=== PATIENT | male | born 1945 | race Caucasian/White ===

== ENCOUNTER 2016-09-30 13:29 | Outpatient (CLI) | payer MEDICARE, BC ==
[2016-09-30 13:51] LABS: #Basophils 0.1 thou/uL (0.0-0.2); #Eosinphils 0.2 thou/uL (0.0-0.7); #Monocytes 0.5 thou/uL (0.11-0.59); #Neutrophils 4.3 thou/uL (1.40-6.50); %Basophils 1.2 % (0.0-1.0); %Eosinophils 2.5 % (0.0-10.0); %Lymphocytes 28.1 % (21.0-51.0); %Monocytes 7.4 % (0.0-10.0); %Neutrophils 60.9 % (42.0-75.0); Hemoglobin 15.9 g/dL (14.0-18.0); Mean Corpuscular HGB CONC 34.8 g/dL (32.0-36.0); Mean Corpuscular Hemoglobin 33.8 pg (27.0-31.0); Mean Corpuscular Volume 97.3 fl (80.0-94.0); Mean Platelet Volume 6.9 fL (7.4-10.4); Platelet Count 234 thou/uL (130-400); RBC Distribution Width 11.9 % (11.5-14.5); Red Blood Cell (RBC) Count 4.69 mill/uL (4.70-6.10)
[2016-09-30 14:12] LABS: ALT (SGPT) Less than 6 U/L (0-55); AST (SGOT) 15 U/L (5-34); Albumin 4.5 g/dL (3.4-4.8); Alkaline Phosphatase 95 U/L (40-150); Anion Gap 16 mmol/L (10-20); BUN (Urea Nitrogen) 25 mg/dL (8.4-25.7); Bilirubin, Direct 0.2 mg/dL (0.1-0.3); Bilirubin, Total 0.6 mg/dL (0.2-1.2); Calc. Creatinine Clearance 0 mL/min (70-130); Calcium 9.3 mg/dL (7.8-10.44); Carbon Dioxide 25 mmol/L (23-31); Cardiac Risk 3.9 (Less than 4.5); Chloride 106 mmol/L (98-107); Cholesterol 113 mg/dL (< 200 Desired); Estimated GFR-MDRD 90; Glucose 106 mg/dL (80-115); HDL Cholesterol 29 mg/dL (>60 Neg Risk); LDL Cholesterol, Calculated 37 mg/dL; Potassium 4.5 mmol/L (3.5-5.1); Protein, Total 6.9 g/dL (5.8-8.1); Sodium 142 mmol/L (136-145); Triglycerides 237 mg/dL (Less than 150)
== END 2016-09-30 13:30 | disposition home or self-care (01) ==
LOC: MADLABBHPM 13:29
PROVIDERS: ATTEND Family Medicine
DX: I10 Essential (primary) hypertension (principal)
CPT/HCPCS: 36415; 80048; 80061; 80076; 84443; 85025

== ENCOUNTER 2017-05-05 13:31 | Outpatient (CLI) | payer MEDICARE, BC | END 2017-05-05 13:32 | disposition home or self-care (01) | LOC: MADLAB 13:31 | PROVIDERS: ATTEND Urology | DX: G20 Parkinson's disease (principal) | CPT/HCPCS: 36415; G0103 ==

== ENCOUNTER 2017-07-21 12:49 | Outpatient (CLI) | payer MEDICARE, BC ==
--- NOTE | 2017-07-21 17:00 | RAD ---
TWO VIEW CHEST 07/21/17 HISTORY: Solitary pulmonary nodule. Side of nodule is not specified. Comparison made to a prior exam of 11/13/14. Lungs are well aerated. There is no evidence of infiltrate. There is evidence of two small calcified granuloma in the right mid lung which appears stable. Heart and mediastinum unremarkable. Osseous str uctures are unremarkable. IMPRESSION: Tiny calcified granuloma in the right lung are stable. Chest is unchanged from prior exam with no acu te process identified. POS: [facility]
--- NOTE | 2017-07-21 17:11 | RAD ---
TWO VIEWS LUMBAR SPINE: Date: 07-21-17 History: Low back pain. FINDINGS: Vascular calcifications are seen overlying the left upper quadrant. There also calcifications overlyi ng the right upper quadrant as well as left renal shadow. The right renal shadow is mostly obscured. Calcification of the right upper quadrant could be related to ingested material given the concentric nature. However, the calcification overlying the left renal shadow may represent left nephrolithiasis but no calculus is seen on a CT exam on 06-10-17. Vascular calcifications are seen in the abdominal aorta and iliac arteries. There are five non-rib bearing lumbar type vertebral bodies. Multilevel osteophytes are seen with bashir rowing of the intervertebral disc spaces at all levels. There are mild endplate degenerative changes at the L2-3 level. The vertebral body heights are within normal limits. There is no fracture or sublu xation involving the lumbar spine. IMPRESSION: 1. Multilevel degenerative changes of the lumbar spine without evidence of fracture or subluxation. T here is slight convex curvature of the lumbar spine. 2. Calcifications overlying the upper quadrants bilaterally which may be related to ingested material within bowel. While these calcifications also overlie the renal shadows bilaterally, no calculus was seen on a CT exam on 06-10-17. POS: [facility]
== END 2017-07-21 12:50 | disposition home or self-care (01) ==
LOC: MADLABBHPM 12:49
PROVIDERS: ATTEND Urology
DX: R91.1 Solitary pulmonary nodule (principal); M54.5 Low back pain; R82.8 Abnormal findings on cytological and histological examination of urine
CPT/HCPCS: 36415; 71020; 72100; 88121

== ENCOUNTER 2017-11-28 23:30 | Emergency (ER) | payer MEDICARE, BC ==
[~2017-11-28 23:30] MED LIST: Sterile Water Irrigation 250 ML BOT ONE
== END 2017-11-28 23:55 | disposition home or self-care (01) ==
LOC: MADERS 23:30
DX: S01.01XA Laceration without foreign body of scalp, initial encounter (principal); F32.9 Major depressive disorder, single episode, unspecified; G20 Parkinson's disease; W17.89XA Other fall from one level to another, initial encounter
CPT/HCPCS: 99283

== ENCOUNTER 2017-12-08 11:20 | Emergency (ER) | payer MEDICARE, BC | END 2017-12-08 14:16 | disposition home or self-care (01) | LOC: MADERS 11:20 | DX: S01.01XD Laceration without foreign body of scalp, subsequent encounter (principal); G20 Parkinson's disease; F32.9 Major depressive disorder, single episode, unspecified ==

== ENCOUNTER 2018-06-18 14:06 | Outpatient (CLI) | payer MEDICARE, BC ==
[2018-06-18 14:14] LABS: Sodium 142 mmol/L (136-145)
== END 2018-06-18 14:07 | disposition home or self-care (01) ==
LOC: MADLAB 14:06
PROVIDERS: ATTEND Urology
DX: G20 Parkinson's disease (principal)
CPT/HCPCS: 84295

== ENCOUNTER 2018-09-08 11:10 | Inpatient (IN) | payer MEDICARE, BC ==
[~2018-09-08 11:10] MED LIST changes: +Sodium Chloride 0.9% 1,000 ML BAG ONE; -Sterile Water Irrigation 250 ML BOT ONE
[2018-09-08 11:49] LABS: #Eosinphils 0.1 thou/uL (0.0-0.7); #Lymphocytes 1.2 thou/uL (1.20-3.40); #Monocytes 0.5 thou/uL (0.11-0.59); %Basophils 0.4 % (0.0-1.0); %Eosinophils 0.8 % (0.0-10.0); %Lymphocytes 13.1 % (21.0-51.0); %Monocytes 5.8 % (0.0-10.0); %Neutrophils 79.8 % (42.0-75.0); Hemoglobin 15.2 g/dL (14.0-18.0); Mean Corpuscular Hemoglobin 33.4 pg (27.0-31.0); Mean Corpuscular Volume 95.4 fL (78.0-98.0); Mean Platelet Volume 6.3 fL (7.4-10.4); Platelet Count 287 thou/uL (130-400); RBC Distribution Width 11.3 % (11.5-14.5); Red Blood Cell (RBC) Count 4.53 mill/uL (4.70-6.10); White Blood Cell (WBC) Count 8.8 thou/uL (4.8-10.8)
[2018-09-08 12:00] LABS: ALT (SGPT) 8 U/L (8-55); AST (SGOT) 17 U/L (5-34); Albumin 4.5 g/dL (3.4-4.8); Alkaline Phosphatase 132 U/L (40-150); Anion Gap 15 mmol/L (10-20); BUN (Urea Nitrogen) 17 mg/dL (8.4-25.7); Bilirubin, Total 0.7 mg/dL (0.2-1.2); Calc. Creatinine Clearance 0 mL/min (70-130); Carbon Dioxide 26 mmol/L (23-31); Chloride 102 mmol/L (98-107); Estimated GFR-MDRD Greater than 90; Globulin 3.4 g/dL (2.4-3.5); Glucose 92 mg/dL (83-110); Potassium 3.8 mmol/L (3.5-5.1); Protein, Total 7.9 g/dL (5.8-8.1); Sodium 139 mmol/L (136-145)
--- NOTE | 2018-09-08 12:59 | RAD ---
UPRIGHT PORTABLE CHEST ONE VIEW: HISTORY: Cough. COMPARISON: 07/21/2017 FINDINGS: Heart size is within normal limits. Minimal increased linear and interstitial markings bilaterally w ithout confluent pneumonia or overt edema. IMPRESSION: Mild stable increased markings. No evidence for pneumonia. POS: [facility]
[2018-09-08 13:12] LABS: Bilirubin Negative (Negative); Blood, Urine Trace (Negative); Glucose, Urine (Dipstick) Negative (Negative); Leukocyte Small (Negative); Nitrite Positive (Negative); Protein, Urine (Dipstick) 100 mg/dL (Neg-Trace); Specific Gravity, Urine 1.025 (1.005-1.030); pH, Urine 7.5 (5.0-9.0)
[2018-09-08 13:13] LABS: Clarity Cloudy (Clear)
[2018-09-08 13:17] LABS: Bacteria/HPF 1+ HPF (None Seen); RBC/HPF 0-3 HPF (0-3); Squamous Epithelial 0-3 HPF (0-3)
[2018-09-08] MEDS ORDERED: cefTRIAXone\\ROCEPHIN 1 GM VIAL ONE (14:02)
[2018-09-08] MEDS ORDERED: Acetaminophen 650 MG Suppository PR PRN (15:05)
[2018-09-08] MEDS ORDERED: Ondansetron PF 4 MG/2 ML Vial SLOW IVP PRN (15:05)
[2018-09-08 15:12] VITALS: BMI 21.4
[2018-09-08] MEDS ORDERED: Sodium Chloride 0.9% 1,000 ML IV SCH (15:15)
[2018-09-08 16:41] LABS: Lactic Acid 1.8 mmol/L (0.5-2.2)
[2018-09-08] MEDS: Sodium Chloride 0.9% 1,000 ML IV SCH ×3 (17:48→21:39)
[2018-09-08] MEDS ORDERED: ZONISAMIDE 50 MG PO SCH (21:00)
[2018-09-08] MEDS ORDERED: Potassium Chloride 10 MEQ TAB PO SCH (21:00)
[2018-09-08] MEDS: Carbidopa/Levodopa 25-250 mg Tablet PO SCH (21:24)
[2018-09-08] MEDS: Carbidopa/Levodopa CR 50-200 mg Tablet PO SCH (21:24)
[2018-09-08] MEDS: risperiDONE 1 MG TAB PO SCH (21:26)
[2018-09-08] MEDS: Tamsulosin HCl 0.4 MG CAP PO SCH (21:27)
[2018-09-08] MEDS: DESMOPRESSIN ACETATE 0.2 MG PO SCH (21:53)
[2018-09-09 05:32] LABS: #Eosinphils 0.1 thou/uL (0.0-0.7); #Lymphocytes 1.7 thou/uL (1.20-3.40); #Monocytes 0.5 thou/uL (0.11-0.59); #Neutrophils 4.8 thou/uL (1.40-6.50); %Basophils 0.4 % (0.0-1.0); %Eosinophils 1.3 % (0.0-10.0); %Lymphocytes 23.9 % (21.0-51.0); %Monocytes 7.5 % (0.0-10.0); Hemoglobin 13.1 g/dL (14.0-18.0); Mean Corpuscular HGB CONC 35.1 g/dL (32.0-36.0); Mean Corpuscular Hemoglobin 32.9 pg (27.0-31.0); Mean Corpuscular Volume 93.8 fL (78.0-98.0); Mean Platelet Volume 6.4 fL (7.4-10.4); Platelet Count 265 thou/uL (130-400); RBC Distribution Width 11.3 % (11.5-14.5); Red Blood Cell (RBC) Count 3.98 mill/uL (4.70-6.10); White Blood Cell (WBC) Count 7.2 thou/uL (4.8-10.8)
[2018-09-09] MEDS: Sodium Chloride 0.9% 1,000 ML IV SCH ×2 (05:44→05:48)
[2018-09-09 05:47] LABS: Anion Gap 13 mmol/L (10-20); BUN (Urea Nitrogen) 11 mg/dL (8.4-25.7); Calc. Creatinine Clearance 94 mL/min (70-130); Calcium 8.9 mg/dL (7.8-10.44); Carbon Dioxide 22 mmol/L (23-31); Chloride 109 mmol/L (98-107); Estimated GFR-MDRD Greater than 90; Glucose 95 mg/dL (83-110); Potassium 3.4 mmol/L (3.5-5.1); Sodium 141 mmol/L (136-145)
[2018-09-09] MEDS: Acetaminophen 325 MG TAB PO PRN ×2 (06:14→21:20)
[2018-09-09] MEDS ORDERED: Sodium Chloride 0.9% 1,000 ML IV SCH (08:14)
[2018-09-09] MEDS: Venlafaxine HCl XR 150 MG CAP PO SCH (08:39)
[2018-09-09] MEDS: Carbidopa/Levodopa CR 50-200 mg Tablet PO SCH ×3 (08:39→21:16)
[2018-09-09] MEDS: Carbidopa/Levodopa 25-250 mg Tablet PO SCH ×3 (08:39→21:16)
[2018-09-09] MEDS: Tamsulosin HCl 0.4 MG CAP PO SCH ×2 (08:39→21:19)
[2018-09-09] MEDS: Dextroamphetamine/Amphetamine [Adderall 20 Mg Tablet] 20 MG PO SCH (09:02)
[2018-09-09] MEDS: VERAPAMIL HCL 180 MG PO SCH (09:02)
[2018-09-09] MEDS: Enoxaparin Sodium 40 MG/0.4 ML SYRINGE SC SCH (09:04)
[2018-09-09] MEDS: Atorvastatin Calcium 10 MG TAB PO SCH (09:06)
[2018-09-09] MEDS: Potassium Chloride 20 MEQ TAB PO SCH ×2 (09:43→18:31)
[2018-09-09] MEDS ORDERED: cefTRIAXone\\ROCEPHIN 1 GM in Sodium Chloride 0.9% 100 ML IVPB SCH (14:00)
--- NOTE | 2018-09-09 14:28 | HP ---
Admitted to acute care on 09/08/2018. CHIEF COMPLAINT: Not responding as usual and marked increased weakness. HISTORY OF PRESENT ILLNESS: The patient is a 73-year-old white male, who has a history of advanced Parkinson disease, complicated by some dysphagia, who requires assistance with all his ADLs. He lives with his , who is his primary caregiver. He also has hypertension and depression. The patient had been seen in my office on the day before this admission for checkup and also because he was having increased trouble with managing his oral secretions, it seemed likely he could not spit these up and he was having little increased trouble with his swallowing and at times coughing following drinking liquids. At the time of the visit on 09/07, he was up in a wheelchair, was alert, interactive with clear lungs, and was in no distress. Arrangements were made for his home health service to have Speech Therapy see him and arrange for modified barium swallow. In the interval, he was going to continue the mechanical soft diet, thickened liquids if necessary, and dietary modifications to assist with the eating. On the following morning, the morning of 09/08/2018, the patient's , Mari, went to get him up out of bed and he seemed very weak and was not in his usual alert and interactive state. She went to try to get him up and he kind of wilted down into the floor. He did not hit his head nor did he lose consciousness, but he was so weak , he was unable to stand. He was not able to get up on his own nor with his 's help. She also noticed that he would not talk ordinarily, he can engage in some conversation. This morning, he just kind of stared and looked at her and would not answer any questions. EMS was called, and they assisted him up and found him to be weak and still less interactive than usual. As a result, he was brought to the emergency room, where he was evaluated. In the emergency room, he was found to have a blood pressure of 117/48 with a pulse of 82, O2 saturation of 92%, and respirations of 14. He was not very interactive. He was started on IV fluids as further workup was done. The patient's , Mari, has asked me to check him and as I had just seen him yesterday. The patient had been in the emergency room for a while and had an opportunity to receive some fluids. After I saw him, his said he was better, much more engaged and talkative, and recognized me and said he was feeling okay. He did not have any specific complaints. He was still extremely weak and could not sit up on the stretcher without help and certainly could not get up and stand or walk, which ordinarily he is able to do. His lab work was reviewed, which showed an H and H of 15.2 and 43.3 with a white cell count of 8800 with 80% segs, 13% lymphocytes, platelet count of 287,000, and hemoglobin of 15.2. Sodium 139, potassium of 3.8, BUN of 17, creatinine 0.83, GFR greater than 90, and glucose 92. His lactic acid was 2.4. This was later repeated. Few hours later, after fluids have been received, it was down to 1.8. Urine was obtained, and the urine looked very cloudy and malodorous, had positive nitrite and wbc's were too numerous to count. There were 0 to 3 squamous epithelial cells. Chest x-ray showed the heart size was normal. There was no evidence of infiltrate, maybe a little atelectasis at the left base. No evidence of any CHF. In visiting with the patient and his , his mental status is little better and he is kind of waking back up to a more alert state, but he is still extremely weak and would not be able to be managed at home on his weakened state. It appears the patient has urinary tract infection complicated by dehydration, presenting with altered mental status and increased weakness that has left him nonambulatory. The patient will be admitted for these diagnoses, for IV fluid hydration, and IV antibiotics. He has had cultures drawn and then received his first dose of Rocephin in the emergency room. 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 He also has hypertension, diverticulosis, history of hyperlipidemia, particularly with hypertriglyceridemia; cluster headaches, controlled with verapamil; depression with apathy. Colonoscopy in 2004 showed diverticular disease. PRESENT MEDICATIONS: 1. Atorvastatin 40 mg daily. 2. Venlafaxine ER 150 mg daily. 3. KCl 10 mEq one b.i.d. 4. Fluticasone two sprays in each nostril daily. 5. Verapamil ER 180 mg daily. 6. Carbidopa/levodopa extended release 50/200 one t.i.d. 7. Carbidopa/levodopa 25/250 one t.i.d. 8. Adderall XR 10 mg q.a.m. 9. Restasis 0.05% one drop in the eyes b.i.d. 10. Tamsulosin 0.4 mg b.i.d. 11. Risperdal 2 mg one at night. 12. Cromolyn Sodium 4% ophthalmic solution one drop in the eyes t.i.d. 13. Desmopressin 0.2 mg three tablets at bedtime. 14. Finasteride 5 mg daily. ALLERGIES: AMITRIPTYLINE CAUSES ANXIETY, PALPITATIONS, AND RACING HEART. REVIEW OF SYSTEMS: GENERAL: The patient said he is feeling better. His said he has had no fevers. She does not think his weight has changed. HEAD AND NECK: No complaint. When he wilted into the floor this morning, he did not hit his head nor was he injured. PULMONARY: The patient at times has a little mild productive cough. He has a frequent rattle because he cannot clear the saliva in his throat due to weakness. CARDIOVASCULAR: No chest pain. GI: The patient has trouble swallowing and swallowing some liquids. He is on a mechanical soft diet. : Presently no complaint. ADLs: The patient is receiving physical therapy through Home Health and this helps him. He can walk with walker and some aid. He requires assistance with bathing and dressing. He is usually continent of urine and stools and usually feeds himself, requires someone to manage all his instrumental ADLs. HABITS: The patient smokes less than half a pack of cigarettes a day. Alcohol, none. SOCIAL HISTORY: The patient is , lives with his who is his primary caregiver. Has home health to assist with his care. CODE STATUS: Full code. PHYSICAL EXAMINATION: GENERAL: Shows a 73-year-old white male, who is lying on the stretcher with the head of the bed elevated. He is alert, talks very slowly, appears comfortable, and in no distress. VITAL SIGNS: His temperature is 96.2, pulse 81, respirations are 20, O2 saturation 94% on room air, and blood pressure 126/64. His weight is 154 pounds. His height is 70 inches. HEENT: Head, normocephalic and atraumatic. Eyes; pupils are equal, round, and reactive. Nose normal. Mouth and throat, normal. Ears; TMs are clear. NECK: Carotids are equal and strong. No bruits. Thyroid not enlarged. LUNGS: Clear except for some mild coarse expiratory breath sounds. HEART: Regular rate. No murmurs. ABDOMEN: Soft. No organomegaly. EXTREMITIES: No edema. NEUROLOGIC: The patient is alert, very slow in answering questions, speaks in a monotone. His face has no expression. He has generalized weakness. There was no stiffness or cogwheeling in his extremities. IMPRESSION: 1. Urinary tract infection. a. Presenting with altered mental status, dehydration, increased weakness, and a fall. 2. Dehydration. 3. Altered mental status. a. Secondary to the urinary tract infection and dehydration. b. Improved with the IV fluids. 4. Marked increased weakness. a. Complicated by fall with no injuries on the morning of 09/08/2018. 5. Advanced Parkinson disease. a. Complicated by dysphagia, gait abnormality, weakness, and increased falls. b. Requires assistance with ADLs. c. Complicated by Parkinson dementia. 6. Hypertension. 7. Depression. a. Complicated by apathy. 8. Cigarette abuse. 9. History of pulmonary granuloma. PLAN: The patient has been admitted to the hospital due to the urinary tract infection, presenting with altered mental status, weakness, fall, and dehydration. We will continue the IV fluids and the IV antibiotics. Once he is a little better, we will have Physical Therapy begin working with him in an effort to try to improve his functional capabilities. We will also have Speech Therapy see him to assess the dysphagia and at some point, we will need a modified barium swallow. Continue his routine medication. See orders. Job ID: [id number] [facility]TDD
--- NOTE | 2018-09-09 14:28 | PRG ---
DATE OF SERVICE: 09/09/2018 SUBJECTIVE: The patient said he feels better today. He has had a good night. He is sitting up on the side of the bed preparing to walk with physical therapy. OBJECTIVE: GENERAL: The patient is alert, answers questions appropriately, looks much better, much more interactive, and looks back to his baseline mental status. VITAL SIGNS: His vital signs show temperature 99.9, pulse 80, respirations 18, O2 saturation 94% on room air, and blood pressure 106/51. LUNGS: Clear. HEART: Regular rate. MOUTH: Mucous membranes are moist. SKIN: Turgor is good. LABORATORY DATA: Lab shows an H and H of 13.1 and 37.4, white cell count 7200 with 67% segs, 24% lymphocytes, and a platelet count of 265,000. Sodium is 141, potassium 3.4, BUN is 11, creatinine 0.7, GFR greater than 90, glucose 95. Urine and blood cultures pending. ASSESSMENT: 1. Urinary tract infection. a. Presenting with altered mental status, dehydration, increased weakness, and a fall. b. Improved as of 09/09/2018. 2. Dehydration. a. Resolved as of 09/09/2018. 3. Altered mental status. a. Secondary to the urinary tract infection and dehydration. b. Resolving. Returned to his baseline as of 09/09/2018. 4. Marked increased weakness. a. Complicated by fall with no injuries on the morning of 09/08/2018. b. Improved. 5. Advanced Parkinson disease. a. Complicated by dysphagia, gait abnormality, weakness, and increased falls. b. Requires assistance with ADLs. c. Complicated by Parkinson dementia. 6. Hypertension. 7. Depression. a. Complicated by apathy. 8. Cigarette abuse. 9. History of pulmonary granuloma. PLAN: The patient looks much better today. We will continue the IV antibiotics. Cultures are pending. We will reduce his fluids to 75 mL/hour. PT will continue to work with him, and Occupational Therapy will be working with him. We will increase his potassium supplementation. Recheck lytes and CBC in the morning. Job ID: [id number] [facility]
[2018-09-09] MEDS: DESMOPRESSIN ACETATE 0.2 MG PO SCH (21:16)
[2018-09-09] MEDS: ZONISAMIDE 25 MG PO SCH (21:18)
[2018-09-09] MEDS: risperiDONE 1 MG TAB PO SCH (21:19)
[2018-09-10 04:59] LABS: #Eosinphils 0.1 thou/uL (0.0-0.7); #Monocytes 0.5 thou/uL (0.11-0.59); %Basophils 0.6 % (0.0-1.0); %Eosinophils 1.9 % (0.0-10.0); %Lymphocytes 35.8 % (21.0-51.0); %Monocytes 9.2 % (0.0-10.0); %Neutrophils 52.6 % (42.0-75.0); Hemoglobin 13.5 g/dL (14.0-18.0); Mean Corpuscular HGB CONC 34.5 g/dL (32.0-36.0); Mean Corpuscular Hemoglobin 32.5 pg (27.0-31.0); Mean Corpuscular Volume 94.3 fL (78.0-98.0); Mean Platelet Volume 6.2 fL (7.4-10.4); Platelet Count 239 thou/uL (130-400); RBC Distribution Width 11.6 % (11.5-14.5); Red Blood Cell (RBC) Count 4.15 mill/uL (4.70-6.10); White Blood Cell (WBC) Count 5.6 thou/uL (4.8-10.8)
[2018-09-10 05:10] LABS: Anion Gap 13 mmol/L (10-20); BUN (Urea Nitrogen) 8 mg/dL (8.4-25.7); Calc. Creatinine Clearance 90 mL/min (70-130); Calcium 9.3 mg/dL (7.8-10.44); Carbon Dioxide 25 mmol/L (23-31); Chloride 107 mmol/L (98-107); Estimated GFR-MDRD Greater than 90; Glucose 95 mg/dL (83-110); Potassium 3.6 mmol/L (3.5-5.1); Sodium 141 mmol/L (136-145)
[2018-09-10] MEDS: Potassium Chloride 20 MEQ TAB PO SCH ×2 (09:44→16:40)
[2018-09-10] MEDS: Tamsulosin HCl 0.4 MG CAP PO SCH ×2 (09:45→21:05)
[2018-09-10] MEDS: Carbidopa/Levodopa 25-250 mg Tablet PO SCH ×3 (09:45→21:06)
[2018-09-10] MEDS: Enoxaparin Sodium 40 MG/0.4 ML SYRINGE SC SCH (09:45)
[2018-09-10] MEDS: Atorvastatin Calcium 10 MG TAB PO SCH (09:45)
[2018-09-10] MEDS: Carbidopa/Levodopa CR 50-200 mg Tablet PO SCH ×3 (11:33→21:05)
[2018-09-10] MEDS: Dextroamphetamine/Amphetamine [Adderall 20 Mg Tablet] 20 MG PO SCH (14:30)
--- NOTE | 2018-09-10 14:36 | PRG ---
DATE OF SERVICE: 09/10/2018 SUBJECTIVE: Last evening, the patient pulled his IV out, it stopped. He has been eating well and taking fluids and he has had no more fever. The IV Rocephin was stopped, and he was placed on Levaquin. Speech Therapy has seen the patient and the patient is on observations of different food substances with slowness of swallowing, trouble moving food to the back of his throat, and with liquids will cough. It was concerned about possible aspiration and she has recommended a modified barium swallow to further assess his difficulties. In the interval, she has recommended continuation of a pureed diet and nectar-thickened liquids, which has been ordered and crushed medicines. His says he has no trouble taking medicines and he seems to eat very well. A modified barium swallow has been ordered. OBJECTIVE: GENERAL: The patient apparently did not rest well last night. This , morning, was sleeping, and gradually, he was awaken and he appears in no distress. VITAL SIGNS: Temperature of 97.8, pulse 80, respirations 16, oxygen saturation 96% on room air, blood pressure 156/97. LUNGS: Clear. HEART: Regular rate. LABORATORY DATA: H and H of 13.5 and 39.1, white blood cell count 5600 with 53% segs, 36% lymphocytes, and platelet count of 239,000. Sodium is 141, potassium 3.6, BUN 8, creatinine 0.73, GFR greater than 90, glucose 95. Blood cultures have no growth x2. Urine cultures growing a Proteus mirabilis, colony count of 50,000 to 75,000, sensitive to ceftriaxone, Cipro, and Levaquin. ASSESSMENT: 1. Urinary tract infection. a. Presenting with altered mental status, dehydration, increased weakness and fall. b. Urine culture growing Proteus mirabilis, colony count 50,000 to 75,000. Organisms sensitive to ceftriaxone and Levaquin. Blood cultures, no growth. c. Improved and now on oral antibiotics with Levaquin as of 09/10/2018. 2. Dehydration. a. Resolved as of 09/10/2018. 3. Altered mental status. a. Secondary to urinary tract infection and dehydration. b. Resolved and back to his baseline as of 09/10/2018. 4. Marked increased weakness. a. Complicated by falls with no injury on the morning of 09/08/2018. b. Improved as of 09/10/2018. 5. Advanced Parkinson's disease. a. Complicated by dysphagia, gait abnormality, weakness, and increased falls. b. Requires assistance with ADLs. c. Complicated by Parkinson's dementia. 6. Hypertension. 7. Depression. Complicated by apathy. 8. Cigarette abuse. 9. History of pulmonary granuloma. 10. Dysphagia. PLAN: The patient is better today and has been able to be switched to oral antibiotics. The dehydration is resolved. He is still very weak, did not rest well last night. We will continue physical therapy and occupational therapy, anticipate moving him to extended care for continuation of the therapy tomorrow. Arrangements have been made for him to undergo modified barium swallow this afternoon. We will phase out his Adderall, we will reduce this to 10 mg daily, and after a day or two, we will stop this. Job ID: [id number] [facility]TD[facility]
[2018-09-10] MEDS: VERAPAMIL HCL 180 MG PO SCH (16:41)
[2018-09-10] MEDS: Venlafaxine HCl XR 150 MG CAP PO SCH (16:41)
[2018-09-10] MEDS: DESMOPRESSIN ACETATE 0.2 MG PO SCH (21:06)
[2018-09-10] MEDS: risperiDONE 1 MG TAB PO SCH (21:06)
[2018-09-10] MEDS: ZONISAMIDE 25 MG PO SCH (21:08)
[2018-09-11 06:46] VITALS: BP 165/73; TEMP 97.5
[2018-09-11] MEDS ORDERED: Sodium Chloride 0.9% 1,000 ML BAG ONE (06:48)
[2018-09-11] MEDS: Enoxaparin Sodium 40 MG/0.4 ML SYRINGE SC SCH (08:08)
[2018-09-11] MEDS: Potassium Chloride 20 MEQ TAB PO SCH (08:08)
[2018-09-11] MEDS: Tamsulosin HCl 0.4 MG CAP PO SCH (08:08)
[2018-09-11] MEDS: Atorvastatin Calcium 10 MG TAB PO SCH (08:08)
[2018-09-11] MEDS: Venlafaxine HCl XR 150 MG CAP PO SCH (08:09)
[2018-09-11] MEDS: Carbidopa/Levodopa CR 50-200 mg Tablet PO SCH (08:09)
[2018-09-11] MEDS: Carbidopa/Levodopa 25-250 mg Tablet PO SCH (08:09)
[2018-09-11] MEDS: VERAPAMIL HCL 180 MG PO SCH (08:20)
[2018-09-11] MEDS ORDERED: Dextroamphetamine/Amphetamine [Adderall 20 Mg Tablet] 20 MG PO SCH (09:00)
--- NOTE | 2018-09-12 13:13 | PRG ---
DATE OF SERVICE: 09/11/2018 SUBJECTIVE: The patient is up in his [place] chair this morning. He is awake and he talks to me some, but very slow. His movements are very slow. He is still weak, but overall he looks better. He is much more alert and interactive. Yesterday, he tolerated the trip to [place] for his modified barium swallow. OBJECTIVE: GENERAL: The patient is sitting up in chair. He is alert, talks slowly to me, appears better. He is in no distress. VITAL SIGNS: His temperature is 97.5, pulse 79, respirations 16, O2 saturation 94%, and blood pressure 165/73. LUNGS: Clear. HEART: Regular rate. LABORATORY DATA: The modified barium swallow showed penetration and aspiration with thin liquid consistencies. The other consistency showed evidence of premature spillage into the vallecula and the piriform sinuses. Oral pharyngeal swallowing is delayed. Report from speech therapy pending. ASSESSMENT: 1. Urinary tract infection. a. Presenting with altered mental status, dehydration, increased weakness and fall. b. Urine culture growing Proteus mirabilis, colony count 50,000 to 75,000. Organisms sensitive to ceftriaxone and Levaquin. Blood cultures, no growth. c. Improved. Remains on oral antibiotics with Levaquin as of 09/11/2018. 2. Dehydration. a. Resolved as of 09/10/2018. 3. Altered mental status. a. Secondary to urinary tract infection and dehydration. b. Resolved and back to his baseline as of 09/10/2018. c. Remains at his mental status baseline as of 09/11. 4. Marked increased weakness. a. Complicated by falls with no injury on the morning of 09/08/2018. b. Improved where he is tolerating sitting up in a chair and walks short distance with the aid of therapy as of 09/11/2018. 5. Advanced Parkinson's disease. a. Complicated by dysphagia, gait abnormality, weakness, and increased falls. b. Requires assistance with ADLs. c. Complicated by Parkinson's dementia. 6. Hypertension. 7. Depression. Complicated by apathy. 8. Cigarette abuse. 9. History of pulmonary granuloma. 10. Dysphagia. a. Modified barium swallow showed penetration and aspiration with thin liquids, delayed swallowing and spillage into the vallecula and piriform sinuses. Study done on 09/10. He requires a pureed diet with honey thickened liquids. PLAN: The patient will complete a 7-day course of Levaquin. Speech Therapy will continue to work with the patient. The patient will be on a pureed diet with honey-thickened liquids. PT and OT will also continue to work with the patient. We will transfer the patient to extended care where he can receive these services. Job ID: [id number] [facility]TDD
== END 2018-09-11 13:10 | disposition swing bed (61) | DRG 690 ==
LOC: MADERS 11:10 → MADMS 13:45
PROVIDERS: ADMIT Family Medicine; ATTEND Family Medicine
DX: N39.0 Urinary tract infection, site not specified (principal); E86.0 Dehydration; G20 Parkinson's disease; F02.80 Dementia in other diseases classified elsewhere, unspecified severity, without behavioral disturbance, psychotic disturbance, mood disturbance, and anxiety; I10 Essential (primary) hypertension; F32.9 Major depressive disorder, single episode, unspecified; R13.10 Dysphagia, unspecified; F17.210 Nicotine dependence, cigarettes, uncomplicated; B96.4 Proteus (mirabilis) (morganii) as the cause of diseases classified elsewhere; R45.3 Demoralization and apathy; Z87.09 Personal history of other diseases of the respiratory system; Z79.899 Other long term (current) drug therapy; Z88.8 Allergy status to other drugs, medicaments and biological substances
CPT/HCPCS: 36415; 71045; 80048; 80053; 81003; 81015; 83605; 85025; 87040; 87077; 87086; 87186; 93005; J0696; J1650; J7050

== ENCOUNTER 2018-09-11 06:07 | Inpatient (IN) | payer MEDICARE, BC ==
[2018-09-11] MEDS: Carbidopa/Levodopa 25-250 mg Tablet PO SCH ×2 (15:29→20:34)
[2018-09-11] MEDS: Carbidopa/Levodopa CR 50-200 mg Tablet PO SCH ×2 (15:29→20:34)
[2018-09-11] MEDS: Potassium Chloride 20 MEQ TAB PO SCH (17:12)
[2018-09-11] MEDS: Tamsulosin HCl 0.4 MG CAP PO SCH (20:38)
[2018-09-11] MEDS: Melatonin 3 MG TAB PO PRN (20:38)
[2018-09-11] MEDS: risperiDONE 1 MG TAB PO SCH (20:38)
[2018-09-11] MEDS: ZONISAMIDE PO SCH (20:47)
[2018-09-11] MEDS: DESMOPRESSIN ACETATE 0.2 MG PO SCH (20:49)
[2018-09-11] MEDS ORDERED: DESMOPRESSIN ACETATE PO SCH (21:00)
[2018-09-12] MEDS: Venlafaxine HCl XR 150 MG CAP PO SCH (08:17)
[2018-09-12] MEDS: Carbidopa/Levodopa 25-250 mg Tablet PO SCH ×3 (08:17→20:48)
[2018-09-12] MEDS: Potassium Chloride 20 MEQ TAB PO SCH ×2 (08:17→17:13)
[2018-09-12] MEDS: Carbidopa/Levodopa CR 50-200 mg Tablet PO SCH ×3 (08:17→20:47)
[2018-09-12] MEDS: Tamsulosin HCl 0.4 MG CAP PO SCH ×2 (08:17→20:47)
[2018-09-12] MEDS: VERAPAMIL HCL 180 MG PO SCH (08:18)
[2018-09-12] MEDS: Dextroamphetamine/Amphetamine [Adderall] PO SCH (08:25)
[2018-09-12] MEDS: Atorvastatin Calcium 10 MG TAB PO SCH (20:47)
[2018-09-12] MEDS: risperiDONE 1 MG TAB PO SCH (20:47)
[2018-09-12] MEDS: ZONISAMIDE PO SCH (20:48)
[2018-09-12] MEDS: DESMOPRESSIN ACETATE 0.2 MG PO SCH (20:49)
[2018-09-13] MEDS: Tamsulosin HCl 0.4 MG CAP PO SCH ×2 (08:46→21:32)
[2018-09-13] MEDS: Carbidopa/Levodopa CR 50-200 mg Tablet PO SCH ×3 (08:46→21:28)
[2018-09-13] MEDS: Venlafaxine HCl XR 150 MG CAP PO SCH (08:46)
[2018-09-13] MEDS: Carbidopa/Levodopa 25-250 mg Tablet PO SCH ×3 (08:46→21:27)
[2018-09-13] MEDS: Potassium Chloride 20 MEQ TAB PO SCH ×2 (08:46→17:07)
[2018-09-13] MEDS: VERAPAMIL HCL 180 MG PO SCH ×2 (08:50→11:05)
[2018-09-13] MEDS: Dextroamphetamine/Amphetamine [Adderall] PO SCH (09:32)
[2018-09-13] MEDS: Atorvastatin Calcium 10 MG TAB PO SCH (21:26)
[2018-09-13] MEDS: DESMOPRESSIN ACETATE 0.2 MG PO SCH (21:29)
[2018-09-13] MEDS: ZONISAMIDE PO SCH (21:30)
[2018-09-13] MEDS: risperiDONE 1 MG TAB PO SCH (21:30)
[2018-09-14] MEDS: Potassium Chloride 20 MEQ TAB PO SCH ×2 (08:48→17:00)
[2018-09-14] MEDS: Carbidopa/Levodopa 25-250 mg Tablet PO SCH ×3 (08:48→20:06)
[2018-09-14] MEDS: Tamsulosin HCl 0.4 MG CAP PO SCH ×2 (08:48→20:08)
[2018-09-14] MEDS: Venlafaxine HCl XR 150 MG CAP PO SCH (08:48)
[2018-09-14] MEDS: Carbidopa/Levodopa CR 50-200 mg Tablet PO SCH ×3 (08:48→20:06)
[2018-09-14] MEDS: Dextroamphetamine/Amphetamine [Adderall] PO SCH (08:49)
--- NOTE | 2018-09-14 09:31 | PRG ---
DATE OF SERVICE: 09/13/2018 SUBJECTIVE: Yesterday went well for patient. He had been given melatonin to use it to help him rest at night. Apparently, this has assisted and he has slept better. This morning, he was sleeping, but was able to be aroused with verbal stimuli. He had no complaints. Nurses report no new problems. OBJECTIVE: GENERAL: The patient is lying in bed, very quiet and looks comfortable. He has trouble with any movement. He appears stiff and slow with movements. VITAL SIGNS: His temperature is 98.4, pulse 83, respirations 20, O2 saturation 91% on room air, and blood pressure 153/71. LUNGS: Clear. HEART: Regular rate. ASSESSMENT: 1. Urinary tract infection. a. Presenting with altered mental status, dehydration, increased weakness and fall. b. Urine culture growing Proteus mirabilis, colony count 50,000 to 75,000. Organisms sensitive to ceftriaxone and Levaquin. Blood cultures, no growth. c. Asymptomatic. Afebrile. Completing a 7-day course of Levaquin as of . 2. Dehydration. a. Resolved as of 09/10/2018. 3. Altered mental status. a. Secondary to urinary tract infection and dehydration. b. Resolved and back to his baseline as of 09/10/2018. c. Remains at his mental status baseline as of 09/13/2018. 4. Marked increased weakness. a. Complicated by falls with no injury on the morning of 09/08/2018. b. Improved where he is tolerating sitting up in a chair and walks short distance with the aid of therapy as of 09/13/2018. 5. Advanced Parkinson's disease. a. Complicated by dysphagia, gait abnormality, weakness, and increased falls. b. Requires assistance with ADLs. c. Complicated by Parkinson's dementia. 6. Hypertension. 7. Depression. Complicated by apathy. 8. Cigarette abuse. 9. History of pulmonary granuloma. 10. Dysphagia. a. Modified barium swallow showed penetration and aspiration with thin liquids, delayed swallowing and spillage into the vallecula and piriform sinuses. Study done on 09/10. He requires a pureed diet with honey thickened liquids. PLAN: Continue present care. Continue PT and OT. Job ID: [id number] [facility]
--- NOTE | 2018-09-14 10:45 | PRG ---
DATE OF SERVICE: 09/14/2018 SUBJECTIVE: The patient had no complaint this morning. He has been taking the blended diet with nectar-thickened liquids without any problem. He is eating large amounts. He is working with Physical Therapy. He is walking up to 150 feet twice today with a rolling walker and standby assistance. He requires moderate assistance with any transfers. OBJECTIVE: GENERAL: The patient is lying in bed. He is awake, talks slowly. He appears comfortable, in no distress. VITAL SIGNS: Show a temperature of 98, pulse 85, respirations 18, O2 saturation 93% on room air. Blood pressure 160/78, last evening 146/67. LUNGS: Clear. HEART: Regular rate. ASSESSMENT: 1. Urinary tract infection. a. Presenting with altered mental status, dehydration, increased weakness, and falls. b. Urine culture grew Proteus mirabilis, colony count 50,000 to 75,000 with organisms sensitive to ceftriaxone and Levaquin. Blood cultures, no growth. c. Improved. Remains on oral Levaquin as of 09/14/2018. 2. Dehydration. a. Resolved. 3. Altered mental status. a. Secondary to urinary tract infection and dehydration. b. Resolved. Back to his mental status baseline. c. Remains at his normal mental status as of 09/14. 4. Marked increased weakness. a. Complicated by frequent falls. b. Improved, working with Physical Therapy, walking further with a rolling walker and standby assistance. Still requiring moderate assistance with transfers as of 09/14. 5. Advanced Parkinson disease. a. Complicated by dysphagia, gait abnormality, weakness, and increased falls. b. Requires assistance with ADLs. c. Complicated by Parkinson's dementia. 6. Hypertension. 7. Depression. 8. Cigarette abuse. 9. History of pulmonary granuloma. 10. Dysphagia. a. Modified barium swallow showed penetration aspiration with thin liquids, delayed swallowing with spillage into the vallecula and pyriform sinuses. Study done on 09/10. b. Requires a pureed diet with nectar-thickened liquids. PLAN: Continue present care. Continue speech therapy. Continue PT and OT. Job ID: [id number] [facility]
[2018-09-14] MEDS: VERAPAMIL HCL 180 MG PO SCH (12:06)
[2018-09-14] MEDS: Atorvastatin Calcium 10 MG TAB PO SCH (20:05)
[2018-09-14] MEDS: DESMOPRESSIN ACETATE 0.2 MG PO SCH (20:07)
[2018-09-14] MEDS: ZONISAMIDE PO SCH (20:08)
[2018-09-14] MEDS: risperiDONE 1 MG TAB PO SCH (20:08)
[2018-09-15] MEDS: Dextroamphetamine/Amphetamine [Adderall] PO SCH (08:31)
[2018-09-15] MEDS: Carbidopa/Levodopa CR 50-200 mg Tablet PO SCH ×3 (08:32→21:09)
[2018-09-15] MEDS: Potassium Chloride 20 MEQ TAB PO SCH ×2 (08:32→17:56)
[2018-09-15] MEDS: Carbidopa/Levodopa 25-250 mg Tablet PO SCH ×3 (08:32→21:09)
[2018-09-15] MEDS: Venlafaxine HCl XR 150 MG CAP PO SCH (08:32)
[2018-09-15] MEDS: Tamsulosin HCl 0.4 MG CAP PO SCH ×2 (08:32→21:12)
[2018-09-15] MEDS: VERAPAMIL HCL 180 MG PO SCH (08:33)
[2018-09-15] MEDS: Acetaminophen 325 MG TAB PO PRN ×2 (08:40→21:13)
--- NOTE | 2018-09-15 10:06 | PRG ---
DATE OF SERVICE: 09/15/2018 SUBJECTIVE: The patient has been doing well with his pureed diet with nectar-thickened liquids. He is eating large amount. He is doing better with his therapy. Still requires moderate amount of assistance with any transfers. Once he is on his feet, he does pretty well with his walking, but still needs standby assistance. This morning, he walked around to the therapy room and is working on the [employer], which gives good workout to his arms and legs. OBJECTIVE: GENERAL: The patient is sitting up on the NuStep. He is alert. He appears comfortable. VITAL SIGNS: Show a temperature of 98.2, pulse 78, respirations 18, O2 saturation 95% on room air, blood pressure 124/61. LUNGS: Clear. HEART: Regular rate. ASSESSMENT: 1. Urinary tract infection. a. Presenting with altered mental status, dehydration, increased weakness, and falls. b. Urine culture grew Proteus mirabilis, colony count 50,000 to 75,000 with organisms sensitive to ceftriaxone and Levaquin. Blood cultures, no growth. c. Improved. Remains on oral Levaquin as of 09/15/2018. 2. Dehydration. a. Resolved. 3. Altered mental status. a. Secondary to urinary tract infection and dehydration. b. Resolved. Back to his mental status baseline. c. Remains at his normal mental status as of 09/15/2018. 4. Marked increased weakness. a. Complicated by frequent falls. b. Improved, working with Physical Therapy, walking further with a rolling walker and standby assistance. Still requiring moderate assistance with transfers as of 09/15/2018. 5. Advanced Parkinson disease. a. Complicated by dysphagia, gait abnormality, weakness, and increased falls. b. Requires assistance with ADLs. c. Complicated by Parkinson's dementia. 6. Hypertension. 7. Depression. 8. Cigarette abuse. 9. History of pulmonary granuloma. 10. Dysphagia. a. Modified barium swallow showed penetration aspiration with thin liquids, delayed swallowing with spillage into the vallecula and pyriform sinuses. Study done on 09/10. b. Requires a pureed diet with nectar-thickened liquids, which he is tolerating well as of 09/15/2018. PLAN: Continue present care. Continue PT, OT, and speech therapy. Job ID: [id number] [facility]
[2018-09-15] MEDS: Atorvastatin Calcium 10 MG TAB PO SCH (21:09)
[2018-09-15] MEDS: DESMOPRESSIN ACETATE 0.2 MG PO SCH (21:10)
[2018-09-15] MEDS: ZONISAMIDE PO SCH (21:10)
[2018-09-15] MEDS: risperiDONE 1 MG TAB PO SCH (21:11)
[2018-09-15] MEDS: Melatonin 3 MG TAB PO PRN (21:13)
[2018-09-16] MEDS: Carbidopa/Levodopa 25-250 mg Tablet PO SCH ×3 (08:55→21:16)
[2018-09-16] MEDS: Carbidopa/Levodopa CR 50-200 mg Tablet PO SCH ×3 (08:56→21:16)
[2018-09-16] MEDS: Dextroamphetamine/Amphetamine [Adderall] PO SCH (08:56)
[2018-09-16] MEDS: Venlafaxine HCl XR 150 MG CAP PO SCH (08:56)
[2018-09-16] MEDS: Potassium Chloride 20 MEQ TAB PO SCH ×2 (08:56→17:03)
[2018-09-16] MEDS: Tamsulosin HCl 0.4 MG CAP PO SCH ×2 (08:56→21:17)
[2018-09-16] MEDS: VERAPAMIL HCL 180 MG PO SCH (08:56)
--- NOTE | 2018-09-16 10:01 | PRG ---
DATE OF SERVICE: 09/16/2018 SUBJECTIVE: The patient is doing good with physical therapy. He is walking better, but still requires [id number] assist with transfers. This morning, he is already in the therapy room working again on the [employer]. OBJECTIVE: GENERAL: The patient is alert, appears comfortable, in no distress. VITAL SIGNS: His temperature 97.7, pulse 77, respirations 18, O2 saturation 94% on room air, and blood pressure 139/67. LUNGS: Clear. HEART: Regular rate. EXTREMITIES: No edema. ASSESSMENT: 1. Urinary tract infection. a. Presenting with altered mental status, dehydration, increased weakness, and falls. b. Urine culture grew Proteus mirabilis, colony count 50,000 to 75,000 with organisms sensitive to ceftriaxone and Levaquin. Blood cultures, no growth. c. Resolved, has completed 9 days of antibiotics between the initial IV Rocephin and the oral Levaquin as of 09/16/2018. 2. Dehydration. a. Resolved. 3. Altered mental status. a. Secondary to urinary tract infection and dehydration. b. Resolved. Back to his mental status baseline. c. Remains at his normal mental status as of 09/16/2018. 4. Marked increased weakness. a. Complicated by frequent falls. b. Improved, working with Physical Therapy, walking further with a rolling walker and standby assistance. Still requiring moderate assistance with transfers as of 09/16/2018. 5. Advanced Parkinson disease. a. Complicated by dysphagia, gait abnormality, weakness, and increased falls. b. Requires assistance with ADLs. c. Complicated by Parkinson's dementia. 6. Hypertension. 7. Depression. 8. Cigarette abuse. 9. History of pulmonary granuloma. 10. Dysphagia. a. Modified barium swallow showed penetration aspiration with thin liquids, delayed swallowing with spillage into the vallecula and pyriform sinuses. Study done on 09/10. b. Requires a pureed diet with nectar-thickened liquids, which he is tolerating well as of 09/16/2018. PLAN: We will stop the Levaquin. I have been tapering his Adderall. We will stop this now. Continue PT and OT. Job ID: [id number] [facility]
[2018-09-16] MEDS: Atorvastatin Calcium 10 MG TAB PO SCH (21:15)
[2018-09-16] MEDS: risperiDONE 1 MG TAB PO SCH (21:16)
[2018-09-16] MEDS: ZONISAMIDE PO SCH (21:20)
[2018-09-16] MEDS: DESMOPRESSIN ACETATE 0.2 MG PO SCH (21:21)
[2018-09-17] MEDS: Potassium Chloride 20 MEQ TAB PO SCH ×2 (08:28→17:38)
[2018-09-17] MEDS: Venlafaxine HCl XR 150 MG CAP PO SCH (08:28)
[2018-09-17] MEDS: Carbidopa/Levodopa 25-250 mg Tablet PO SCH ×3 (08:28→20:34)
[2018-09-17] MEDS: Tamsulosin HCl 0.4 MG CAP PO SCH ×2 (08:28→20:34)
[2018-09-17] MEDS: Carbidopa/Levodopa CR 50-200 mg Tablet PO SCH ×3 (08:28→20:34)
[2018-09-17] MEDS: VERAPAMIL HCL 180 MG PO SCH (08:29)
--- NOTE | 2018-09-17 11:13 | PRG ---
DATE OF SERVICE: 09/17/2018 SUBJECTIVE: The patient is feeling better. He is doing better with his therapy. He is walking well, and he requires assistance to get up from a seated or lying position. Once up with his walker and standby assistance, he is able to ambulate. He walks with a shuffling gait. He is doing very well on the NuStep that works his arms and legs. He is having no trouble with cough or shortness of breath. OBJECTIVE: GENERAL: The patient was first seen on the NuStep working out, doing very well, and then walking with his walker with standby assistance. He walks with a shuffling gait. He appears very comfortable and in no distress. VITAL SIGNS: Temperature of 97.5, pulse 74, respirations 18, O2 saturation 97% on room air, and blood pressure 153/76. LUNGS: Clear. HEART: Regular rate. EXTREMITIES: No edema. ASSESSMENT: 1. Urinary tract infection. a. Presenting with altered mental status, dehydration, increased weakness, and falls. b. Urine culture grew Proteus mirabilis, colony count 50,000 to 75,000 with organisms sensitive to ceftriaxone and Levaquin. Blood cultures, no growth. c. Resolved, has completed 9 days of antibiotics between the initial IV Rocephin and the oral Levaquin as of 09/16/2018. 2. Dehydration. a. Resolved. 3. Altered mental status. a. Secondary to urinary tract infection and dehydration. b. Resolved. Back to his mental status baseline. c. Remains at his normal mental status as of 09/17/2018. 4. Marked increased weakness. a. Complicated by frequent falls. b. Improved, working with Physical Therapy, walking further with a rolling walker and standby assistance. Still requiring moderate assistance with transfers as of 09/17/2018. 5. Advanced Parkinson disease. a. Complicated by dysphagia, gait abnormality, weakness, and increased falls. b. Requires assistance with ADLs. c. Complicated by Parkinson's dementia. 6. Hypertension. 7. Depression. 8. Cigarette abuse. 9. History of pulmonary granuloma. 10. Dysphagia. a. Modified barium swallow showed penetration aspiration with thin liquids, delayed swallowing with spillage into the vallecula and pyriform sinuses. Study done on 09/10. b. Requires a pureed diet with nectar-thickened liquids, which he is tolerating well as of 09/17/2018. PLAN: The patient is making gradual improvement. He seems more awake and talkative. He is making gradual improvement with physical therapy. We will continue the PT and OT. I have stopped his Adderall. He seems to be doing fine without the Adderall. Job ID: [id number] [facility]
[2018-09-17] MEDS: risperiDONE 1 MG TAB PO SCH (20:34)
[2018-09-17] MEDS: Atorvastatin Calcium 10 MG TAB PO SCH (20:35)
[2018-09-17] MEDS: ZONISAMIDE PO SCH (20:45)
[2018-09-17] MEDS: DESMOPRESSIN ACETATE 0.2 MG PO SCH (21:55)
[2018-09-18] MEDS: Potassium Chloride 20 MEQ TAB PO SCH ×2 (08:42→17:51)
[2018-09-18] MEDS: Tamsulosin HCl 0.4 MG CAP PO SCH ×2 (08:43→20:15)
[2018-09-18] MEDS: Venlafaxine HCl XR 150 MG CAP PO SCH (08:43)
[2018-09-18] MEDS: Carbidopa/Levodopa CR 50-200 mg Tablet PO SCH ×3 (08:43→20:12)
[2018-09-18] MEDS: Carbidopa/Levodopa 25-250 mg Tablet PO SCH ×3 (08:43→20:12)
[2018-09-18] MEDS: VERAPAMIL HCL 180 MG PO SCH (08:44)
[2018-09-18] MEDS: Atorvastatin Calcium 10 MG TAB PO SCH (20:11)
[2018-09-18] MEDS: risperiDONE 1 MG TAB PO SCH (20:13)
[2018-09-18] MEDS: ZONISAMIDE PO SCH (20:14)
[2018-09-18] MEDS: DESMOPRESSIN ACETATE 0.2 MG PO SCH (20:14)
[2018-09-19] MEDS: Tamsulosin HCl 0.4 MG CAP PO SCH ×2 (09:03→21:01)
[2018-09-19] MEDS: Carbidopa/Levodopa CR 50-200 mg Tablet PO SCH ×3 (09:03→20:58)
[2018-09-19] MEDS: Potassium Chloride 20 MEQ TAB PO SCH ×2 (09:03→16:49)
[2018-09-19] MEDS: Venlafaxine HCl XR 150 MG CAP PO SCH (09:03)
[2018-09-19] MEDS: VERAPAMIL HCL 180 MG PO SCH (09:03)
[2018-09-19] MEDS: Carbidopa/Levodopa 25-250 mg Tablet PO SCH ×3 (09:03→20:58)
[2018-09-19] MEDS: Atorvastatin Calcium 10 MG TAB PO SCH (20:58)
[2018-09-19] MEDS: DESMOPRESSIN ACETATE 0.2 MG PO SCH (21:00)
[2018-09-19] MEDS: ZONISAMIDE PO SCH (21:01)
[2018-09-19] MEDS: risperiDONE 1 MG TAB PO SCH (21:01)
[2018-09-20 05:33] LABS: Anion Gap 14 mmol/L (10-20); BUN (Urea Nitrogen) 11 mg/dL (8.4-25.7); Calc. Creatinine Clearance 100 mL/min (70-130); Calcium 9.1 mg/dL (7.8-10.44); Carbon Dioxide 24 mmol/L (23-31); Chloride 104 mmol/L (98-107); Estimated GFR-MDRD Greater than 90; Glucose 90 mg/dL (83-110); Potassium 3.9 mmol/L (3.5-5.1); Sodium 138 mmol/L (136-145)
[2018-09-20 05:51] LABS: Eosinophils 4 % (0-10); Hemoglobin 13.4 g/dL (14.0-18.0); Lymphocytes 17 % (21-51); MDiff Complete? YES; Mean Corpuscular HGB CONC 34.1 g/dL (32.0-36.0); Mean Corpuscular Hemoglobin 32.7 pg (27.0-31.0); Mean Corpuscular Volume 95.7 fL (78.0-98.0); Mean Platelet Volume 6.4 fL (7.4-10.4); Monocytes 7 % (0-10); Neutrophil 68 % (42-75); Platelet Count 234 thou/uL (130-400); Platelet Morphology Comment Appears Adequate; RBC Distribution Width 11.9 % (11.5-14.5); RBC Morphology Normal; Reactive Lymphocytes 4 % (0-10); Red Blood Cell (RBC) Count 4.11 mill/uL (4.70-6.10); White Blood Cell (WBC) Count 6.9 thou/uL (4.8-10.8)
--- NOTE | 2018-09-20 08:24 | PRG ---
DATE OF SERVICE: 09/18/2018 SUBJECTIVE: The patient is sitting up at the bedside chair. He was resting, but he, when spoken to, opened his eyes and slowly would answer questions appropriately. He recognized me. He had no complaints. OBJECTIVE: GENERAL: The patient is sitting in a chair. He is alert, looks comfortable. His movements are very slow, as is his speech. He appears in no distress. VITAL SIGNS: Show a temperature of 98.2, pulse 95, respirations 18, O2 saturations 92% on room air, and blood pressure 132/63. LUNGS: Clear. The patient has occasional cough. HEART: Regular rate. EXTREMITIES: No edema. ASSESSMENT: 1. Urinary tract infection. a. Presenting with altered mental status, dehydration, increased weakness, and falls. b. Urine culture grew Proteus mirabilis, colony count 50,000 to 75,000 with organisms sensitive to ceftriaxone and Levaquin. Blood cultures, no growth. c. Resolved, has completed 9 days of antibiotics between the initial IV Rocephin and the oral Levaquin as of 09/18/2018. 2. Dehydration. a. Resolved. 3. Altered mental status. a. Secondary to urinary tract infection and dehydration. b. Resolved. Back to his mental status baseline. c. Remains at his normal mental status as of 09/17/2018. 4. Marked increased weakness. a. Complicated by frequent falls. b. Improved, working with Physical Therapy, walking further with a rolling walker and standby assistance. Still requiring moderate assistance with transfers as of 09/18/2018. 5. Advanced Parkinson disease. a. Complicated by dysphagia, gait abnormality, weakness, and increased falls. b. Requires assistance with ADLs. c. Complicated by Parkinson's dementia. 6. Hypertension. 7. Depression. 8. Cigarette abuse. 9. History of pulmonary granuloma. 10. Dysphagia. a. Modified barium swallow showed penetration aspiration with thin liquids, delayed swallowing with spillage into the vallecula and pyriform sinuses. Study done on 09/10. b. Requires a pureed diet with nectar-thickened liquids, which he is tolerating well as of 09/18/2018. PLAN: Continue present pureed diet with nectar-thickened liquids. Continue PT and OT. Job ID: [id number] [facility]
[2018-09-20] MEDS: Carbidopa/Levodopa CR 50-200 mg Tablet PO SCH ×3 (08:27→22:05)
[2018-09-20] MEDS: Potassium Chloride 20 MEQ TAB PO SCH ×2 (08:27→17:14)
[2018-09-20] MEDS: Tamsulosin HCl 0.4 MG CAP PO SCH ×2 (08:27→22:05)
[2018-09-20] MEDS: Venlafaxine HCl XR 150 MG CAP PO SCH (08:27)
[2018-09-20] MEDS: Carbidopa/Levodopa 25-250 mg Tablet PO SCH ×3 (08:27→22:05)
[2018-09-20] MEDS: VERAPAMIL HCL 180 MG PO SCH (08:28)
[2018-09-20] MEDS: Dextroamphetamine/Amphetamine [Adderall] PO SCH (08:39)
--- NOTE | 2018-09-20 14:08 | PRG ---
DATE OF SERVICE: 09/20/2018 SUBJECTIVE: The patient is doing better today. Yesterday morning, he just would not wake up. He did not appear in any distress and his vital signs were stable. He has been off the Adderall for several days and his thought that this may be from the withdrawal of the Adderall. This was restarted. This morning, he is up and with help, was able to transfer and then he has walked around to the Physical Therapy room. He is working on the [employer]. He is talking this morning, although his responses are slow. OBJECTIVE: GENERAL: The patient is sitting on the NuStep, working. He appears in no distress. VITAL SIGNS: Shows a temperature 98, pulse 76, respirations 18, O2 saturation 92 % on room air, blood pressure 126/63. LUNGS: Clear. HEART: Regular rate. LABORATORY DATA: His lab shows an H and H of 13.4 and 39.4, white cell count 6900 with 68% segs, 17% lymphocytes, and platelet count of 234,000. Sodium 138, potassium 3.9, BUN 11, creatinine 0.66, GFR greater than 90, and glucose 90. ASSESSMENT: 1. Urinary tract infection. a. Presenting with altered mental status, dehydration, increased weakness, and falls. b. Urine culture grew Proteus mirabilis, colony count 50,000 to 75,000 with organisms sensitive to ceftriaxone and Levaquin. Blood cultures, no growth. c. Resolved, has completed 9 days of antibiotics between the initial IV Rocephin and the oral Levaquin as of 09/16/2018. 2. Dehydration. a. Resolved. 3. Altered mental status. a. Secondary to urinary tract infection and dehydration. b. Resolved. Back to his mental status baseline. c. Remains at his normal mental status as of 09/20/2018. 4. Marked increased weakness. a. Complicated by frequent falls. b. Improved, working with Physical Therapy, walking further with a rolling walker and standby assistance. Still requiring moderate assistance with transfers as of 09/20/2018. 5. Advanced Parkinson disease. a. Complicated by dysphagia, gait abnormality, weakness, and increased falls. b. Requires assistance with ADLs. c. Complicated by Parkinson's dementia. 6. Hypertension. 7. Depression. 8. Cigarette abuse. 9. History of pulmonary granuloma. 10. Dysphagia. a. Modified barium swallow showed penetration aspiration with thin liquids, delayed swallowing with spillage into the vallecula and pyriform sinuses. Study done on 09/10. b. Requires a pureed diet with nectar-thickened liquids, which he is tolerating well as of 09/20/2018. PLAN: The patient looks better today. His strength is slowly improving. Still requires standby assistance when he is walking and still moderate assistance with any transfers. The lethargy yesterday was thought to be related to his withdrawal of the Adderall. I have restarted this. This morning, he looks like he is doing just fine. We will continue the Adderall at just 10 mg. Continue PT and OT. Job ID: [id number] [facility]
[2018-09-20] MEDS: risperiDONE 1 MG TAB PO SCH (22:04)
[2018-09-20] MEDS: Atorvastatin Calcium 10 MG TAB PO SCH (22:04)
[2018-09-20] MEDS: Melatonin 3 MG TAB PO PRN ×2 (22:05→22:09)
[2018-09-20] MEDS: ZONISAMIDE PO SCH (22:06)
[2018-09-20] MEDS: DESMOPRESSIN ACETATE 0.2 MG PO SCH (22:06)
[2018-09-21] MEDS: Venlafaxine HCl XR 150 MG CAP PO SCH (08:42)
[2018-09-21] MEDS: Potassium Chloride 20 MEQ TAB PO SCH ×2 (08:42→17:12)
[2018-09-21] MEDS: Carbidopa/Levodopa CR 50-200 mg Tablet PO SCH ×3 (08:42→20:25)
[2018-09-21] MEDS: Tamsulosin HCl 0.4 MG CAP PO SCH ×2 (08:42→20:26)
[2018-09-21] MEDS: VERAPAMIL HCL 180 MG PO SCH (08:43)
[2018-09-21] MEDS: Carbidopa/Levodopa 25-250 mg Tablet PO SCH ×3 (08:43→20:25)
[2018-09-21] MEDS: Dextroamphetamine/Amphetamine [Adderall] PO SCH (08:43)
--- NOTE | 2018-09-21 11:05 | PRG ---
DATE OF SERVICE: 09/21/2018 SUBJECTIVE: The patient says he feels better today. The patient has already been up with physical therapy. Therapist said that he still requires moderate to maximum assist with any transfer. Once he is up, he does pretty good walking. He is walking with a kind of a stooped gait using his walker and has small steps. He works out well on the NuStep, which works his arms and legs. OBJECTIVE: GENERAL: The patient is alert, is talking some to me this morning, recognizes me, is sitting on the NuStep, working his arms and legs, and appears in no distress. VITAL SIGNS: Temperature 97.9, pulse 78, respirations 16, O2 saturation 96% on room air, and blood pressure 160/84. LUNGS: Clear. HEART: Regular rate. EXTREMITIES: No edema. ASSESSMENT: 1. Urinary tract infection. a. Presenting with altered mental status, dehydration, increased weakness, and falls. b. Urine culture grew Proteus mirabilis, colony count 50,000 to 75,000 with organisms sensitive to ceftriaxone and Levaquin. Blood cultures, no growth. c. Resolved, has completed 9 days of antibiotics between the initial IV Rocephin and the oral Levaquin as of 09/16/2018. 2. Dehydration. a. Resolved. 3. Altered mental status. a. Secondary to urinary tract infection and dehydration. b. Resolved. Back to his mental status baseline. c. Remains at his normal mental status as of 09/21/2018. 4. Marked increased weakness. a. Complicated by frequent falls. b. Improved. Walking further with a rolling walker and with a gait belt standby assistance. Still requiring moderate to max assist with transfers as of 09/21/2018. 5. Advanced Parkinson disease. a. Complicated by dysphagia, gait abnormality, weakness, and increased falls. b. Requires assistance with ADLs. c. Complicated by Parkinson's dementia. 6. Hypertension. 7. Depression. 8. Cigarette abuse. 9. History of pulmonary granuloma. 10. Dysphagia. a. Modified barium swallow showed penetration aspiration with thin liquids, delayed swallowing with spillage into the vallecula and pyriform sinuses. Study done on 09/10. b. Requires a pureed diet with nectar-thickened liquids, which he is tolerating well as of 09/21/2018. PLAN: The patient's strength is improving, but still requires moderate to max assist with any transfer, still requires standby assistance with his walking, and still remains a fall risk. He has not had the prolonged morning sleepiness since restarting the Adderall. Continue present care. Job ID: [id number] [facility]
[2018-09-21] MEDS: Atorvastatin Calcium 10 MG TAB PO SCH (20:24)
[2018-09-21] MEDS: risperiDONE 1 MG TAB PO SCH (20:25)
[2018-09-21] MEDS: Melatonin 3 MG TAB PO PRN (20:25)
[2018-09-21] MEDS: Acetaminophen 325 MG TAB PO PRN (20:26)
[2018-09-21] MEDS: ZONISAMIDE PO SCH (20:34)
[2018-09-21] MEDS: DESMOPRESSIN ACETATE 0.2 MG PO SCH (20:34)
[2018-09-22] MEDS: Carbidopa/Levodopa CR 50-200 mg Tablet PO SCH ×3 (08:48→20:03)
[2018-09-22] MEDS: Potassium Chloride 20 MEQ TAB PO SCH ×2 (08:48→16:58)
[2018-09-22] MEDS: Carbidopa/Levodopa 25-250 mg Tablet PO SCH ×3 (08:48→20:03)
[2018-09-22] MEDS: Dextroamphetamine/Amphetamine [Adderall] PO SCH (08:50)
[2018-09-22] MEDS: VERAPAMIL HCL 180 MG PO SCH (08:51)
[2018-09-22] MEDS: Venlafaxine HCl XR 150 MG CAP PO SCH (08:51)
[2018-09-22] MEDS: Tamsulosin HCl 0.4 MG CAP PO SCH ×2 (08:51→20:04)
--- NOTE | 2018-09-22 13:45 | PRG ---
DATE OF SERVICE: 09/22/2018 SUBJECTIVE: The patient had no complaint. This morning he said, he slept good. Sofia, the therapist said that he needed a little bit more assistance getting up this morning and did not exercise as long on the NuStep as he usually and thinks he may have been just a little tired. OBJECTIVE: GENERAL: The patient is now sitting in a chair back in his room, preparing to have breakfast. He is alert, but very slow in movement and also speech comes very slowly. VITAL SIGNS: Shows temperature of 97.9, pulse 96, respirations 18, O2 saturation 94% on room air, blood pressure 142/63. LUNGS: Clear. HEART: Regular rate. EXTREMITIES: No edema. ASSESSMENT: 1. Urinary tract infection. a. Presenting with altered mental status, dehydration, increased weakness, and falls. b. Urine culture grew Proteus mirabilis, colony count 50,000 to 75,000 with organisms sensitive to ceftriaxone and Levaquin. Blood cultures, no growth. c. Resolved, has completed 9 days of antibiotics between the initial IV Rocephin and the oral Levaquin as of 09/16/2018. 2. Dehydration. a. Resolved. 3. Altered mental status. a. Secondary to urinary tract infection and dehydration. b. Resolved. Back to his mental status baseline. c. Remains at his normal mental status as of 09/21/2018. 4. Marked increased weakness. a. Complicated by frequent falls. b. Improved. Walking further with a rolling walker and with a gait belt standby assistance. Still requiring moderate to max assist with transfers as of 09/22/2018. 5. Advanced Parkinson disease. a. Complicated by dysphagia, gait abnormality, weakness, and increased falls. b. Requires assistance with ADLs. c. Complicated by Parkinson's dementia. 6. Hypertension. 7. Depression. 8. Cigarette abuse. 9. History of pulmonary granuloma. 10. Dysphagia. a. Modified barium swallow showed penetration aspiration with thin liquids, delayed swallowing with spillage into the vallecula and pyriform sinuses. Study done on 09/10. b. Requires a pureed diet with nectar-thickened liquids, which he is tolerating well as of 09/22/2018. PLAN: Continue present care. Continue PT/OT. Since the patient has been back on the Adderall, he is not having the prolonged periods of sleep in the mornings, and little easier to arouse. Job ID: [id number] [facility]
[2018-09-22] MEDS: risperiDONE 1 MG TAB PO SCH (20:03)
[2018-09-22] MEDS: Atorvastatin Calcium 10 MG TAB PO SCH (20:03)
[2018-09-22] MEDS: ZONISAMIDE PO SCH (20:04)
[2018-09-22] MEDS: DESMOPRESSIN ACETATE 0.2 MG PO SCH (20:05)
[2018-09-23] MEDS: Tamsulosin HCl 0.4 MG CAP PO SCH ×2 (09:10→20:08)
[2018-09-23] MEDS: Carbidopa/Levodopa CR 50-200 mg Tablet PO SCH ×3 (09:10→20:08)
[2018-09-23] MEDS: Potassium Chloride 20 MEQ TAB PO SCH ×2 (09:10→17:27)
[2018-09-23] MEDS: Venlafaxine HCl XR 150 MG CAP PO SCH (09:10)
[2018-09-23] MEDS: Carbidopa/Levodopa 25-250 mg Tablet PO SCH ×3 (09:11→20:07)
[2018-09-23] MEDS: Dextroamphetamine/Amphetamine [Adderall] PO SCH (09:33)
[2018-09-23] MEDS: VERAPAMIL HCL 180 MG PO SCH (09:33)
--- NOTE | 2018-09-23 09:39 | PRG ---
DATE OF SERVICE: 09/23/2018 SUBJECTIVE: The patient is up walking in the hallway with physical therapy using his walker. Still requires moderate assistance on any transfers. He does well with walking, but has to have a gait belt on, uses rolling walker and has standby assistance. This morning, he is standing there, he is fooling with his shirt and his gait belt. When spoken to, he speaks back to me and said he is okay. OBJECTIVE: VITAL SIGNS: Show a temperature of 97.9, pulse 93, respirations 18, O2 saturation 95% on room air, and blood pressure 136/70. LUNGS: Clear. HEART: Regular rate. NEUROLOGIC: The patient is alert, will answer questions, but does so slowly. His movements are very slow and stiff from his Parkinson's. ASSESSMENT: 1. Urinary tract infection. a. Presenting with altered mental status, dehydration, increased weakness, and falls. b. Urine culture grew Proteus mirabilis, colony count 50,000 to 75,000 with organisms sensitive to ceftriaxone and Levaquin. Blood cultures, no growth. c. Resolved, has completed 9 days of antibiotics between the initial IV Rocephin and the oral Levaquin as of 09/16/2018. 2. Dehydration. a. Resolved. 3. Altered mental status. a. Secondary to urinary tract infection and dehydration. b. Resolved. Back to his mental status baseline. c. Remains at his normal mental status as of 09/23/2018. 4. Marked increased weakness. a. Complicated by frequent falls. b. Improved. Walking further with a rolling walker and with a gait belt standby assistance. Still requiring moderate to max assist with transfers as of 09/23/2018. 5. Advanced Parkinson disease. a. Complicated by dysphagia, gait abnormality, weakness, and increased falls. b. Requires assistance with ADLs. c. Complicated by Parkinson's dementia. 6. Hypertension. 7. Depression. 8. Cigarette abuse. 9. History of pulmonary granuloma. 10. Dysphagia. a. Modified barium swallow showed penetration aspiration with thin liquids, delayed swallowing with spillage into the vallecula and pyriform sinuses. Study done on 09/10. b. Requires a pureed diet with nectar-thickened liquids, which he is tolerating well as of 09/23/2018. PLAN: Continue present care. Continue PT/OT. Job ID: [id number] [facility]
[2018-09-23] MEDS: Melatonin 3 MG TAB PO PRN (20:07)
[2018-09-23] MEDS: Atorvastatin Calcium 10 MG TAB PO SCH (20:07)
[2018-09-23] MEDS: risperiDONE 1 MG TAB PO SCH (20:07)
[2018-09-23] MEDS: DESMOPRESSIN ACETATE 0.2 MG PO SCH (20:09)
[2018-09-23] MEDS: ZONISAMIDE PO SCH (20:09)
[2018-09-24] MEDS: Potassium Chloride 20 MEQ TAB PO SCH ×2 (08:41→17:08)
[2018-09-24] MEDS: Tamsulosin HCl 0.4 MG CAP PO SCH ×2 (08:42→22:42)
[2018-09-24] MEDS: Carbidopa/Levodopa 25-250 mg Tablet PO SCH ×3 (08:42→22:39)
[2018-09-24] MEDS: Carbidopa/Levodopa CR 50-200 mg Tablet PO SCH ×3 (08:42→22:38)
[2018-09-24] MEDS: Venlafaxine HCl XR 150 MG CAP PO SCH (08:42)
[2018-09-24] MEDS: VERAPAMIL HCL 180 MG PO SCH (08:43)
[2018-09-24] MEDS: DEXTROAMPHETAMINE PO SCH (08:52)
[2018-09-24] MEDS: AMPHETAMINE PO SCH (08:52)
--- NOTE | 2018-09-24 11:53 | PRG ---
DATE OF SERVICE: 09/24/2018 SUBJECTIVE: The patient said he is doing good today. He is up, eating his breakfast. He is feeding himself. Does this very slowly and does spill some on his chest in the process of feeding himself. He has already been for physical therapy. He is working with Physical Therapy. He is walking up to 200 feet now twice today with a rolling walker with a gait belt and standby assistance, but he only requires minimal assistance. He is still requiring maximum assistance with transfers from sitting to standing position or supine to sitting position. He needs less help going from bed to a chair or standing to a sitting position. OBJECTIVE: GENERAL: The patient is sitting up in a chair. He is alert, talkative. His speech shows very slow and little slow on answering. VITAL SIGNS: Show a temperature of 98.2, pulse 85, respirations 16, O2 saturation 95%, blood pressure 136/65. LUNGS: Clear. HEART: Regular rate. EXTREMITIES: No edema. ASSESSMENT: 1. Urinary tract infection. a. Presenting with altered mental status, dehydration, increased weakness, and falls. b. Urine culture grew Proteus mirabilis, colony count 50,000 to 75,000 with organisms sensitive to ceftriaxone and Levaquin. Blood cultures, no growth. c. Resolved, has completed 9 days of antibiotics between the initial IV Rocephin and the oral Levaquin as of 09/16/2018. 2. Dehydration. a. Resolved. 3. Altered mental status. a. Secondary to urinary tract infection and dehydration. b. Resolved. Back to his mental status baseline. c. Remains at his normal mental status as of 09/24/2018. 4. Marked increased weakness. a. Complicated by frequent falls. b. Improved. Walking up to 200 feet with rolling walker with a gait belt and standby assistance and usually once up walking, just requires minimal assistance. Still requires for certain transfers maximum assistance as of 09/24/2018. 5. Advanced Parkinson disease. a. Complicated by dysphagia, gait abnormality, weakness, and increased falls. b. Requires assistance with ADLs. c. Complicated by Parkinson's dementia. 6. Hypertension. 7. Depression. 8. Cigarette abuse. 9. History of pulmonary granuloma. 10. Dysphagia. a. Modified barium swallow showed penetration aspiration with thin liquids, delayed swallowing with spillage into the vallecula and pyriform sinuses. Study done on 09/10. b. Requires a pureed diet with nectar-thickened liquids, which he is tolerating well as of 09/24/2018. PLAN: The patient's strength is better. The Parkinson's certainly limits his ability, but he has made improvement. Needs continued PT and OT for like at least another week and then reassess how he is doing before considering going home. Job ID: [id number] [facility]
[2018-09-24] MEDS: Atorvastatin Calcium 10 MG TAB PO SCH (22:38)
[2018-09-24] MEDS: DESMOPRESSIN ACETATE 0.2 MG PO SCH (22:39)
[2018-09-24] MEDS: ZONISAMIDE PO SCH (22:41)
[2018-09-24] MEDS: risperiDONE 1 MG TAB PO SCH (22:41)
[2018-09-24] MEDS: Melatonin 3 MG TAB PO PRN (22:42)
[2018-09-25] MEDS: Potassium Chloride 20 MEQ TAB PO SCH ×2 (08:28→17:05)
[2018-09-25] MEDS: Carbidopa/Levodopa CR 50-200 mg Tablet PO SCH ×3 (08:29→19:39)
[2018-09-25] MEDS: Carbidopa/Levodopa 25-250 mg Tablet PO SCH ×3 (08:29→19:39)
[2018-09-25] MEDS: Tamsulosin HCl 0.4 MG CAP PO SCH ×2 (08:30→19:38)
[2018-09-25] MEDS: VERAPAMIL HCL 180 MG PO SCH (08:30)
[2018-09-25] MEDS: Venlafaxine HCl XR 150 MG CAP PO SCH (08:30)
[2018-09-25] MEDS: AMPHETAMINE PO SCH (08:41)
[2018-09-25] MEDS: DEXTROAMPHETAMINE PO SCH (08:41)
[2018-09-25 12:33] VITALS: BMI 21.7
[2018-09-25] MEDS: risperiDONE 1 MG TAB PO SCH (19:37)
[2018-09-25] MEDS: Atorvastatin Calcium 10 MG TAB PO SCH (19:38)
[2018-09-25] MEDS: Melatonin 3 MG TAB PO PRN (19:39)
[2018-09-25] MEDS: DESMOPRESSIN ACETATE 0.2 MG PO SCH (19:44)
[2018-09-25] MEDS: ZONISAMIDE PO SCH (19:45)
[2018-09-26] MEDS: Tamsulosin HCl 0.4 MG CAP PO SCH ×2 (08:48→20:02)
[2018-09-26] MEDS: Venlafaxine HCl XR 150 MG CAP PO SCH (08:48)
[2018-09-26] MEDS: Carbidopa/Levodopa 25-250 mg Tablet PO SCH ×3 (08:48→20:03)
[2018-09-26] MEDS: DEXTROAMPHETAMINE PO SCH (08:49)
[2018-09-26] MEDS: Carbidopa/Levodopa CR 50-200 mg Tablet PO SCH ×3 (08:49→20:02)
[2018-09-26] MEDS: AMPHETAMINE PO SCH (08:49)
[2018-09-26] MEDS: Potassium Chloride 20 MEQ TAB PO SCH ×2 (08:49→17:29)
[2018-09-26] MEDS: VERAPAMIL HCL 180 MG PO SCH (08:50)
[2018-09-26] MEDS: Acetaminophen 325 MG TAB PO PRN (20:01)
[2018-09-26] MEDS: risperiDONE 1 MG TAB PO SCH (20:01)
[2018-09-26] MEDS: Atorvastatin Calcium 10 MG TAB PO SCH (20:08)
[2018-09-26] MEDS: DESMOPRESSIN ACETATE 0.2 MG PO SCH (20:08)
[2018-09-26] MEDS: ZONISAMIDE PO SCH (20:09)
--- NOTE | 2018-09-27 08:05 | PRG ---
DATE OF SERVICE: 09/25/2018 SUBJECTIVE: The patient is still in bed this morning. He has not yet eaten his breakfast. He is awake, but very slow to answer questions, which is a typical Tim. He does not appear in any distress. OBJECTIVE: VITAL SIGNS: Show a temperature 97.1, pulse 80, respirations 18, O2 saturations 95%, and blood pressure 111/58. LUNGS: Clear. HEART: Regular rate. ASSESSMENT: 1. Urinary tract infection. a. Presenting with altered mental status, dehydration, increased weakness, and falls. b. Urine culture grew Proteus mirabilis, colony count 50,000 to 75,000 with organisms sensitive to ceftriaxone and Levaquin. Blood cultures, no growth. c. Resolved, has completed 9 days of antibiotics between the initial IV Rocephin and the oral Levaquin as of 09/16/2018. 2. Dehydration. a. Resolved. 3. Altered mental status. a. Secondary to urinary tract infection and dehydration. b. Resolved. Back to his mental status baseline. c. Remains at his normal mental status as of 09/25/2018. 4. Marked increased weakness. a. Complicated by frequent falls. b. Improved. Walking up to 200 feet with a rolling walker and gait belt and standby assistance. Still requires moderate to maximum assistance with any transfers as of 09/25/2018. c. Remains at fall risk as of 09/25/2018. 5. Advanced Parkinson disease. a. Complicated by dysphagia, gait abnormality, weakness, and increased falls. b. Requires assistance with ADLs. c. Complicated by Parkinson's dementia. 6. Hypertension. 7. Depression. 8. Cigarette abuse. 9. History of pulmonary granuloma. 10. Dysphagia. a. Modified barium swallow showed penetration aspiration with thin liquids, delayed swallowing with spillage into the vallecula and pyriform sinuses. Study done on 09/10. b. Requires a pureed diet with nectar-thickened liquids, which he is tolerating well as of 09/25/2018. PLAN: Continue present care. Continue PT and OT. Once the patient discharged, he will still need assistance with all his ADLs and probably standby assistance with his walking and help with any transfers. Job ID: [id number] [facility]
[2018-09-27] MEDS: AMPHETAMINE PO SCH (08:33)
[2018-09-27] MEDS: Tamsulosin HCl 0.4 MG CAP PO SCH ×2 (08:33→20:04)
[2018-09-27] MEDS: DEXTROAMPHETAMINE PO SCH (08:33)
[2018-09-27] MEDS: Potassium Chloride 20 MEQ TAB PO SCH ×2 (08:34→16:38)
[2018-09-27] MEDS: Venlafaxine HCl XR 150 MG CAP PO SCH (08:34)
[2018-09-27] MEDS: VERAPAMIL HCL 180 MG PO SCH (08:34)
[2018-09-27] MEDS: Carbidopa/Levodopa 25-250 mg Tablet PO SCH ×3 (08:34→20:05)
[2018-09-27] MEDS: Carbidopa/Levodopa CR 50-200 mg Tablet PO SCH ×3 (08:34→20:07)
--- NOTE | 2018-09-27 09:42 | PRG ---
DATE OF SERVICE: 09/27/2018 SUBJECTIVE: The patient has already been up in to physical therapy. Therapist said he transferred a little bit easier, but still needs moderate help. He walks better. His brought up here his Parkinson's walker, which he used and does well with that. Once he is up on his feet, he does pretty well with the walking, but still needs standby assistance. OBJECTIVE: GENERAL: The patient is sitting up in his chair. He is smiling. He looks better. He is a little more engaged in talking than he has been. VITAL SIGNS: Temperature 98.9, pulse 84, respirations 16, O2 saturation 95% on room air, and blood pressure 138/67. LUNGS: Clear. HEART: Regular rate. EXTREMITIES: No edema. ASSESSMENT: 1. Urinary tract infection. a. Presenting with altered mental status, dehydration, increased weakness, and falls. b. Urine culture grew Proteus mirabilis, colony count 50,000 to 75,000 with organisms sensitive to ceftriaxone and Levaquin. Blood cultures, no growth. c. Resolved, has completed 9 days of antibiotics between the initial IV Rocephin and the oral Levaquin as of 09/16/2018. 2. Dehydration. a. Resolved. 3. Altered mental status. a. Secondary to urinary tract infection and dehydration. b. Resolved. Back to his mental status baseline. c. Remains at his normal mental status as of 09/27/2018. 4. Marked increased weakness. a. Complicated by frequent falls. b. Improved, walking up to 200 feet, using his Parkinson's walker. Still has a gait belt. Still requires standby assistance. Still requires help with transfers. 5. Advanced Parkinson disease. a. Complicated by dysphagia, gait abnormality, weakness, and increased falls. b. Requires assistance with ADLs. c. Complicated by Parkinson's dementia. d. Stable as of 09/27. 6. Hypertension. 7. Depression. 8. Cigarette abuse. 9. History of pulmonary granuloma. 10. Dysphagia. a. Modified barium swallow showed penetration aspiration with thin liquids, delayed swallowing with spillage into the vallecula and pyriform sinuses. Study done on 09/10. b. Requires a pureed diet with nectar-thickened liquids, which he is tolerating well as of 09/27/2018. PLAN: Continue present care. Continue PT/OT. Now has his Parkinson's walker up here, which will assist him with his ambulation. Job ID: [id number] [facility]
[2018-09-27] MEDS: Acetaminophen 325 MG TAB PO PRN (19:06)
[2018-09-27] MEDS: Atorvastatin Calcium 10 MG TAB PO SCH (20:03)
[2018-09-27] MEDS: risperiDONE 1 MG TAB PO SCH (20:05)
[2018-09-27] MEDS: ZONISAMIDE PO SCH (20:09)
[2018-09-27] MEDS: DESMOPRESSIN ACETATE 0.2 MG PO SCH (20:10)
[2018-09-28] MEDS: VERAPAMIL HCL 180 MG PO SCH (08:23)
[2018-09-28] MEDS: AMPHETAMINE PO SCH (08:24)
[2018-09-28] MEDS: Potassium Chloride 20 MEQ TAB PO SCH ×2 (08:24→17:09)
[2018-09-28] MEDS: Tamsulosin HCl 0.4 MG CAP PO SCH ×2 (08:24→20:05)
[2018-09-28] MEDS: DEXTROAMPHETAMINE PO SCH (08:24)
[2018-09-28] MEDS: Carbidopa/Levodopa CR 50-200 mg Tablet PO SCH ×3 (08:25→20:05)
[2018-09-28] MEDS: Carbidopa/Levodopa 25-250 mg Tablet PO SCH ×3 (08:25→20:05)
[2018-09-28] MEDS: Venlafaxine HCl XR 150 MG CAP PO SCH (08:25)
--- NOTE | 2018-09-28 11:25 | PRG ---
DATE OF SERVICE: 09/28/2018 SUBJECTIVE: The patient has not gotten up out of the bed yet. He is awake and answers questions appropriately, but just slow to respond. OBJECTIVE: GENERAL: The patient is lying in bed, looks very comfortable, is awake. VITAL SIGNS: Show temperature 98.2, pulse 76, respirations 20, O2 saturations 92 % on room air, and blood pressure 130/66. LUNGS: Clear. HEART: Regular rate. EXTREMITIES: No edema. ASSESSMENT: 1. Urinary tract infection. a. Presenting with altered mental status, dehydration, increased weakness, and falls. b. Urine culture grew Proteus mirabilis, colony count 50,000 to 75,000 with organisms sensitive to ceftriaxone and Levaquin. Blood cultures, no growth. c. Resolved, has completed 9 days of antibiotics between the initial IV Rocephin and the oral Levaquin as of 09/16/2018. 2. Dehydration. a. Resolved. 3. Altered mental status. a. Secondary to urinary tract infection and dehydration. b. Resolved. Back to his mental status baseline. c. Remains at his normal mental status as of 09/28/2018. 4. Marked increased weakness. a. Complicated by frequent falls. b. Improved, walking up to 200 feet, using his Parkinson's walker. Still has a gait belt. Still requires standby assistance. Still requires help with transfers as of 09/28/2018. 5. Advanced Parkinson disease. a. Complicated by dysphagia, gait abnormality, weakness, and increased falls. b. Requires assistance with ADLs. c. Complicated by Parkinson's dementia. d. Stable as of 09/28/2018. 6. Hypertension. 7. Depression. 8. Cigarette abuse. 9. History of pulmonary granuloma. 10. Dysphagia. a. Modified barium swallow showed penetration aspiration with thin liquids, delayed swallowing with spillage into the vallecula and pyriform sinuses. Study done on 09/10. b. Requires a pureed diet with nectar-thickened liquids, which he is tolerating well as of 09/28/2018. PLAN: Continue present care. Continue PT, OT. Job ID: [id number] [facility]
[2018-09-28] MEDS: Atorvastatin Calcium 10 MG TAB PO SCH (20:03)
[2018-09-28] MEDS: risperiDONE 1 MG TAB PO SCH (20:03)
[2018-09-28] MEDS: ZONISAMIDE PO SCH (20:04)
[2018-09-28] MEDS: Melatonin 3 MG TAB PO PRN (20:05)
[2018-09-28] MEDS: DESMOPRESSIN ACETATE 0.2 MG PO SCH (20:05)
[2018-09-29] MEDS: Tamsulosin HCl 0.4 MG CAP PO SCH ×2 (08:58→20:01)
[2018-09-29] MEDS: Potassium Chloride 20 MEQ TAB PO SCH ×2 (08:58→17:39)
[2018-09-29] MEDS: Carbidopa/Levodopa 25-250 mg Tablet PO SCH ×3 (08:58→20:00)
[2018-09-29] MEDS: Venlafaxine HCl XR 150 MG CAP PO SCH (08:58)
[2018-09-29] MEDS: Carbidopa/Levodopa CR 50-200 mg Tablet PO SCH ×3 (08:58→20:00)
[2018-09-29] MEDS: VERAPAMIL HCL 180 MG PO SCH (08:59)
[2018-09-29] MEDS: AMPHETAMINE PO SCH (09:03)
[2018-09-29] MEDS: DEXTROAMPHETAMINE PO SCH (09:03)
--- NOTE | 2018-09-29 09:23 | PRG ---
DATE OF SERVICE: 09/29/2018 SUBJECTIVE: I visited with the patient's , Mari, yesterday and she was happy with the improvement and improved strength Tim has exhibited. Initially, was considering discharge on Thursday, 10/01, but she asked that he stay here longer for continued physical therapy. Mari is the primary caregiver and it would help her a great deal, if he was stronger and able to do a little bit more. Also, she said that there was some steps that he has to go up to get into the home. A little more time here will allow therapy to work with him and also do some instructions on how to get up the steps. Tim is okay with this. OBJECTIVE: GENERAL: The patient is getting up out of bed, worked with physical therapy. He is alert, but slow to answer any question. VITAL SIGNS: His temperature is 98, pulse 75, respirations 18, O2 saturation 96 % on room air, blood pressure 130/60. LUNGS: Clear. HEART: Regular rate. ASSESSMENT: 1. Urinary tract infection. a. Presenting with altered mental status, dehydration, increased weakness, and falls. b. Urine culture grew Proteus mirabilis, colony count 50,000 to 75,000 with organisms sensitive to ceftriaxone and Levaquin. Blood cultures, no growth. c. Resolved, has completed 9 days of antibiotics between the initial IV Rocephin and the oral Levaquin as of 09/16/2018. 2. Dehydration. a. Resolved. 3. Altered mental status. a. Secondary to urinary tract infection and dehydration. b. Resolved. Back to his mental status baseline. c. Remains at his normal mental status as of 09/29/2018. 4. Marked increased weakness. a. Complicated by frequent falls. b. Improved, walking up to 200 feet, using his Parkinson's walker. Still has a gait belt. Still requires standby assistance. Still requires help with transfers. 5. Advanced Parkinson disease. a. Complicated by dysphagia, gait abnormality, weakness, and increased falls. b. Requires assistance with ADLs. c. Complicated by Parkinson's dementia. d. Stable as of 09/29/2018. 6. Hypertension. 7. Depression. 8. Cigarette abuse. 9. History of pulmonary granuloma. 10. Dysphagia. a. Modified barium swallow showed penetration aspiration with thin liquids, delayed swallowing with spillage into the vallecula and pyriform sinuses. Study done on 09/10. b. Requires a pureed diet with nectar-thickened liquids, which he is tolerating well as of 09/29/2018. PLAN: We will continue PT and OT. Asked them to visit with his about the steps that he has to get up to get into his home and will work to try to help make this a little easier task. We will delay any transfer until he has time for further therapy. He is improving and any further improvement will assist with his care in the home. Job ID: [id number] [facility]
[2018-09-29] MEDS: Atorvastatin Calcium 10 MG TAB PO SCH (19:59)
[2018-09-29] MEDS: risperiDONE 1 MG TAB PO SCH (20:01)
[2018-09-29] MEDS: DESMOPRESSIN ACETATE 0.2 MG PO SCH (20:01)
[2018-09-29] MEDS: ZONISAMIDE PO SCH (20:01)
[2018-09-29] MEDS: Melatonin 3 MG TAB PO PRN (20:01)
[2018-09-30] MEDS: DEXTROAMPHETAMINE PO SCH (08:20)
[2018-09-30] MEDS: AMPHETAMINE PO SCH (08:20)
[2018-09-30] MEDS: Tamsulosin HCl 0.4 MG CAP PO SCH ×2 (08:21→20:17)
[2018-09-30] MEDS: Venlafaxine HCl XR 150 MG CAP PO SCH (08:21)
[2018-09-30] MEDS: VERAPAMIL HCL 180 MG PO SCH (08:21)
[2018-09-30] MEDS: Potassium Chloride 20 MEQ TAB PO SCH ×2 (08:22→17:06)
[2018-09-30] MEDS: Carbidopa/Levodopa 25-250 mg Tablet PO SCH ×3 (08:22→20:16)
[2018-09-30] MEDS: Carbidopa/Levodopa CR 50-200 mg Tablet PO SCH ×3 (08:22→20:17)
--- NOTE | 2018-09-30 10:21 | PRG ---
DATE OF SERVICE: 09/30/2018 SUBJECTIVE: The patient says he is doing good today. Therapy is working with him. He requires a lot of assistance with transfer. Once he is standing, he has to have standby assistance. He has no ability to transfer himself and tends to want to fall backwards. Once he is leaning forward and has a hold of his walker, he does a little better. OBJECTIVE: GENERAL: The patient is alert, appears comfortable, in no distress. VITAL SIGNS: Temperature 97.2, pulse 80, respirations 16, O2 saturation 97% on room air, blood pressure 143/67. LUNGS: Clear. HEART: Regular rate. NEUROLOGIC: The patient is alert and will answer questions appropriately, but very slow to respond to the question and speech is slow. When standing, he tends to want to fall backwards, has to have someone to help and remind him to lean forward. He has no ability to transfer himself. His movements are very slow and stiff. ASSESSMENT: 1. Urinary tract infection. a. Presenting with altered mental status, dehydration, increased weakness, and falls. b. Urine culture grew Proteus mirabilis, colony count 50,000 to 75,000 with organisms sensitive to ceftriaxone and Levaquin. Blood cultures, no growth. c. Resolved, has completed 9 days of antibiotics between the initial IV Rocephin and the oral Levaquin as of 09/16/2018. 2. Dehydration. a. Resolved. 3. Altered mental status. a. Secondary to urinary tract infection and dehydration. b. Resolved. Back to his mental status baseline. c. Remains at his normal mental status as of 09/30/2018. 4. Marked increased weakness. a. Complicated by frequent falls. b. Improved, walking up to 200 feet using his Parkinson's walker. Still requires standby assistance, still requires moderate help with transfer and standby assistance due to his tendency to fall backwards as of 09/30/2018. 5. Advanced Parkinson disease. a. Complicated by dysphagia, gait abnormality, weakness, and increased falls. b. Requires assistance with ADLs. c. Complicated by Parkinson's dementia. d. Stable as of 09/29/2018. 6. Hypertension. 7. Depression. 8. Cigarette abuse. 9. History of pulmonary granuloma. 10. Dysphagia. a. Modified barium swallow showed penetration aspiration with thin liquids, delayed swallowing with spillage into the vallecula and pyriform sinuses. Study done on 09/10. b. Requires a pureed diet with nectar-thickened liquids, which he is tolerating well as of 09/30/2018. PLAN: Continue efforts with PT. Job ID: [id number] [facility]
[2018-09-30] MEDS: Atorvastatin Calcium 10 MG TAB PO SCH (20:16)
[2018-09-30] MEDS: DESMOPRESSIN ACETATE 0.2 MG PO SCH (20:17)
[2018-09-30] MEDS: ZONISAMIDE PO SCH (20:17)
[2018-09-30] MEDS: risperiDONE 1 MG TAB PO SCH (20:17)
[2018-09-30] MEDS: Melatonin 3 MG TAB PO PRN (20:18)
[2018-10-01] MEDS: Tamsulosin HCl 0.4 MG CAP PO SCH ×2 (08:39→20:04)
[2018-10-01] MEDS: Carbidopa/Levodopa CR 50-200 mg Tablet PO SCH ×3 (08:39→19:59)
[2018-10-01] MEDS: Carbidopa/Levodopa 25-250 mg Tablet PO SCH ×3 (08:39→19:59)
[2018-10-01] MEDS: Potassium Chloride 20 MEQ TAB PO SCH ×2 (08:39→17:14)
[2018-10-01] MEDS: Venlafaxine HCl XR 150 MG CAP PO SCH (08:39)
[2018-10-01] MEDS: VERAPAMIL HCL 180 MG PO SCH (08:40)
[2018-10-01] MEDS: DEXTROAMPHETAMINE PO SCH (08:41)
[2018-10-01] MEDS: AMPHETAMINE PO SCH (08:41)
--- NOTE | 2018-10-01 10:51 | PRG ---
DATE OF SERVICE: 10/01/2018 SUBJECTIVE: The patient had no complaint this morning. He is up in a wheelchair. He is alert, little more talkative than usual, appears in no distress. OBJECTIVE: VITAL SIGNS: Show a temperature of 97.5, pulse 72, respirations 16, O2 saturation 95% on room air, blood pressure 166/79, last evening was 148/70. LUNGS: Clear. HEART: Regular rate. EXTREMITIES: No edema. ASSESSMENT: 1. Urinary tract infection. a. Presenting with altered mental status, dehydration, increased weakness, and falls. b. Urine culture grew Proteus mirabilis, colony count 50,000 to 75,000 with organisms sensitive to ceftriaxone and Levaquin. Blood cultures, no growth. c. Resolved, has completed 9 days of antibiotics between the initial IV Rocephin and the oral Levaquin as of 09/16/2018. 2. Dehydration. a. Resolved. 3. Altered mental status. a. Secondary to urinary tract infection and dehydration. b. Resolved. Back to his mental status baseline. c. Remains at his normal mental status as of 10/01/2018. 4. Marked increased weakness. a. Complicated by frequent falls. b. Improved, walking up to 200 feet using his Parkinson's walker. Still requires standby assistance, still requires moderate help with transfer and standby assistance due to his tendency to fall backwards as of 09/30/2018. 5. Advanced Parkinson disease. a. Complicated by dysphagia, gait abnormality, weakness, and increased falls. b. Requires assistance with ADLs. c. Complicated by Parkinson's dementia. d. Stable as of 10/01/2018. 6. Hypertension. 7. Depression. 8. Cigarette abuse. 9. History of pulmonary granuloma. 10. Dysphagia. a. Modified barium swallow showed penetration aspiration with thin liquids, delayed swallowing with spillage into the vallecula and pyriform sinuses. Study done on 09/10. b. Requires a pureed diet with nectar-thickened liquids, which he is tolerating well as of 10/01/2018. PLAN: Continue PT and OT. Continue present medicines. Job ID: [id number] [facility]
[2018-10-01] MEDS: risperiDONE 1 MG TAB PO SCH (19:59)
[2018-10-01] MEDS: Atorvastatin Calcium 10 MG TAB PO SCH (19:59)
[2018-10-01] MEDS: ZONISAMIDE PO SCH (20:00)
[2018-10-01] MEDS: DESMOPRESSIN ACETATE 0.2 MG PO SCH (20:00)
[2018-10-02] MEDS: Venlafaxine HCl XR 150 MG CAP PO SCH (09:22)
[2018-10-02] MEDS: Tamsulosin HCl 0.4 MG CAP PO SCH ×2 (09:22→20:03)
[2018-10-02] MEDS: Carbidopa/Levodopa 25-250 mg Tablet PO SCH ×3 (09:22→20:03)
[2018-10-02] MEDS: Potassium Chloride 20 MEQ TAB PO SCH ×2 (09:22→17:18)
[2018-10-02] MEDS: Carbidopa/Levodopa CR 50-200 mg Tablet PO SCH ×3 (09:22→20:03)
[2018-10-02] MEDS: VERAPAMIL HCL 180 MG PO SCH (09:23)
[2018-10-02] MEDS: DEXTROAMPHETAMINE PO SCH (09:50)
[2018-10-02] MEDS: AMPHETAMINE PO SCH (09:50)
[2018-10-02] MEDS: ZONISAMIDE PO SCH (20:01)
[2018-10-02] MEDS: Atorvastatin Calcium 10 MG TAB PO SCH (20:02)
[2018-10-02] MEDS: DESMOPRESSIN ACETATE 0.2 MG PO SCH (20:02)
[2018-10-02] MEDS: risperiDONE 1 MG TAB PO SCH (20:03)
[2018-10-02] MEDS: Melatonin 3 MG TAB PO PRN (20:03)
[2018-10-03] MEDS: Carbidopa/Levodopa 25-250 mg Tablet PO SCH ×3 (09:03→20:04)
[2018-10-03] MEDS: Carbidopa/Levodopa CR 50-200 mg Tablet PO SCH ×3 (09:03→20:03)
[2018-10-03] MEDS: Venlafaxine HCl XR 150 MG CAP PO SCH (09:03)
[2018-10-03] MEDS: Potassium Chloride 20 MEQ TAB PO SCH ×2 (09:04→17:05)
[2018-10-03] MEDS: Tamsulosin HCl 0.4 MG CAP PO SCH ×2 (09:04→20:03)
[2018-10-03] MEDS: VERAPAMIL HCL 180 MG PO SCH (09:04)
[2018-10-03] MEDS: AMPHETAMINE PO SCH (09:15)
[2018-10-03] MEDS: DEXTROAMPHETAMINE PO SCH (09:15)
[2018-10-03] MEDS: DESMOPRESSIN ACETATE 0.2 MG PO SCH (20:02)
[2018-10-03] MEDS: ZONISAMIDE PO SCH (20:02)
[2018-10-03] MEDS: Atorvastatin Calcium 10 MG TAB PO SCH (20:03)
[2018-10-03] MEDS: risperiDONE 1 MG TAB PO SCH (20:03)
[2018-10-03] MEDS: Melatonin 3 MG TAB PO PRN (20:03)
[2018-10-04] MEDS: Venlafaxine HCl XR 150 MG CAP PO SCH (08:17)
[2018-10-04] MEDS: Carbidopa/Levodopa CR 50-200 mg Tablet PO SCH ×3 (08:17→20:52)
[2018-10-04] MEDS: Tamsulosin HCl 0.4 MG CAP PO SCH ×2 (08:17→21:08)
[2018-10-04] MEDS: Potassium Chloride 20 MEQ TAB PO SCH ×2 (08:17→16:58)
[2018-10-04] MEDS: Carbidopa/Levodopa 25-250 mg Tablet PO SCH ×3 (08:17→20:52)
[2018-10-04] MEDS: VERAPAMIL HCL 180 MG PO SCH (08:18)
--- NOTE | 2018-10-04 08:19 | PRG ---
DATE OF SERVICE: 10/02/2018 SUBJECTIVE: The patient is still in bed, but he is awake and he appears comfortable, in no distress. His aide is working to get him up out of bed and she is tickling his leg and sides, and he has enjoyed this and was laughing. OBJECTIVE: GENERAL: The patient is alert, looks very comfortable, in no distress. VITAL SIGNS: His temperature is 97.7, pulse 75, respirations 16, O2 saturations 92% on room air, and blood pressure 134/68. LUNGS: Clear. HEART: Regular rate. ASSESSMENT: 1. Urinary tract infection. a. Presenting with altered mental status, dehydration, increased weakness, and falls. b. Urine culture grew Proteus mirabilis, colony count 50,000 to 75,000 with organisms sensitive to ceftriaxone and Levaquin. Blood cultures, no growth. c. Resolved, has completed 9 days of antibiotics between the initial IV Rocephin and the oral Levaquin as of 09/16/2018. 2. Dehydration. a. Resolved. 3. Altered mental status. a. Secondary to urinary tract infection and dehydration. b. Resolved. Back to his mental status baseline. c. Remains at his normal mental status as of 10/02/2018. 4. Marked increased weakness. a. Complicated by frequent falls. b. Improved, walking up to 200 feet using his Parkinson's walker. Still requires standby assistance, still requires moderate help with transfer and standby assistance due to his tendency to fall backwards as of 10/02/2018. 5. Advanced Parkinson disease. a. Complicated by dysphagia, gait abnormality, weakness, and increased falls. b. Requires assistance with ADLs. c. Complicated by Parkinson's dementia. d. Stable as of 10/02/2018. 6. Hypertension. 7. Depression. 8. Cigarette abuse. 9. History of pulmonary granuloma. 10. Dysphagia. a. Modified barium swallow showed penetration aspiration with thin liquids, delayed swallowing with spillage into the vallecula and pyriform sinuses. Study done on 09/10. b. Requires a pureed diet with nectar-thickened liquids, which he is tolerating well as of 10/02/2018. PLAN: Continue present care. Continue PT and OT. Job ID: [id number] [facility]
[2018-10-04] MEDS: DEXTROAMPHETAMINE PO SCH (08:30)
[2018-10-04] MEDS: AMPHETAMINE PO SCH (08:30)
--- NOTE | 2018-10-04 12:25 | PRG ---
DATE OF SERVICE: 10/04/2018 SUBJECTIVE: Therapy has him up and they are working on his stair climb and they have been working on 3 steps. He does very poor with this. He requires lots of cueing and then he freezes in position from the Parkinson's. Eventually, he may get up to 3 steps, but was difficult. He is walking. He does fair with his Parkinson walker, but requires a gait belt and standby assistance. He still requires moderate assistance for any transfers. OBJECTIVE: GENERAL: The patient is standing. He is alert, appears comfortable, in no distress. His interactions today is not as usual, very slow to respond any talking. He does not appear in any distress. VITAL SIGNS: Temperature 99.4, pulse 95, respirations 18, O2 saturations 94%, and blood pressure 115/56. LUNGS: Clear. HEART: Regular rate. ASSESSMENT: 1. Urinary tract infection. a. Presenting with altered mental status, dehydration, increased weakness, and falls. b. Urine culture grew Proteus mirabilis, colony count 50,000 to 75,000 with organisms sensitive to ceftriaxone and Levaquin. Blood cultures, no growth. c. Resolved, has completed 9 days of antibiotics between the initial IV Rocephin and the oral Levaquin as of 09/16/2018. 2. Dehydration. a. Resolved. 3. Altered mental status. a. Secondary to urinary tract infection and dehydration. b. Resolved. Back to his mental status baseline. c. Remains at his normal mental status as of 10/04/2018. 4. Marked increased weakness. a. Complicated by frequent falls. b. Improved. Walking up to 200 with his Parkinson walker. Still requires standby assistance. Still requires moderate help with any transfer. Remains still a fall risk, particularly with the Parkinson's to fall backward tendency. Has just started working to try to master a few steps, but very difficult with the Parkinson's as of 10/04/2018. 5. Advanced Parkinson disease. a. Complicated by dysphagia, gait abnormality, weakness, and increased falls. b. Requires assistance with ADLs. c. Complicated by Parkinson's dementia. d. Stable as of 10/04/2018. 6. Hypertension. 7. Depression. 8. Cigarette abuse. 9. History of pulmonary granuloma. 10. Dysphagia. a. Modified barium swallow showed penetration aspiration with thin liquids, delayed swallowing with spillage into the vallecula and pyriform sinuses. Study done on 09/10. b. Requires a pureed diet with nectar-thickened liquids, which he is tolerating well as of 10/04/2018. PLAN: We will continue PT and OT. Will continue to try to work some on the stairs since he has some steps to get into his home. His Parkinson's has made it very difficult with transfers, with his walking, and remains a high fall risk due to his inability to write himself. We will continue efforts. Job ID: [id number] [facility]
[2018-10-04] MEDS: Acetaminophen 325 MG TAB PO PRN (19:29)
[2018-10-04] MEDS: Atorvastatin Calcium 10 MG TAB PO SCH (20:51)
[2018-10-04] MEDS: risperiDONE 1 MG TAB PO SCH (20:55)
[2018-10-04] MEDS: ZONISAMIDE PO SCH (20:57)
[2018-10-04] MEDS: DESMOPRESSIN ACETATE 0.2 MG PO SCH (21:04)
--- NOTE | 2018-10-05 10:07 | PRG ---
DATE OF SERVICE: 10/05/2018 SUBJECTIVE: The patient not yet gotten up out of bed, trying to talk some to me this morning, but more difficult to understand this morning. Nurses have not reported any change in his condition or problems. OBJECTIVE: GENERAL: The patient is lying in bed, alert, does not appear in any distress. VITAL SIGNS: His temperature is 97.7, pulse 92, respirations 18, O2 saturation 97%, and blood pressure 122/62. LUNGS: Clear, except for some coarse rhonchi. HEART: Regular rate. NEUROLOGIC: The patient is awake, very slow on his speech. Speech is a little more difficult to understand this morning. EXTREMITIES: He is able to move his extremities, but left side more stiff in movement. He has tremors in that left hand. ASSESSMENT: 1. Urinary tract infection. a. Presenting with altered mental status, dehydration, increased weakness, and falls. b. Urine culture grew Proteus mirabilis, colony count 50,000 to 75,000 with organisms sensitive to ceftriaxone and Levaquin. Blood cultures, no growth. c. Resolved, has completed 9 days of antibiotics between the initial IV Rocephin and the oral Levaquin as of 09/16/2018. 2. Dehydration. a. Resolved. 3. Altered mental status. a. Secondary to urinary tract infection and dehydration. b. Resolved. Back to his mental status baseline. c. Remains at his normal mental status as of 10/04/2018. 4. Marked increased weakness. a. Complicated by frequent falls. b. Has not yet started his therapy this morning as of 10/05/2018. 5. Advanced Parkinson disease. a. Complicated by dysphagia, gait abnormality, weakness, and increased falls. b. Requires assistance with ADLs. c. Complicated by Parkinson's dementia. d. The patient is a little more stiff and tremulous this morning. He has not yet had his Sinemet as of 10/05 6. Hypertension. 7. Depression. 8. Cigarette abuse. 9. History of pulmonary granuloma. 10. Dysphagia. a. Modified barium swallow showed penetration aspiration with thin liquids, delayed swallowing with spillage into the vallecula and pyriform sinuses. Study done on 09/10. b. Requires a pureed diet with nectar-thickened liquids, which he is tolerating well as of 10/05/2018. PLAN: The patient will be receiving his usual medication. This should help some with the stiffness and tremor and allow him to get up and get back involved with this therapy. Continue present care. [facility] [id number] [facility]
[2018-10-05] MEDS: Venlafaxine HCl XR 150 MG CAP PO SCH (11:55)
[2018-10-05] MEDS: Carbidopa/Levodopa CR 50-200 mg Tablet PO SCH ×3 (11:56→20:18)
[2018-10-05] MEDS: VERAPAMIL HCL 180 MG PO SCH (11:56)
[2018-10-05] MEDS: Potassium Chloride 20 MEQ TAB PO SCH ×2 (11:56→17:28)
[2018-10-05] MEDS: Carbidopa/Levodopa 25-250 mg Tablet PO SCH ×3 (11:56→20:18)
[2018-10-05] MEDS: Tamsulosin HCl 0.4 MG CAP PO SCH ×2 (11:56→20:21)
[2018-10-05] MEDS: DEXTROAMPHETAMINE PO SCH (11:57)
[2018-10-05] MEDS: AMPHETAMINE PO SCH (11:57)
[2018-10-05] MEDS: Atorvastatin Calcium 10 MG TAB PO SCH (20:18)
[2018-10-05] MEDS: DESMOPRESSIN ACETATE 0.2 MG PO SCH (20:20)
[2018-10-05] MEDS: risperiDONE 1 MG TAB PO SCH (20:21)
[2018-10-05] MEDS: ZONISAMIDE PO SCH (20:21)
[2018-10-05] MEDS: Acetaminophen 325 MG TAB PO PRN (20:22)
[2018-10-05] MEDS: Melatonin 3 MG TAB PO PRN (20:22)
[2018-10-06] MEDS: Carbidopa/Levodopa 25-250 mg Tablet PO SCH ×3 (08:30→20:19)
[2018-10-06] MEDS: Venlafaxine HCl XR 150 MG CAP PO SCH (08:30)
[2018-10-06] MEDS: Carbidopa/Levodopa CR 50-200 mg Tablet PO SCH ×3 (08:30→20:20)
[2018-10-06] MEDS: Tamsulosin HCl 0.4 MG CAP PO SCH ×2 (08:30→20:19)
[2018-10-06] MEDS: Potassium Chloride 20 MEQ TAB PO SCH ×2 (08:30→17:10)
[2018-10-06] MEDS: VERAPAMIL HCL 180 MG PO SCH (08:33)
[2018-10-06] MEDS: DEXTROAMPHETAMINE PO SCH (08:33)
[2018-10-06] MEDS: AMPHETAMINE PO SCH (08:33)
--- NOTE | 2018-10-06 09:56 | PRG ---
DATE OF SERVICE: 10/06/2018 SUBJECTIVE: The patient said he is feeling good this morning. He has not yet gotten up from bed. OBJECTIVE: GENERAL: The patient is lying in bed, alert, more talkative. His speech seemed to be coming a little easier than usual. VITAL SIGNS: His temperature is 97.3, pulse 83, respirations 16, O2 saturation 95% on room air, blood pressure 159/83. LUNGS: Clear. HEART: Regular rate. ASSESSMENT: 1. Urinary tract infection. a. Presenting with altered mental status, dehydration, increased weakness, and falls. b. Urine culture grew Proteus mirabilis, colony count 50,000 to 75,000 with organisms sensitive to ceftriaxone and Levaquin. Blood cultures, no growth. c. Resolved, has completed 9 days of antibiotics between the initial IV Rocephin and the oral Levaquin as of 09/16/2018. 2. Dehydration. a. Resolved. 3. Altered mental status. a. Secondary to urinary tract infection and dehydration. b. Resolved. Back to his mental status baseline. c. Remains at his normal mental status as of 10/06/2018. 4. Marked increased weakness. a. Complicated by frequent falls. b. Gradual improvement in his strength. Yesterday, he walked up to 300 feet with his Parkinson walker and standby assistance. He is still requiring moderate assistance with transfers and still needs standby assistance as of 10/06/2018. 5. Advanced Parkinson disease. a. Complicated by dysphagia, gait abnormality, weakness, and increased falls. b. Requires assistance with ADLs. c. Complicated by Parkinson's dementia. d. Stable as of 10/06/2018. 6. Hypertension. 7. Depression. 8. Cigarette abuse. 9. History of pulmonary granuloma. 10. Dysphagia. a. Modified barium swallow showed penetration aspiration with thin liquids, delayed swallowing with spillage into the vallecula and pyriform sinuses. Study done on 09/10. b. Requires a pureed diet with nectar-thickened liquids, which he is tolerating well as of 10/06/2018. PLAN: Continue PT and OT. Job ID: [id number] [facility]
[2018-10-06] MEDS: Atorvastatin Calcium 10 MG TAB PO SCH (20:17)
[2018-10-06] MEDS: risperiDONE 1 MG TAB PO SCH (20:19)
[2018-10-06] MEDS: DESMOPRESSIN ACETATE 0.2 MG PO SCH (20:20)
[2018-10-06] MEDS: ZONISAMIDE PO SCH (20:21)
[2018-10-07] MEDS: Carbidopa/Levodopa 25-250 mg Tablet PO SCH ×3 (09:04→20:41)
[2018-10-07] MEDS: Venlafaxine HCl XR 150 MG CAP PO SCH (09:04)
[2018-10-07] MEDS: Potassium Chloride 20 MEQ TAB PO SCH ×2 (09:04→17:41)
[2018-10-07] MEDS: Carbidopa/Levodopa CR 50-200 mg Tablet PO SCH ×3 (09:04→20:42)
[2018-10-07] MEDS: Tamsulosin HCl 0.4 MG CAP PO SCH ×2 (09:04→20:41)
[2018-10-07] MEDS: VERAPAMIL HCL 180 MG PO SCH (09:05)
[2018-10-07] MEDS: DEXTROAMPHETAMINE PO SCH (09:22)
[2018-10-07] MEDS: AMPHETAMINE PO SCH (09:22)
[2018-10-07] MEDS: Atorvastatin Calcium 10 MG TAB PO SCH (20:40)
[2018-10-07] MEDS: Melatonin 3 MG TAB PO PRN (20:41)
[2018-10-07] MEDS: risperiDONE 1 MG TAB PO SCH (20:41)
[2018-10-07] MEDS: DESMOPRESSIN ACETATE 0.2 MG PO SCH (20:42)
[2018-10-07] MEDS: ZONISAMIDE PO SCH (20:43)
[2018-10-08] MEDS: Potassium Chloride 20 MEQ TAB PO SCH ×2 (10:12→17:32)
[2018-10-08] MEDS: Carbidopa/Levodopa CR 50-200 mg Tablet PO SCH ×3 (10:12→20:30)
[2018-10-08] MEDS: VERAPAMIL HCL 180 MG PO SCH (10:13)
[2018-10-08] MEDS: Tamsulosin HCl 0.4 MG CAP PO SCH ×2 (10:14→20:31)
[2018-10-08] MEDS: Venlafaxine HCl XR 150 MG CAP PO SCH (10:15)
[2018-10-08] MEDS: DEXTROAMPHETAMINE PO SCH (10:29)
[2018-10-08] MEDS: AMPHETAMINE PO SCH (10:29)
[2018-10-08] MEDS: Carbidopa/Levodopa 25-250 mg Tablet PO SCH ×3 (10:30→20:30)
[2018-10-08] MEDS: Acetaminophen 325 MG TAB PO PRN (15:22)
[2018-10-08] MEDS: Atorvastatin Calcium 10 MG TAB PO SCH (20:30)
[2018-10-08] MEDS: DESMOPRESSIN ACETATE 0.2 MG PO SCH (20:31)
[2018-10-08] MEDS: risperiDONE 1 MG TAB PO SCH (20:31)
[2018-10-08] MEDS: ZONISAMIDE PO SCH (20:32)
[2018-10-08] MEDS: Melatonin 3 MG TAB PO PRN (20:32)
[2018-10-09] MEDS: VERAPAMIL HCL 180 MG PO SCH (08:50)
[2018-10-09] MEDS: AMPHETAMINE PO SCH (08:50)
[2018-10-09] MEDS: Potassium Chloride 20 MEQ TAB PO SCH ×2 (08:50→17:16)
[2018-10-09] MEDS: DEXTROAMPHETAMINE PO SCH (08:50)
[2018-10-09] MEDS: Carbidopa/Levodopa CR 50-200 mg Tablet PO SCH ×3 (08:51→20:32)
[2018-10-09] MEDS: Carbidopa/Levodopa 25-250 mg Tablet PO SCH ×3 (08:51→20:32)
[2018-10-09] MEDS: Venlafaxine HCl XR 150 MG CAP PO SCH (08:51)
[2018-10-09] MEDS: Tamsulosin HCl 0.4 MG CAP PO SCH ×2 (08:51→20:33)
[2018-10-09] MEDS: Atorvastatin Calcium 10 MG TAB PO SCH (20:31)
[2018-10-09] MEDS: DESMOPRESSIN ACETATE 0.2 MG PO SCH (20:32)
[2018-10-09] MEDS: ZONISAMIDE PO SCH (20:32)
[2018-10-09] MEDS: Melatonin 3 MG TAB PO PRN (20:33)
[2018-10-09] MEDS: risperiDONE 1 MG TAB PO SCH (20:33)
[2018-10-10] MEDS: Carbidopa/Levodopa CR 50-200 mg Tablet PO SCH ×3 (11:05→20:35)
[2018-10-10] MEDS: Carbidopa/Levodopa 25-250 mg Tablet PO SCH ×3 (11:06→20:35)
[2018-10-10] MEDS: Venlafaxine HCl XR 150 MG CAP PO SCH (11:06)
[2018-10-10] MEDS: Potassium Chloride 20 MEQ TAB PO SCH ×2 (11:06→17:12)
[2018-10-10] MEDS: Tamsulosin HCl 0.4 MG CAP PO SCH ×2 (11:07→20:36)
[2018-10-10] MEDS: DEXTROAMPHETAMINE PO SCH (11:07)
[2018-10-10] MEDS: VERAPAMIL HCL 180 MG PO SCH (11:07)
[2018-10-10] MEDS: AMPHETAMINE PO SCH (11:07)
[2018-10-10] MEDS: Atorvastatin Calcium 10 MG TAB PO SCH (20:34)
[2018-10-10] MEDS: DESMOPRESSIN ACETATE 0.2 MG PO SCH (20:35)
[2018-10-10] MEDS: ZONISAMIDE PO SCH (20:35)
[2018-10-10] MEDS: risperiDONE 1 MG TAB PO SCH (20:36)
[2018-10-10] MEDS: Melatonin 3 MG TAB PO PRN (20:36)
[2018-10-11] MEDS: Potassium Chloride 20 MEQ TAB PO SCH ×2 (08:56→16:57)
[2018-10-11] MEDS: Carbidopa/Levodopa CR 50-200 mg Tablet PO SCH ×3 (08:57→20:16)
[2018-10-11] MEDS: Tamsulosin HCl 0.4 MG CAP PO SCH ×2 (08:57→20:20)
[2018-10-11] MEDS: VERAPAMIL HCL 180 MG PO SCH (08:57)
[2018-10-11] MEDS: Venlafaxine HCl XR 150 MG CAP PO SCH (08:57)
[2018-10-11] MEDS: Carbidopa/Levodopa 25-250 mg Tablet PO SCH ×3 (08:57→20:15)
[2018-10-11] MEDS: AMPHETAMINE PO SCH (08:58)
[2018-10-11] MEDS: DEXTROAMPHETAMINE PO SCH (08:58)
--- NOTE | 2018-10-11 11:49 | PRG ---
DATE OF SERVICE: 10/08/2018 SUBJECTIVE: The patient is sitting up in his chair in his room. He had breakfast. He had no complaint. The patient is very slow in answering questions. OBJECTIVE: GENERAL: The patient is alert, appears comfortable, and in no distress. VITAL SIGNS: His temperature is 98.9, pulse 92, respirations 18, O2 saturation 94% on room air, and blood pressure is 137/64. LUNGS: Clear. HEART: Regular rate. Physical therapy, the patient yesterday walked up to 200 feet with a rolling walker and standby assistance, the patient is still requiring moderate assistance with any transfers. ASSESSMENT: 1. Urinary tract infection. a. Presenting with altered mental status, dehydration, increased weakness, and falls. b. Urine culture grew Proteus mirabilis, colony count 50,000 to 75,000 with organisms sensitive to ceftriaxone and Levaquin. Blood cultures, no growth. c. Resolved, has completed 9 days of antibiotics between the initial IV Rocephin and the oral Levaquin as of 09/16/2018. 2. Dehydration. a. Resolved. 3. Altered mental status. a. Secondary to urinary tract infection and dehydration. b. Resolved. Back to his mental status baseline. c. Remains at his normal mental status as of 10/08/2018. 4. Marked increased weakness. a. Complicated by frequent falls. b. Gradual improvement in his strength, still remains a fall risk due to his inability to ride himself. Yesterday, he was walking up to 150 feet, but requires standby assistance and requires moderate assistance with transfer as of 10/08/2018. 5. Advanced Parkinson disease. a. Complicated by dysphagia, gait abnormality, weakness, and increased falls. b. Requires assistance with ADLs. c. Complicated by Parkinson's dementia. d. Stable as of 10/08/2018. 6. Hypertension. 7. Depression. 8. Cigarette abuse. 9. History of pulmonary granuloma. 10. Dysphagia. a. Modified barium swallow showed penetration aspiration with thin liquids, delayed swallowing with spillage into the vallecula and pyriform sinuses. Study done on 09/10. b. Requires a pureed diet with nectar-thickened liquids, which he is tolerating well as of 10/08/2018. PLAN: Continue PT and OT. Job ID: [id number] [facility]
--- NOTE | 2018-10-11 11:50 | PRG ---
DATE OF SERVICE: 10/09/2018 SUBJECTIVE: The patient had no complaint this morning. Nurses did not report any change in his condition or problems. OBJECTIVE: GENERAL: The patient is sitting up in a chair, eating a little of his dessert, which he does very slowly and with a modified spoon. He appears comfortable. VITAL SIGNS: Show a temp of 97.8, pulse 87, respirations 18, O2 saturation 93% on room air, and blood pressure 159/75. LUNGS: Clear. HEART: Regular rate. ASSESSMENT: 1. Urinary tract infection. a. Presenting with altered mental status, dehydration, increased weakness, and falls. b. Urine culture grew Proteus mirabilis, colony count 50,000 to 75,000 with organisms sensitive to ceftriaxone and Levaquin. Blood cultures, no growth. c. Resolved, has completed 9 days of antibiotics between the initial IV Rocephin and the oral Levaquin as of 09/16/2018. 2. Dehydration. a. Resolved. 3. Altered mental status. a. Secondary to urinary tract infection and dehydration. b. Resolved. Back to his mental status baseline. c. Remains at his normal mental status as of 10/09/2018. 4. Marked increased weakness. a. Complicated by frequent falls. b. Gradual improvement in his strength. Yesterday, he walked up to 300 feet with his Parkinson walker and standby assistance. He is still requiring moderate assistance with transfers and still needs standby assistance as of 10/09/2018. 5. Advanced Parkinson disease. a. Complicated by dysphagia, gait abnormality, weakness, and increased falls. b. Requires assistance with ADLs. c. Complicated by Parkinson's dementia. d. Stable as of 10/09/2018. 6. Hypertension. 7. Depression. 8. Cigarette abuse. 9. History of pulmonary granuloma. 10. Dysphagia. a. Modified barium swallow showed penetration aspiration with thin liquids, delayed swallowing with spillage into the vallecula and pyriform sinuses. Study done on 09/10. b. Requires a pureed diet with nectar-thickened liquids, which he is tolerating well as of 10/09/2018. PLAN: Continue present care. Continue PT. Job ID: [id number] [facility]
--- NOTE | 2018-10-11 11:50 | PRG ---
DATE OF SERVICE: 10/11/2018 SUBJECTIVE: The patient is up, sitting in his bedside chair. He is awake, a little more talkative than usual, and appears in no distress. He had no complaints. OBJECTIVE: VITAL SIGNS: Show temperature last evening of 99.2, pulse 102, respirations 20, O2 saturation 97% on room air, blood pressure 134/77. Morning vitals are pending. LUNGS: Clear. HEART: Regular rate. EXTREMITIES: No edema. ASSESSMENT: 1. Urinary tract infection. a. Presenting with altered mental status, dehydration, increased weakness, and falls. b. Urine culture grew Proteus mirabilis, colony count 50,000 to 75,000 with organisms sensitive to ceftriaxone and Levaquin. Blood cultures, no growth. c. Resolved, has completed 9 days of antibiotics between the initial IV Rocephin and the oral Levaquin as of 09/16/2018. 2. Dehydration. a. Resolved. 3. Altered mental status. a. Secondary to urinary tract infection and dehydration. b. Resolved. Back to his mental status baseline. c. Remains at his normal mental status as of 10/11/2018. 4. Marked increased weakness. a. Complicated by frequent falls. b. Gradual improvement in his strength. Yesterday, he walked up to 300 feet with his Parkinson walker and standby assistance. He is still requiring moderate assistance with transfers and still needs standby assistance as of 10/11/2018. 5. Advanced Parkinson disease. a. Complicated by dysphagia, gait abnormality, weakness, and increased falls. b. Requires assistance with ADLs. c. Complicated by Parkinson's dementia. d. Stable as of 10/06/2018. 6. Hypertension. 7. Depression. 8. Cigarette abuse. 9. History of pulmonary granuloma. 10. Dysphagia. a. Modified barium swallow showed penetration aspiration with thin liquids, delayed swallowing with spillage into the vallecula and pyriform sinuses. Study done on 09/10. b. Requires a pureed diet with nectar-thickened liquids, which he is tolerating well as of 10/11/2018. PLAN: Continue PT/OT. Job ID: [id number] [facility]
[2018-10-11] MEDS: Atorvastatin Calcium 10 MG TAB PO SCH (20:15)
[2018-10-11] MEDS: DESMOPRESSIN ACETATE 0.2 MG PO SCH (20:16)
[2018-10-11] MEDS: ZONISAMIDE PO SCH (20:18)
[2018-10-11] MEDS: risperiDONE 1 MG TAB PO SCH (20:19)
[2018-10-11] MEDS: Melatonin 3 MG TAB PO PRN (20:20)
[2018-10-12] MEDS: VERAPAMIL HCL 180 MG PO SCH (08:56)
[2018-10-12] MEDS: AMPHETAMINE PO SCH (08:56)
[2018-10-12] MEDS: DEXTROAMPHETAMINE PO SCH (08:56)
[2018-10-12] MEDS: Venlafaxine HCl XR 150 MG CAP PO SCH (08:57)
[2018-10-12] MEDS: Carbidopa/Levodopa CR 50-200 mg Tablet PO SCH ×3 (08:57→21:08)
[2018-10-12] MEDS: Tamsulosin HCl 0.4 MG CAP PO SCH ×2 (08:57→21:08)
[2018-10-12] MEDS: Carbidopa/Levodopa 25-250 mg Tablet PO SCH ×3 (08:57→21:08)
[2018-10-12] MEDS: Potassium Chloride 20 MEQ TAB PO SCH ×2 (08:57→17:10)
--- NOTE | 2018-10-12 11:04 | PRG ---
DATE OF SERVICE: 10/12/2018 SUBJECTIVE: The patient says he is doing okay this morning. He has not gotten up yet out of bed. He has continued to work with physical therapy. He is due to see his neurologist, Dr. De La Vega today. OBJECTIVE: GENERAL: The patient is lying in bed, alert, talkative, but slow to respond. He appears comfortable, and in no distress. VITAL SIGNS: Temperature 98.7, pulse 86, respirations 18, O2 saturation 92% on room air, blood pressure 136/62. LUNGS: Clear. HEART: Regular rate. EXTREMITIES: No edema. ASSESSMENT: 1. Urinary tract infection. a. Presenting with altered mental status, dehydration, increased weakness, and falls. b. Urine culture grew Proteus mirabilis, colony count 50,000 to 75,000 with organisms sensitive to ceftriaxone and Levaquin. Blood cultures, no growth. c. Resolved, has completed 9 days of antibiotics between the initial IV Rocephin and the oral Levaquin as of 09/16/2018. 2. Dehydration. a. Resolved. 3. Altered mental status. a. Secondary to urinary tract infection and dehydration. b. Resolved. Back to his mental status baseline. c. Remains at his normal mental status as of 10/12/2018. 4. Marked increased weakness. a. Complicated by frequent falls. b. Gradual improvement in his strength. Yesterday, he walked up to 300 feet with his Parkinson walker and standby assistance. He is still requiring moderate assistance with transfers and still needs standby assistance as of 10/12/2018. 5. Advanced Parkinson disease. a. Complicated by dysphagia, gait abnormality, weakness, and increased falls. b. Requires assistance with ADLs. c. Complicated by Parkinson's dementia. d. Stable as of 10/12/2018. 6. Hypertension. 7. Depression. 8. Cigarette abuse. 9. History of pulmonary granuloma. 10. Dysphagia. a. Modified barium swallow showed penetration aspiration with thin liquids, delayed swallowing with spillage into the vallecula and pyriform sinuses. Study done on 09/10. b. Requires a pureed diet with nectar-thickened liquids, which he is tolerating well as of 10/12/2018. PLAN: Continue physical therapy. The patient due to see Dr. De La Vega, his neurologist today. Will visit with his Mari and plan on a discharge date. Job ID: [id number] [facility]
[2018-10-12] MEDS: risperiDONE 1 MG TAB PO SCH (21:07)
[2018-10-12] MEDS: Atorvastatin Calcium 10 MG TAB PO SCH (21:07)
[2018-10-12] MEDS: DESMOPRESSIN ACETATE 0.2 MG PO SCH (21:09)
[2018-10-12] MEDS: ZONISAMIDE PO SCH (21:12)
[2018-10-13] MEDS: Potassium Chloride 20 MEQ TAB PO SCH (08:24)
[2018-10-13] MEDS: Tamsulosin HCl 0.4 MG CAP PO SCH (08:24)
[2018-10-13] MEDS: Carbidopa/Levodopa 25-250 mg Tablet PO SCH (08:24)
[2018-10-13] MEDS: Carbidopa/Levodopa CR 50-200 mg Tablet PO SCH (08:24)
[2018-10-13] MEDS: VERAPAMIL HCL 180 MG PO SCH (08:25)
[2018-10-13] MEDS: Venlafaxine HCl XR 150 MG CAP PO SCH (08:25)
[2018-10-13] MEDS: DEXTROAMPHETAMINE PO SCH (08:31)
[2018-10-13] MEDS: AMPHETAMINE PO SCH (08:31)
[2018-10-13 09:29] VITALS: BP 131/71; TEMP 97.7
--- NOTE | 2018-10-13 10:24 | DIS ---
DATE OF ADMISSION: 09/11/2018 DATE OF DISCHARGE: 10/13/2018 Admitted to acute care on 09/08/2018, transferred to extended care on 09/11/2018, and then discharged on 10/13/2018. FINAL DIAGNOSES: Please type the assessment from the progress note of 10/12 with the following changes: 3C. Change the date to 10/13. 4B. Change the date to 10/13. 5D. Change the date to 10/13. 10B. Change the date to 10/13. SUMMARY: The patient is a 73-year-old white male, who has a history of advanced Parkinson disease, complicated by Parkinson dementia and dysphagia. He lives at his home with his , who is his primary caregiver. He requires assistance with all his ADLs. The patient was brought to the emergency room on the day of admission, that is 09/08/2018, because of increased lethargy, increased weakness and increased falls. His initial evaluation showed evidence of urinary tract infection and dehydration. He was admitted to acute care and was cautiously hydrated. His urine culture grew Proteus mirabilis with a colony count of 50,000 to 75,000, that was sensitive to the ceftriaxone and Levaquin, which the patient had been treated with. His blood cultures had no growth. He completed a 9-day course of IV antibiotics initially with IV Rocephin and then switched to oral Levaquin. He had no additional symptoms of any urinary tract infection. The dehydration resolved and his mental status returned to his baseline. The patient though was left with still marked weakness complicated by the frequent falls. It was elected to move the patient to extended care on 09/11/2018 for the purpose of physical therapy in an effort to improve his strength, his walking, his balance and his transfers, and reduce his risk of falls. During his hospitalization, he made gradual improvement and by the time of his discharge on 10/13, he could walk up to 200 feet 2 times a day, then he just tired and could not go any further. He used a Parkinson walker with standby assistance. He required moderate and sometimes maximum assistance with transfers. Once he was standing, he did very well, but due to his Parkinson's, he had trouble with balance and inability to write himself. This standby assistance was essential to help prevent him from leaning backwards and falling. His transfers improve some, but he still required at least moderate, sometimes maximum assistance with transfers. He has dysphagia as a result of the Parkinson's. Speech Therapy worked with him and he is doing well with a pureed diet with nectar-thickened liquids. He is under the care of a neurologist, Dr. De La Vega and had seen him in followup on 10/12. His condition improved. His dehydration did resolve and did not recur, and he had no evidence of urinary tract infection. His condition has improved such that his , Mari, felt like she could now handle him better at home. His strength was certainly better than when he entered, but he still remains a fall risk and will still require assistance with his ADLs. His Parkinson dementia seemed to be controlled with the use of his risperidone at nighttime. He had been on Adderall prior to his hospitalization for apathy. This was tapered and stopped, but once this was stopped, he seems to be much more apathetic and very sleepy in the mornings, and hard to work with. The Adderall was restarted at 10 mg and this did seem to help, and he did not seem to have any ill affects from this. The patient was discharged on 10/13/2018 and will be followed up in my office in 2 weeks. DISPOSITION: DIET: Pureed diet with nectar-thickened liquids. He should eat all meals sitting upright in small bites. ACTIVITIES: Encourage the patient to ambulate with the use of his Parkinson walker and assistance. The patient will require assistance with all his ADLs. We will arrange for home health to see the patient. Continue in-home physical therapy and occupational therapy. MEDICATIONS: 1. Acetaminophen 325 mg two every 4 hours as needed. 2. Atorvastatin 40 mg at bedtime. 3. Carbidopa/levodopa 25/250 mg one 3 times a day at 9:00 a.m., 3:00 p.m., and 9:00 p.m. 4. Sinemet CR 50/200 one tablet 3 times a day at 9:00 a.m., 3:00 p.m., and 9:00 p.m. 5. Desmopressin acetate 0.2 mg one at bedtime. 6. Adderall 20 mg daily. 7. Melatonin 3 mg at bedtime p.r.n. 8. Potassium chloride (K-Dur) 20 mEq b.i.d. 9. Risperidone 3 mg at bedtime. 10. Tamsulosin 0.4 mg b.i.d. 11. Venlafaxine XR 150 mg daily. 12. Verapamil ER 180 mg 1 daily. 13. Zonegran at bedtime. FOLLOWUP: The patient will be seen in followup in 2 weeks. Home Health will spanish moss picker on his care for PT and OT, and also will need lab work of a CBC and basic metabolic panel prior to his return visit in 2 weeks. CODE STATUS: Full code. Job ID: [id number]
[2018-10-13] MEDS: Acetaminophen 325 MG TAB PO PRN (10:51)
== END 2018-10-13 12:26 | disposition home health service (06) | DRG 690 ==
LOC: MADMS 13:25
PROVIDERS: ADMIT Family Medicine; ATTEND Family Medicine
DX: N39.0 Urinary tract infection, site not specified (principal); I10 Essential (primary) hypertension; G20 Parkinson's disease; F32.9 Major depressive disorder, single episode, unspecified; F02.80 Dementia in other diseases classified elsewhere, unspecified severity, without behavioral disturbance, psychotic disturbance, mood disturbance, and anxiety; E78.5 Hyperlipidemia, unspecified; E86.0 Dehydration; B96.4 Proteus (mirabilis) (morganii) as the cause of diseases classified elsewhere; R13.10 Dysphagia, unspecified; F17.210 Nicotine dependence, cigarettes, uncomplicated; Z79.899 Other long term (current) drug therapy; Z88.8 Allergy status to other drugs, medicaments and biological substances; Z91.81 History of falling; Z87.09 Personal history of other diseases of the respiratory system
CPT/HCPCS: 36415; 80048; 85007; 85027; 90471; 90662; G0008

== ENCOUNTER 2018-11-10 15:40 | Outpatient (CLI) | payer MEDICARE, BC ==
[2018-11-10 16:13] LABS: Sodium 141 mmol/L (136-145)
== END 2018-11-10 15:41 | disposition home or self-care (01) ==
LOC: MADLAB 15:40
PROVIDERS: ATTEND Urology
DX: G20 Parkinson's disease (principal)
CPT/HCPCS: 84295

== ENCOUNTER 2018-11-30 14:10 | Outpatient (CLI) | payer MEDICARE, BC ==
--- NOTE | 2018-11-30 14:47 | CT ---
CT Stone Protocol History: [Abdominal pain. Hematuria. Urinary tract infection] Comparison: CT abdomen and pelvis 2017 Findings: Mild reticulation in the lung bases as well as the right middle lobe. Calcified granulomas right hilum. No pericardial effusion. Moderate atherosclerotic plaque of the aorta. Right renal cysts are similar. There is no nephro ureterolithiasis or hydroureteronephrosis. No [place] evidence of a recently passed stone. There are phleboliths in the pelvis. Large volume stool thr oughout the colon. Although the appendix is not seen and there are no secondary signs of acute appendicitis. Noncontrast evaluation of the liver, spleen, gallbladder are unremarkable. Impression: No nephro ureterolithiasis or hydroureteronephrosis. No secondary evidence of a recently passed stone. Large volume stool throughout the colon. No acute inflammatory process within the abdomen or pelvis.
== END 2018-11-30 14:11 | disposition home or self-care (01) ==
LOC: MADCT 14:10
PROVIDERS: ATTEND Urology
DX: N39.0 Urinary tract infection, site not specified (principal)
CPT/HCPCS: 74176

== ENCOUNTER 2018-12-17 19:27 | Emergency (ER) | payer MEDICARE, BC ==
[2018-12-17] MEDS ORDERED: Ibuprofen 600 MG TAB ONE (19:49)
--- NOTE | 2018-12-17 20:24 | RAD ---
PORTABLE CHEST ONE VIEW: 12/17/18 at 8 p.m. HISTORY: Cough. FINDINGS: Comparison is made with exam of 09/08/18. There is continued elevation of the right hemidiaphragm. No lobar consolidation, pneumothoraces, oscar k pulmonary edema or pleural effusions are seen. Mild prominence of the interstitial markings are aga in noted. IMPRESSION: No acute process. POS: [facility]
[2018-12-17] MEDS ORDERED: Piperacillin/Tazobactam 3.375 GM VIAL ONE (20:28)
[2018-12-17] MEDS ORDERED: Sodium Chloride 0.9% 100 ML ONE (20:29)
[2018-12-17 20:34] LABS: ALT (SGPT) 8 U/L (8-55); AST (SGOT) 10 U/L (5-34); Albumin 4.4 g/dL (3.4-4.8); Alkaline Phosphatase 124 U/L (40-150); Anion Gap 18 mmol/L (10-20); BUN (Urea Nitrogen) 16 mg/dL (8.4-25.7); Bilirubin, Total 0.8 mg/dL (0.2-1.2); Calc. Creatinine Clearance 0 mL/min (70-130); Calcium 9.6 mg/dL (7.8-10.44); Carbon Dioxide 21 mmol/L (23-31); Chloride 105 mmol/L (98-107); Estimated GFR-MDRD Greater than 90; Globulin 3.1 g/dL (2.4-3.5); Glucose 134 mg/dL (83-110); Potassium 4.1 mmol/L (3.5-5.1); Protein, Total 7.5 g/dL (5.8-8.1); Sodium 140 mmol/L (136-145)
[2018-12-17 20:35] LABS: Band 4 % (5-11); Lymphocytes 3 % (21-51); MDiff Complete? YES; Mean Corpuscular HGB CONC 33.3 g/dL (32.0-36.0); Mean Corpuscular Hemoglobin 31.3 pg (27.0-31.0); Mean Platelet Volume 5.7 fL (7.4-10.4); Neutrophil 91 % (42-75); Platelet Count 249 thou/uL (130-400); Platelet Morphology Comment Appears Adequate; RBC Distribution Width 12.1 % (11.5-14.5); RBC Morphology Normal; Reactive Lymphocytes 2 % (0-10); Red Blood Cell (RBC) Count 4.79 mill/uL (4.70-6.10)
[2018-12-17 20:41] LABS: Bilirubin Negative (Negative); Blood, Urine Negative (Negative); Glucose, Urine (Dipstick) Negative (Negative); Leukocyte Negative (Negative); Nitrite Negative (Negative); Protein, Urine (Dipstick) Negative (Neg-Trace); Urobilinogen 0.2 mg/dL (0.2-1.0)
[2018-12-17 20:42] LABS: Clarity Hazy (Clear)
[2018-12-17] MEDS ORDERED: Sodium Chloride 0.9% 1,000 ML ONE ×2 (21:03→21:59)
[2018-12-17] MEDS ORDERED: Ibuprofen 200 MG TAB ONE (21:03)
[2018-12-18 00:33] LABS: Lactic Acid 2.7 mmol/L (0.5-2.2)
[2018-12-18] MEDS ORDERED: Sodium Chloride 0.9% 1,000 ML ONE ×2 (02:40→06:33)
[2018-12-18] MEDS ORDERED: Piperacillin/Tazobactam 3.375 GM VIAL ONE (03:50)
[2018-12-18] MEDS ORDERED: Sodium Chloride 0.9% 100 ML ONE (03:51)
== END 2018-12-18 08:58 | disposition short-term general hospital (02) ==
LOC: MADERS 19:27
DX: A41.9 Sepsis, unspecified organism (principal); J69.0 Pneumonitis due to inhalation of food and vomit; E78.5 Hyperlipidemia, unspecified; G20 Parkinson's disease; F32.9 Major depressive disorder, single episode, unspecified; Z79.899 Other long term (current) drug therapy
CPT/HCPCS: 36415; 51702; 71045; 80053; 81003; 83605; 83880; 84484; 85025; 87040; 87081; 87086; 87430; 87804; 93005; 94760; 96361; 96365; 96366; J2543; J3490; J7050

== ENCOUNTER 2018-12-21 07:54 | Inpatient (IN) | payer MEDICARE, BC ==
[2018-12-28] MEDS ORDERED: Finasteride 5 MG TAB PO SCH (21:45)
[2018-12-28] MEDS ORDERED: risperiDONE 1 MG TAB PER TUBE SCH (21:45)
[2018-12-28] MEDS ORDERED: Divalproex Sodium 125 mg Sprinkle Capsule PER TUBE SCH (21:45)
[2018-12-28] MEDS ORDERED: Carbidopa/Levodopa 25-100 mg Tablet PER TUBE SCH (21:45)
[2018-12-28] MEDS ORDERED: Carbidopa/Levodopa CR 50-200 mg Tablet PO SCH (21:45)
[2018-12-28] MEDS ORDERED: Melatonin 3 MG TAB PER TUBE SCH (21:45)
[2018-12-28] MEDS ORDERED: Amoxicillin/Potassium Clav 250 mg/5 ml Oral Suspension PER TUBE SCH (22:15)
[2018-12-28] MEDS ORDERED: Amoxicillin/Potassium Clav 250 mg/5 ml Oral Suspension ONE (22:25)
[2018-12-29] MEDS ORDERED: Non-Formulary Item 1 EACH (Dextroamphetamine/Amphetamine [Adderall 20 Mg Tablet] 20 MG) PO SCH (09:00)
[2018-12-29] MEDS ORDERED: VERAPAMIL HCL 180 MG PO SCH (09:00)
[2018-12-29] MEDS ORDERED: Venlafaxine HCl XR 150 MG CAP PO SCH ×2 (09:00)
[2018-12-29] MEDS ORDERED: Non-Formulary Item 1 EACH (Venlafaxine Hcl [Venlafaxine Hcl Er] 150 MG) PO SCH (09:00)
[2018-12-29] MEDS: Carbidopa/Levodopa CR 50-200 mg Tablet PO SCH ×3 (10:04→20:39)
[2018-12-29] MEDS: Tamsulosin HCl 0.4 MG CAP PO SCH (10:04)
[2018-12-29] MEDS: Venlafaxine HCl XR 150 MG CAP PO SCH (10:04)
[2018-12-29] MEDS: Carbidopa/Levodopa 25-100 mg Tablet PER TUBE SCH ×3 (10:04→20:39)
[2018-12-29] MEDS: Polyethylene Glycol 3350 17 GM Packet PER TUBE SCH (10:04)
[2018-12-29] MEDS: Amoxicillin/Potassium Clav 250 mg/5 ml Oral Suspension PER TUBE SCH ×2 (10:04→20:39)
[2018-12-29] MEDS: Divalproex Sodium 125 mg Sprinkle Capsule PER TUBE SCH ×2 (10:04→20:39)
--- NOTE | 2018-12-29 13:50 | HP ---
CHIEF COMPLAINT: Weak and not able to care for self. HISTORY OF PRESENT ILLNESS: The patient is a 73-year-old white male, who has advanced Parkinson's disease that has been complicated by severe dysphagia, gait abnormality, weakness, and frequent falls. He has required assistance with all his ADLs and previous modified barium swallow showed penetration and aspiration with thin liquids and delayed swallowing with spillage into the vallecula. This was in August of 2017. The patient has been taken care of at home by his and [id number] and he has been on a pureed diet with nectar-thickened liquids. His condition has been one of continual deterioration, to where he falls very easily , primarily in bed and has not been able to eat without choking. He became progressively weaker and was running fever and consequently, was taken to the emergency room and subsequently, admitted to [facility], where he remain from 12/18/2018 until 12/28/2018. He was found to have an aspiration pneumonia, and CT scan of the chest and abdomen and pelvis showed ground-glass opacities in particularly the posterior right lung base. He had a sepsis-like presentation and he was found to have continual progression of his Parkinson's and his dysphagia had gotten much worse, to where even on a pureed diet, he was choking every time he would eat. He was seen in consultation by car manager and the recommendation was that if the family was agreeable, should be fed via enteral feedings through a PEG. The family, his Mari and [id number], Shira Baird were agreeable. On 12/23/2018, he underwent an EGD, which showed erosive esophagitis from reflux and he had placement of a PEG tube. Postop, he did develop a higher fever and was found to have area of pneumonia. The aspiration pneumonias were treated with IV antibiotics and improved and he was switched to oral antibiotics using Augmentin and recommended that he remain on these for a 10-day period. His feedings were being done through his G-tube and he was tolerating this just fine. He was offered a diet, pureed foods just for pleasure feeding, but he was not taking much of and certainly imposed a danger of aspiration. The patient was left very weak, very essentially bed confined. It was opted to move him to [facility], where he arrived late on the evening of 12/28/2018. The purpose of this was for continuation of the G- tube feeding and to allow for Physical Therapy to work with him to see if there was any chance of any improvement in his functional capability. The physicians that took care of him in [place], primary admitting physician was Dr. Agustin Lehman, who felt like he would probably need to be gradually transitioned to a long-term care facility and/or Hospice care. The patient arrived early evening at [facility] and was comfortable. He settled in bed and G-tube feedings continued. The patient was seen by myself early on the morning of 12/29/2018. The patient was lying in bed. His eyes were closed, but he would open them a little bit when name was called and he would try to help a little bit with movement when requested. He was not able to talk and could not give me any information about his situation. I have known Tim for many years and attended him during his hospital stay in August until September of 2018, and I have reviewed these records, and the records from [place]. PAST MEDICAL HISTORY: Hospitalized at [facility] from 12/18 to 12/28/2018, for aspiration pneumonia, severe dysphagia from his advanced Parkinson's disease and required placement of a PEG tube on 12/23/2018. He was also found to be tachycardic and be anemic. The patient was hospitalized at [facility] from 09/11/2018 to 10/13/2018 for urinary tract infection and dehydration that after improved, he was shifted to extended care, where Physical Therapy worked with him and he did improve, where he was walking short distances with his walker and standby assistance. He still required total care and due to his dysphagia, a pureed diet with nectar-thickened liquids. The patient has advanced Parkinson's disease that is complicated by dysphagia, now for which he has a PEG tube, that was placed on 12/23/2018. He requires assistance with all his ADLs and has had problems with frequent falls. He also has a Parkinson's dementia complicated by hallucinations , agitation and confusion. He has hypertension, diverticulosis, hyperlipidemia, cluster headaches had been controlled with verapamil, depression with apathy. Colonoscopy 2004 showed diverticular disease. PRESENT MEDICATIONS: 1. Augmentin 875 mg b.i.d., started on 12/28/2018. Will need to continue for 10 days. 2. Atorvastatin 40 mg daily. 3. Sinemet 25/250 mg one three times a day. 4. Sinemet CR 50/200 one t.i.d. 5. Desmopressin 0.2 mg three tablets at night. 6. Depakote Sprinkle 125 mg b.i.d. 7. Finasteride 5 mg at night. 8. Melatonin 10 mg at night. 9. Risperidone 4 mg at night. 10. Tamsulosin 0.4 mg b.i.d. 11. Venlafaxine ER 150 mg daily. 12. Adderall 20 mg daily. 13. MiraLAX 17 g 8 ounces of water b.i.d. 14. Potassium chloride 20 mEq b.i.d. 15. Verapamil ER 180 mg daily. ALLERGIES: AMITRIPTYLINE CAUSES ANXIETY AND PALPITATION, AND RACING HEART. REVIEW OF SYSTEMS: The patient is unable to go through review of system. The patient requires total care and is being fed now through a PEG tube, and has been offered pleasure feeding, which poses a risk for aspiration. HABITS: Alcohol, none. Tobacco, the patient used to smoke about a half a pack of cigarettes a day. SOCIAL HISTORY: The patient is , lives with his , who is his primary caregiver and she is assisted by her mother Shira Baird, and also has home health that comes in to assist her. CODE STATUS: Full code. PHYSICAL EXAMINATION: GENERAL: Shows a 73-year-old white male, who was lying in bed, who when his name was called, he would slightly open his eyes, but was not able to talk. He was lying very still in bed, did not appear in any respiratory distress. He has a nasal cannula that is in his mouth. VITAL SIGNS: Show a temperature of 99.4, pulse 96, respirations are 20, O2 saturation 94% on 3 L, blood pressure 122/68. His weight is 141. HEENT: Head, normocephalic, atraumatic. Eyes, pupils are small, but equal and reactive. Sclerae are nonicteric. Ears, TMs are clear. Nose, normal. Mouth and throat, mucous membranes are moist. NECK: No adenopathy. Thyroid not enlarged. LUNGS: Clear. There is some decrease in the breath sounds at the bases. HEART: Regular rate. No murmurs. ABDOMEN: Soft, nontender. No organomegaly. There is a G-tube present, left upper quadrant. There is no surrounding redness. EXTREMITIES: There is no edema. SKIN: There are no rashes. Skin is warm. Forehead is a little sweaty. NEUROLOGIC: The patient barely responsive to vocal stimuli by just barely opening his eyes. He does try to assist me a little bit when turning him or moving his arm. He has slow movement of his extremities, and he has severe generalized weakness. IMPRESSION: 1. Severe weakness. a. Presently leaving him bed confined, requiring total care. b. Secondary to his advance Parkinson's and recent aspiration pneumonia. 2. Hospitalized at [facility] from 12/18/2018 to 12/28/2018 for aspiration pneumonia with sepsis, progression of his Parkinson's with severe dysphagia , requiring G-tube placement on 12/23/2018. EGD showed erosive gastritis. 3. Advanced Parkinson's disease. a. Complicated by severe dysphagia, requiring G-tube placement, severe weakness with history of frequent falls. b. Requires total care. c. Complicated by Parkinson's dementia. 4. Hypertension. 5. Depression. a. Complicated by apathy. 6. History of cigarette abuse. 7. Severe dysphagia. a. Modified barium swallow showed penetration and aspiration with thin liquids and delayed swallowing with spillage into the vallecula and piriform sinuses in August 2017. b. Had previously been managed with pureed diet with nectar-thickened liquids. c. Progression complicated by aspiration pneumonia. d. Required enteral feeding through G-tube placed on 12/23/2018. PLAN: The patient has been admitted to [facility] for his total care. We will continue his G-tube feeding. Presently, he is getting Jevity 1.5 calories/mL at 65 mL/h with water flushes of 135 mL every 4 hours. This will be continued. He will continue with aspiration precautions. We will hold him n.p.o. due to his severe risk of aspiration even with pleasure feeding. We will continue his routine medications that will be given by G-tube. We will have Physical Therapy and OT evaluate him and see if his functional capabilities can be gradually progressed. Presently, his code status is a full code. His long-term prognosis is poor with his severely-advanced Parkinson's disease. Job ID: [id number] [facility]
[2018-12-29] MEDS: Adderall 20 Mg Tablet PO SCH (15:14)
[2018-12-29] MEDS: Melatonin 3 MG TAB PER TUBE SCH (20:40)
[2018-12-29] MEDS: Finasteride 5 MG TAB PO SCH (20:40)
[2018-12-29] MEDS ORDERED: risperiDONE 1 MG TAB PER TUBE SCH (21:00)
[2018-12-29] MEDS ORDERED: DESMOPRESSIN ACETATE PO SCH (21:00)
[2018-12-30 05:20] LABS: ALT (SGPT) 37 U/L (8-55); AST (SGOT) 35 U/L (5-34); Albumin 3.2 g/dL (3.4-4.8); Alkaline Phosphatase 100 U/L (40-150); Anion Gap 14 mmol/L (10-20); BUN (Urea Nitrogen) 14 mg/dL (8.4-25.7); Bilirubin, Total 0.3 mg/dL (0.2-1.2); Calc. Creatinine Clearance 106 mL/min (70-130); Calcium 9.2 mg/dL (7.8-10.44); Carbon Dioxide 26 mmol/L (23-31); Chloride 101 mmol/L (98-107); Estimated GFR-MDRD Greater than 90; Globulin 3.7 g/dL (2.4-3.5); Glucose 121 mg/dL (83-110); Potassium 4.2 mmol/L (3.5-5.1); Protein, Total 6.9 g/dL (5.8-8.1); Sodium 137 mmol/L (136-145)
[2018-12-30 05:40] LABS: Hemoglobin 11.9 g/dL (14.0-18.0); Mean Corpuscular HGB CONC 33.6 g/dL (32.0-36.0); Mean Corpuscular Hemoglobin 31.3 pg (27.0-31.0); Mean Corpuscular Volume 92.9 fL (78.0-98.0); Platelet Count 339 thou/uL (130-400); Red Blood Cell (RBC) Count 3.81 mill/uL (4.70-6.10); White Blood Cell (WBC) Count 8.5 thou/uL (4.8-10.8)
[2018-12-30 05:42] LABS: Band 8 % (5-11); Eosinophils 5 % (0-10); Lymphocytes 15 % (21-51); MDiff Complete? YES; Monocytes 6 % (0-10); Myelocyte 2 % (0-0); Neutrophil 62 % (42-75); Reactive Lymphocytes 2 % (0-10)
[2018-12-30 05:43] LABS: Delete Auto Diff?? YES
[2018-12-30] MEDS: Divalproex Sodium 125 mg Sprinkle Capsule PER TUBE SCH ×2 (09:39→20:06)
[2018-12-30] MEDS: Amoxicillin/Potassium Clav 250 mg/5 ml Oral Suspension PER TUBE SCH ×2 (09:39→20:06)
[2018-12-30] MEDS: Tamsulosin HCl 0.4 MG CAP PO SCH (09:40)
[2018-12-30] MEDS: Carbidopa/Levodopa CR 50-200 mg Tablet PO SCH (09:40)
[2018-12-30] MEDS: Polyethylene Glycol 3350 17 GM Packet PER TUBE SCH (09:40)
[2018-12-30] MEDS: Venlafaxine HCl XR 150 MG CAP PO SCH (09:40)
[2018-12-30] MEDS: Carbidopa/Levodopa 25-100 mg Tablet PER TUBE SCH ×3 (09:41→20:06)
--- NOTE | 2018-12-30 09:41 | PRG ---
DATE OF SERVICE: 12/30/2018 SUBJECTIVE: The patient has been up in a Toya chair this morning. He has been much more alert and little more interactive and talking little, but very difficult to understand. He is being held n.p.o. due to his severe dysphagia. His G-tube feedings have been going very well. I have visited with his , Mari, and she said that she and her sons had visited about Tim and asked that he be made DNR in the event of an arrest. These changes have been made. OBJECTIVE: GENERAL: The patient is sitting up in a Toya chair. His eyes were open. He tries to talk a little, hard to understand, but he appears comfortable, and in no distress. VITAL SIGNS: His temperature is 98.9, pulse 98, respirations are 20, O2 saturation 98% on 2 L, blood pressure 113/56. LUNGS: Clear. HEART: Regular rate. EXTREMITIES: No edema. G-tube site clean. LABORATORY DATA: His lab shows an H and H of 11.9 and 35.4, white cell count 8500 with 62% segs, 8% bands, 15% lymphocytes, and a platelet count of 339,000. His sodium is 137, potassium 4.2, BUN 14, creatinine 0.57, GFR greater than 90, glucose 121, albumin 3.2. ASSESSMENT: 1. Severe weakness. a. Presently leaving him bed confined, requiring total care. b. Secondary to his advance Parkinson's and recent aspiration pneumonia. c. Has been progressed up into a Toya chair. Physical Therapy is working with him as of 12/30/2018. 2. Hospitalized at [facility] from 12/18/2018 to 12/28/2018 for aspiration pneumonia with sepsis, progression of his Parkinson's with severe dysphagia , requiring G-tube placement on 12/23/2018. EGD showed erosive gastritis. 3. Advanced Parkinson's disease. a. Complicated by severe dysphagia, requiring G-tube placement, severe weakness with history of frequent falls. 1. G-tube feeding going well as of 12/30/2018. The patient is being held n.p.o. due to the high aspiration risk. b. Requires total care. c. Complicated by Parkinson's dementia. 4. Hypertension. 5. Depression. a. Complicated by apathy. b. He patient is more alert today as of 12/30/2018. 6. History of cigarette abuse. 7. Severe dysphagia. a. Modified barium swallow showed penetration and aspiration with thin liquids and delayed swallowing with spillage into the vallecula and piriform sinuses in August 2017. b. Had previously been managed with pureed diet with nectar-thickened liquids. c. Progression complicated by aspiration pneumonia. d. Required enteral feeding through G-tube placed on 12/23/2018. e. G-tube feeding going well as of 12/30/2018. PLAN: Continue present care. Continue G-tube feeding. Physical Therapy will work with him in an effort to try to improve his functional capability. We will see how he does. This may be very limited with the advanced Parkinson's. Job ID: [id number] [facility]
[2018-12-30] MEDS: Adderall 20 Mg Tablet PO SCH (10:18)
[2018-12-30] MEDS: risperiDONE 1 MG TAB PER TUBE SCH (17:10)
[2018-12-30] MEDS: Finasteride 5 MG TAB PO SCH (20:06)
[2018-12-30] MEDS: DESMOPRESSIN ACETATE 0.2 MG PER TUBE SCH (20:07)
[2018-12-30] MEDS: Melatonin 3 MG TAB PER TUBE SCH (20:07)
[2018-12-31] MEDS: Amoxicillin/Potassium Clav 250 mg/5 ml Oral Suspension PER TUBE SCH ×2 (09:15→20:24)
[2018-12-31] MEDS: Venlafaxine HCl XR 150 MG CAP PO SCH (09:16)
[2018-12-31] MEDS: Divalproex Sodium 125 mg Sprinkle Capsule PER TUBE SCH ×2 (09:16→20:25)
[2018-12-31] MEDS: Polyethylene Glycol 3350 17 GM Packet PER TUBE SCH (09:16)
[2018-12-31] MEDS: Carbidopa/Levodopa 25-100 mg Tablet PER TUBE SCH ×3 (09:17→20:25)
[2018-12-31] MEDS: Tamsulosin HCl 0.4 MG CAP PO SCH (09:17)
[2018-12-31] MEDS: Adderall 20 Mg Tablet PO SCH ×2 (09:18→15:35)
[2018-12-31] MEDS: risperiDONE 1 MG TAB PER TUBE SCH (16:49)
[2018-12-31] MEDS: DESMOPRESSIN ACETATE 0.2 MG PER TUBE SCH (20:25)
[2018-12-31] MEDS: Finasteride 5 MG TAB PO SCH (20:25)
[2018-12-31] MEDS: Melatonin 3 MG TAB PER TUBE SCH (20:25)
[2019-01-01] MEDS: Carbidopa/Levodopa 25-100 mg Tablet PER TUBE SCH ×3 (08:52→20:20)
[2019-01-01] MEDS: Venlafaxine HCl XR 150 MG CAP PO SCH (08:52)
[2019-01-01] MEDS: Polyethylene Glycol 3350 17 GM Packet PER TUBE SCH (08:52)
[2019-01-01] MEDS: Divalproex Sodium 125 mg Sprinkle Capsule PER TUBE SCH ×2 (08:52→20:20)
[2019-01-01] MEDS: Tamsulosin HCl 0.4 MG CAP PO SCH (08:52)
[2019-01-01] MEDS: Adderall 20 Mg Tablet PO SCH (08:53)
[2019-01-01] MEDS: Amoxicillin/Potassium Clav 250 mg/5 ml Oral Suspension PER TUBE SCH ×2 (08:54→20:18)
[2019-01-01] MEDS: risperiDONE 1 MG TAB PER TUBE SCH (17:00)
[2019-01-01] MEDS: Finasteride 5 MG TAB PO SCH (20:20)
[2019-01-01] MEDS: Melatonin 3 MG TAB PER TUBE SCH (20:20)
[2019-01-01] MEDS: DESMOPRESSIN ACETATE 0.2 MG PER TUBE SCH (20:21)
[2019-01-02] MEDS: Adderall 20 Mg Tablet PO SCH (09:27)
[2019-01-02] MEDS: Amoxicillin/Potassium Clav 250 mg/5 ml Oral Suspension PER TUBE SCH ×2 (09:27→20:44)
[2019-01-02] MEDS: Divalproex Sodium 125 mg Sprinkle Capsule PER TUBE SCH ×2 (09:28→20:35)
[2019-01-02] MEDS: Carbidopa/Levodopa 25-100 mg Tablet PER TUBE SCH ×3 (09:28→20:44)
[2019-01-02] MEDS: Tamsulosin HCl 0.4 MG CAP PO SCH (09:28)
[2019-01-02] MEDS: Venlafaxine HCl XR 150 MG CAP PO SCH (09:28)
[2019-01-02] MEDS: Polyethylene Glycol 3350 17 GM Packet PER TUBE SCH (09:29)
[2019-01-02] MEDS: risperiDONE 1 MG TAB PER TUBE SCH (16:41)
[2019-01-02] MEDS: DESMOPRESSIN ACETATE 0.2 MG PER TUBE SCH (20:35)
[2019-01-02] MEDS: Melatonin 3 MG TAB PER TUBE SCH (20:35)
[2019-01-02] MEDS: Finasteride 5 MG TAB PO SCH (20:35)
[2019-01-03] MEDS: Polyethylene Glycol 3350 17 GM Packet PER TUBE SCH (09:19)
[2019-01-03] MEDS: Venlafaxine HCl XR 150 MG CAP PO SCH (09:20)
[2019-01-03] MEDS: Tamsulosin HCl 0.4 MG CAP PO SCH (09:20)
[2019-01-03] MEDS: Divalproex Sodium 125 mg Sprinkle Capsule PER TUBE SCH ×2 (09:20→20:00)
[2019-01-03] MEDS: Amoxicillin/Potassium Clav 250 mg/5 ml Oral Suspension PER TUBE SCH ×2 (09:21→19:59)
[2019-01-03] MEDS: Adderall 20 Mg Tablet PO SCH (09:27)
[2019-01-03] MEDS: Carbidopa/Levodopa 25-100 mg Tablet PER TUBE SCH ×3 (09:27→19:59)
--- NOTE | 2019-01-03 11:59 | PRG ---
DATE OF SERVICE: 01/03/2019 SUBJECTIVE: This morning, Tim has been up in a wheelchair, takes maximum assist. The patient can stand with assistance, but has troubles, very stiff. Leg seems to jump a little bit. His tube feedings are going well. He really has minimal capability of communicating. At times, he will speak a few words. This morning, he was not able to say anything. OBJECTIVE: GENERAL: The patient is sitting up in a chair. He is alert. He appears comfortable. VITAL SIGNS: Temperature of 97, pulse 85, respirations 18, O2 saturation 94% on 3 L, blood pressure 139/67. LUNGS: Clear. There are occasionally some little mild coarseness on inspiration coming from the upper airways and oropharynx from the difficulty with handling of any saliva. HEART: Regular rate. EXTREMITIES: No edema. ASSESSMENT: 1. Severe weakness. a. Presently leaving him bed confined, requiring total care. b. Secondary to his advance Parkinson's and recent aspiration pneumonia. c. Has been progressed to where he sits up in a wheelchair. He stands but requires maximal effort with standing as of 01/03/2019. 2. Hospitalized at [facility] from 12/18/2018 to 12/28/2018 for aspiration pneumonia with sepsis, progression of his Parkinson's with severe dysphagia , requiring G-tube placement on 12/23/2018. EGD showed erosive gastritis. 3. Advanced Parkinson's disease. a. Complicated by severe dysphagia, requiring G-tube placement, severe weakness with history of frequent falls. 1. G-tube feeding going well as of 12/30/2018. The patient is being held n.p.o. due to the high aspiration risk. b. Requires total care. c. Complicated by Parkinson's dementia. 4. Hypertension. 5. Depression. a. Complicated by apathy. b. He patient is more alert today as of 12/30/2018. 6. History of cigarette abuse. 7. Severe dysphagia. a. Modified barium swallow showed penetration and aspiration with thin liquids and delayed swallowing with spillage into the vallecula and piriform sinuses in August 2017. b. Had previously been managed with pureed diet with nectar-thickened liquids. c. Progression complicated by aspiration pneumonia. d. Required enteral feeding through G-tube placed on 12/23/2018. e. G-tube feeding going well as of 01/03/2019. 8. DNR status. PLAN: Continue present care. Continue G-tube feedings. Continue PT efforts. [facility]: [id number] [facility]
[2019-01-03] MEDS: risperiDONE 1 MG TAB PER TUBE SCH (17:09)
[2019-01-03] MEDS: DESMOPRESSIN ACETATE 0.2 MG PER TUBE SCH (20:00)
[2019-01-03] MEDS: Finasteride 5 MG TAB PO SCH (20:00)
[2019-01-03] MEDS: Melatonin 3 MG TAB PER TUBE SCH (20:00)
[2019-01-04] MEDS ORDERED: Scopolamine 1.5 mg/72 hour Patch TD SCH (08:00)
[2019-01-04] MEDS: Carbidopa/Levodopa 25-100 mg Tablet PER TUBE SCH ×3 (09:08→20:16)
[2019-01-04] MEDS: Venlafaxine HCl XR 150 MG CAP PO SCH (09:08)
[2019-01-04] MEDS: Tamsulosin HCl 0.4 MG CAP PO SCH (09:08)
[2019-01-04] MEDS: Polyethylene Glycol 3350 17 GM Packet PER TUBE SCH (09:08)
[2019-01-04] MEDS: Divalproex Sodium 125 mg Sprinkle Capsule PER TUBE SCH ×2 (09:08→20:16)
[2019-01-04] MEDS: Adderall 20 Mg Tablet PO SCH (09:09)
[2019-01-04] MEDS: Amoxicillin/Potassium Clav 250 mg/5 ml Oral Suspension PER TUBE SCH ×2 (09:09→20:16)
--- NOTE | 2019-01-04 10:11 | PRG ---
DATE OF SERVICE: 01/04/2019 SUBJECTIVE: The patient's condition is about the same. Physical Therapy is working with him. He can get up in a wheelchair with maximum assistance and then he can stand, but again requires maximum assistance. His G-tube feedings are going well. Periodically, he accumulates increased secretions in the upper airway and develops a rattling. Sometimes this is high enough that it can be suctioned with Yankauer. OBJECTIVE: GENERAL: This morning, the patient is coming back from therapy. He is in a wheelchair. His eyes were open, but he has a very expressionless face. He does not attempt to talk. VITAL SIGNS: Show a temperature of 98.6, pulse 99, respirations 18, O2 saturation 92% on 3 L, and blood pressure 163/77. HEENT: His mouth, mucous membranes are moist. LUNGS: Clear, but there are some mild coarseness of expiratory breath sounds coming from the upper airway. HEART: Regular rate. NEUROLOGIC: The patient is alert, but not communicative and very stiff from the Parkinson's. ASSESSMENT: 1. Severe weakness. a. Presently leaving him bed confined, requiring total care. b. Secondary to his advance Parkinson's and recent aspiration pneumonia. c. The patient is able to sit up in a wheelchair and stand, but requires maximum assistance with transfers and the standing effort. This is unchanged as of 01/04/2019. 2. Hospitalized at [facility] from 12/18/2018 to 12/28/2018 for aspiration pneumonia with sepsis, progression of his Parkinson's with severe dysphagia , requiring G-tube placement on 12/23/2018. EGD showed erosive gastritis. 3. Advanced Parkinson's disease. a. Complicated by severe dysphagia, requiring G-tube placement, severe weakness with history of frequent falls. 1. G-tube feeding going well as of 01/04/2019. The patient continues to be held n.p.o. due to the high aspiration risk. b. Requires total care. c. Complicated by Parkinson's dementia. 4. Hypertension. 5. Depression. a. Complicated by apathy. b. The patient is alert, but not communicative as of 01/04/2019. 6. History of cigarette abuse. 7. Severe dysphagia. a. Modified barium swallow showed penetration and aspiration with thin liquids and delayed swallowing with spillage into the vallecula and piriform sinuses in August 2017. b. Had previously been managed with pureed diet with nectar-thickened liquids. c. Progression complicated by aspiration pneumonia. d. Required enteral feeding through G-tube placed on 12/23/2018. e. G-tube feeding going well as of 01/04/2019. 8. DNR status. PLAN: Continue G-tube feeding. Continue PT efforts. We will stop his potassium chloride. We will try the patient on scopolamine patch and see if this will help some with the secretions, but we will observe for potential side effects. Job ID: [id number] [facility]
[2019-01-04] MEDS: Acetaminophen 325 MG TAB PER TUBE PRN (15:11)
--- NOTE | 2019-01-04 16:26 | RAD ---
SINGLE VIEW OF THE CHEST: 01/04/19 COMPARISON: 12/24/18 HISTORY: Coarse breath sounds. FINDINGS: Single view of the chest shows a normal sized cardiomediastinal silhouette. There is no evidence of c onsolidation, mass, or pleural effusion. The bones are unremarkable. IMPRESSION: No evidence of acute cardiopulmonary disease. POS: [facility]
[2019-01-04 16:46] LABS: Anion Gap 13 mmol/L (10-20); BUN (Urea Nitrogen) 13 mg/dL (8.4-25.7); Calc. Creatinine Clearance 112 mL/min (70-130); Calcium 8.9 mg/dL (7.8-10.44); Carbon Dioxide 26 mmol/L (23-31); Chloride 97 mmol/L (98-107); Estimated GFR-MDRD Greater than 90; Glucose 112 mg/dL (83-110); Potassium 4.2 mmol/L (3.5-5.1); Sodium 132 mmol/L (136-145)
[2019-01-04] MEDS: risperiDONE 1 MG TAB PER TUBE SCH (17:03)
[2019-01-04 17:08] LABS: Eosinophils 1 % (0-10); Hemoglobin 12.6 g/dL (14.0-18.0); Lymphocytes 6 % (21-51); MDiff Complete? YES; Mean Corpuscular HGB CONC 33.4 g/dL (32.0-36.0); Mean Corpuscular Hemoglobin 31.2 pg (27.0-31.0); Mean Corpuscular Volume 93.3 fL (78.0-98.0); Mean Platelet Volume 5.7 fL (7.4-10.4); Monocytes 5 % (0-10); Neutrophil 87 % (42-75); Platelet Count 430 thou/uL (130-400); Platelet Morphology Comment Appears Increased; RBC Distribution Width 12.2 % (11.5-14.5); Reactive Lymphocytes 1 % (0-10); Red Blood Cell (RBC) Count 4.04 mill/uL (4.70-6.10); White Blood Cell (WBC) Count 19.5 thou/uL (4.8-10.8)
[2019-01-04] MEDS: Sodium Chloride 0.9% 1,000 ML IV SCH (18:12)
[2019-01-04] MEDS: cefTRIAXone\\ROCEPHIN 2 GM in Sodium Chloride 0.9% 100 ML IVPB SCH (18:12)
[2019-01-04] MEDS: Finasteride 5 MG TAB PO SCH (20:16)
[2019-01-04] MEDS: DESMOPRESSIN ACETATE 0.2 MG PER TUBE SCH (20:17)
[2019-01-04] MEDS: Melatonin 3 MG TAB PER TUBE SCH (20:17)
[2019-01-05 05:30] LABS: #Eosinphils 0.3 thou/uL (0.0-0.7); #Lymphocytes 1.3 thou/uL (1.20-3.40); #Monocytes 0.6 thou/uL (0.11-0.59); %Basophils 0.3 % (0.0-1.0); %Eosinophils 1.9 % (0.0-10.0); %Lymphocytes 9.1 % (21.0-51.0); %Monocytes 4.2 % (0.0-10.0); %Neutrophils 84.5 % (42.0-75.0); Hemoglobin 11.7 g/dL (14.0-18.0); Mean Corpuscular HGB CONC 33.3 g/dL (32.0-36.0); Mean Corpuscular Volume 93.3 fL (78.0-98.0); Mean Platelet Volume 5.8 fL (7.4-10.4); Platelet Count 375 thou/uL (130-400); RBC Distribution Width 12.1 % (11.5-14.5); Red Blood Cell (RBC) Count 3.76 mill/uL (4.70-6.10); White Blood Cell (WBC) Count 14.2 thou/uL (4.8-10.8)
[2019-01-05 05:32] LABS: Anion Gap 12 mmol/L (10-20); BUN (Urea Nitrogen) 11 mg/dL (8.4-25.7); Calc. Creatinine Clearance 110 mL/min (70-130); Calcium 8.6 mg/dL (7.8-10.44); Carbon Dioxide 28 mmol/L (23-31); Chloride 99 mmol/L (98-107); Estimated GFR-MDRD Greater than 90; Glucose 128 mg/dL (83-110); Potassium 3.9 mmol/L (3.5-5.1); Sodium 135 mmol/L (136-145)
--- NOTE | 2019-01-05 07:02 | PRG ---
DATE OF SERVICE: 01/04/2019 TIME: Around 04:15 p.m. SUBJECTIVE: The nurse called me and said Tim was much less responsive than usual. She could not arouse him. She also noticed that his temperature was elevated to 100.4. X-ray and lab were ordered during the process of obtaining a chest x- ray. The movement seemed to stimulate him and he was more alert. OBJECTIVE: GENERAL: The patient was sitting upright in bed. His eyes were open. He tried to talk to me a little bit when I asked him how he was doing, could not understand though what he was saying. HEENT: Mouth; there is a little whitish mucus in the posterior pharynx. LUNGS: There are some coarse breath sounds over the right anterior and posterior chest. There were no rales. No definite wheeze. Left chest was clear. HEART: Regular rate. SKIN: No rash. LABORATORY DATA: Chest x-ray was done and showed no evidence of acute cardiopulmonary disease. There was no consolidation or pleural effusion. His lab showed a sodium of 132, potassium of 4.2, BUN 13, creatinine 0.54, GFR greater than 90, glucose 112. His H and H were 12.6 and 37.7, white blood cell count 19,500 with 87% segs, 6% lymphocytes, and platelet count of 430. ASSESSMENT: 1 Lower respiratory tract infection, possible from some aspiration. a. Presenting with low-grade fever and some congestion. Chest x-ray showed no definite infiltrate on 01/04/2019. PLAN: We will start the patient on IV Rocephin, use the neb treatments as needed. We will cautiously hydrate the patient with IV fluids. [facility] [id number] [facility]
[2019-01-05] MEDS: Sodium Chloride 0.9% 1,000 ML IV SCH ×2 (07:29→17:24)
[2019-01-05] MEDS: Tamsulosin HCl 0.4 MG CAP PO SCH (07:33)
[2019-01-05] MEDS: Adderall 20 Mg Tablet PO SCH (07:33)
[2019-01-05] MEDS: Divalproex Sodium 125 mg Sprinkle Capsule PER TUBE SCH ×2 (07:34→21:17)
[2019-01-05] MEDS: Polyethylene Glycol 3350 17 GM Packet PER TUBE SCH (07:34)
[2019-01-05] MEDS: Venlafaxine HCl XR 150 MG CAP PO SCH (07:34)
[2019-01-05] MEDS: Carbidopa/Levodopa 25-100 mg Tablet PER TUBE SCH ×3 (07:34→21:17)
[2019-01-05] MEDS: Amoxicillin/Potassium Clav 250 mg/5 ml Oral Suspension PER TUBE SCH ×2 (07:35→21:14)
[2019-01-05] MEDS: Scopolamine 1.5 mg/72 hour Patch TD SCH (08:24)
--- NOTE | 2019-01-05 09:00 | PRG ---
DATE OF SERVICE: 01/05/2019 SUBJECTIVE: The patient is up in a wheelchair with therapy this morning. During the night, he had no fever. He does have the upper airway secretions that he just cannot clear. He coughs occasionally, but cannot generate enough cough to expectorate this. I had stopped the scopolamine patch that was started yesterday in the event this was contributing to the incident that he had yesterday, but doubt this had anything to do with this. We will restart this to see if this will help any with the upper airway secretions. OBJECTIVE: GENERAL: The patient is sitting up in chair. He is alert. He appears comfortable, in no distress. He occasionally will have a productive sounding cough, but cannot expectorate these upper airway secretions. VITAL SIGNS: His temperature is 98.2, pulse 97, respirations 18, O2 saturation 93%, and blood pressure 144/68. LUNGS: The patient has moderate breath sounds. There are no rales. He does have coarse rhonchi coming from the upper airway that are heard particularly on expiration. HEART: Regular rate. EXTREMITIES: No edema. LABORATORY DATA: His lab this morning shows an H and H of 11.7 and 35.1, white cell count is down to 14,200, 85% segs, 9% lymphocytes, and platelet count of 375, 000. His sodium 135, potassium 3.9, BUN 11, creatinine 0.55, and glucose 128. ASSESSMENT: 1. Severe weakness. a. Presently leaving him bed confined, requiring total care. b. Secondary to his advance Parkinson's and recent aspiration pneumonia. c. The patient is able to sit up in a wheelchair and stand, but requires maximum assistance with transfers and the standing effort. This is unchanged as of 01/05/2019. 2. Hospitalized at [facility] from 12/18/2018 to 12/28/2018 for aspiration pneumonia with sepsis, progression of his Parkinson's with severe dysphagia , requiring G-tube placement on 12/23/2018. EGD showed erosive gastritis. 3. Advanced Parkinson's disease. a. Complicated by severe dysphagia, requiring G-tube placement, severe weakness with history of frequent falls. 1. G-tube feeding going well as of 01/04/2019. The patient continues to be held n.p.o. due to the high aspiration risk. b. Requires total care. c. Complicated by Parkinson's dementia. 4. Hypertension. 5. Depression. a. Complicated by apathy. b. The patient is alert, but not communicative as of 01/04/2019. 6. History of cigarette abuse. 7. Severe dysphagia. a. Modified barium swallow showed penetration and aspiration with thin liquids and delayed swallowing with spillage into the vallecula and piriform sinuses in August 2017. b. Had previously been managed with pureed diet with nectar-thickened liquids. c. Progression complicated by aspiration pneumonia. d. Required enteral feeding through G-tube placed on 12/23/2018. e. G-tube feeding going well as of 01/05/2019. 8. DNR status. 9. Lower respiratory tract infection. a. Presenting with fever, decreased responsiveness, and coarse rhonchi over the right chest with chest x-ray showing no infiltrate on 01/04/2019. b. Secondary to probable aspiration. c. He has severe difficulty handling his upper airway secretions and saliva secondary to the severe dysphagia from the Parkinson's as of 2018. PLAN: The patient looks a little better than what he did yesterday afternoon. We will continue his fluids. Results on the blood cultures are pending. We will continue the Rocephin. We will restart the scopolamine patch and continue therapy. Long-term prognosis is very poor with this advanced progressive Parkinson disease. Job ID: [id number] [facility]
[2019-01-05] MEDS: risperiDONE 1 MG TAB PER TUBE SCH (17:22)
[2019-01-05] MEDS: cefTRIAXone\\ROCEPHIN 2 GM in Sodium Chloride 0.9% 100 ML IVPB SCH (17:23)
[2019-01-05] MEDS: Melatonin 3 MG TAB PER TUBE SCH (21:17)
[2019-01-05] MEDS: Finasteride 5 MG TAB PO SCH (21:17)
[2019-01-05] MEDS: DESMOPRESSIN ACETATE 0.2 MG PER TUBE SCH (21:18)
[2019-01-06 05:13] LABS: #Basophils 0.1 thou/uL (0.0-0.2); #Eosinphils 0.3 thou/uL (0.0-0.7); #Lymphocytes 1.5 thou/uL (1.20-3.40); #Monocytes 0.5 thou/uL (0.11-0.59); #Neutrophils 6.6 thou/uL (1.40-6.50); %Basophils 0.8 % (0.0-1.0); %Eosinophils 2.9 % (0.0-10.0); %Lymphocytes 17.1 % (21.0-51.0); %Monocytes 5.2 % (0.0-10.0); Hemoglobin 11.3 g/dL (14.0-18.0); Mean Corpuscular HGB CONC 34.3 g/dL (32.0-36.0); Mean Corpuscular Hemoglobin 31.7 pg (27.0-31.0); Mean Corpuscular Volume 92.3 fL (78.0-98.0); Mean Platelet Volume 5.9 fL (7.4-10.4); Platelet Count 343 thou/uL (130-400); RBC Distribution Width 12.5 % (11.5-14.5); Red Blood Cell (RBC) Count 3.58 mill/uL (4.70-6.10); White Blood Cell (WBC) Count 8.9 thou/uL (4.8-10.8)
[2019-01-06 05:23] LABS: Anion Gap 11 mmol/L (10-20); BUN (Urea Nitrogen) 11 mg/dL (8.4-25.7); Calc. Creatinine Clearance 112 mL/min (70-130); Calcium 8.5 mg/dL (7.8-10.44); Carbon Dioxide 27 mmol/L (23-31); Chloride 104 mmol/L (98-107); Estimated GFR-MDRD Greater than 90; Glucose 122 mg/dL (83-110); Potassium 3.7 mmol/L (3.5-5.1); Sodium 138 mmol/L (136-145)
[2019-01-06] MEDS: Venlafaxine HCl XR 150 MG CAP PO SCH (08:27)
[2019-01-06] MEDS: Divalproex Sodium 125 mg Sprinkle Capsule PER TUBE SCH ×2 (08:27→20:40)
[2019-01-06] MEDS: Carbidopa/Levodopa 25-100 mg Tablet PER TUBE SCH ×3 (08:27→20:41)
[2019-01-06] MEDS: Tamsulosin HCl 0.4 MG CAP PO SCH (08:27)
[2019-01-06] MEDS: Adderall 20 Mg Tablet PO SCH (08:28)
--- NOTE | 2019-01-06 08:57 | PRG ---
DATE OF SERVICE: 01/06/2019 SUBJECTIVE: This morning, the patient has developed a little diarrhea. He is sitting up. He is sitting partially up in bed. Physical Therapy doing range of motion exercises on his leg and he is assisting with this. He has much better cough effort today. He does try to talk some. He seems more interactive than he has been. OBJECTIVE: GENERAL: The patient is sitting up. He is elevated in bed about 45 degrees. He has still a little productive cough, but cough is much deeper with a lot more ever than it has been. He appears very comfortable. VITAL SIGNS: His temperature is 98.7, pulse 105, respirations are 16, O2 saturation 94% on 3 L by nasal cannula, blood pressure 163/73. LUNGS: Clear with no rales. He does have some coarseness on expiration. HEART: Regular rate. LABORATORY DATA: Shows an H and H of 11.3 and 33, white blood cell count 8900 with 74% segs, 17% lymphocytes, and a platelet count of 343,000. His sodium is 138, potassium 3.7, BUN 11, creatinine 0.54, glucose 122. His blood cultures that were collected on 01/04 have no growth on both specimens. ASSESSMENT: 1. Severe weakness. a. Presently leaving him bed confined, requiring total care. b. Secondary to his advance Parkinson's and recent aspiration pneumonia. c. The patient is able to sit up in a wheelchair and stand, but requires maximum assistance with transfers and the standing effort. This is unchanged as of 01/06/2019. 2. Hospitalized at [facility] from 12/18/2018 to 12/28/2018 for aspiration pneumonia with sepsis, progression of his Parkinson's with severe dysphagia , requiring G-tube placement on 12/23/2018. EGD showed erosive gastritis. 3. Advanced Parkinson's disease. a. Complicated by severe dysphagia, requiring G-tube placement, severe weakness with history of frequent falls. 1. G-tube feeding going well as of 01/04/2019. The patient continues to be held n.p.o. due to the high aspiration risk. b. Requires total care. c. Complicated by Parkinson's dementia. 4. Hypertension. 5. Depression. a. Complicated by apathy. b. The patient is alert, but not communicative as of 01/04/2019. 6. History of cigarette abuse. 7. Severe dysphagia. a. Modified barium swallow showed penetration and aspiration with thin liquids and delayed swallowing with spillage into the vallecula and piriform sinuses in August 2017. b. Had previously been managed with pureed diet with nectar-thickened liquids. c. Progression complicated by aspiration pneumonia. d. Required enteral feeding through G-tube placed on 12/23/2018. e. G-tube feeding going well as of 01/06/2019. 8. DNR status. 9. Lower respiratory tract infection. a. Presenting with low-grade fever, decreased responsiveness and coarse breath sounds over the right chest and negative chest x-ray. b. The blood cultures drawn on 01/04 have no growth x2. C. Improved as of 01/06/2019. PLAN: The patient has developed some diarrhea that may be coming from the Augmentin. This will be stopped. We will place the patient on Florastor. We will obtain a stool for C. diff. We will stop the IV fluids. [facility] ID: [id number] [facility]
[2019-01-06] MEDS ORDERED: Saccharomyces boulardii 250 MG CAP PER TUBE SCH (10:15)
[2019-01-06] MEDS ORDERED: Lantiseptic Ointment 130 GM JAR TOP PRN (12:01)
[2019-01-06] MEDS: risperiDONE 1 MG TAB PER TUBE SCH (17:13)
[2019-01-06] MEDS: Acetaminophen 325 MG TAB PER TUBE PRN (17:13)
[2019-01-06] MEDS: cefTRIAXone\\ROCEPHIN 2 GM in Sodium Chloride 0.9% 100 ML IVPB SCH (17:14)
[2019-01-06] MEDS: Finasteride 5 MG TAB PO SCH (20:40)
[2019-01-06] MEDS: Melatonin 3 MG TAB PER TUBE SCH (20:40)
[2019-01-06] MEDS: DESMOPRESSIN ACETATE 0.2 MG PER TUBE SCH (20:42)
[2019-01-07] MEDS: Venlafaxine HCl XR 150 MG CAP PO SCH (09:13)
[2019-01-07] MEDS: Divalproex Sodium 125 mg Sprinkle Capsule PER TUBE SCH ×2 (09:13→20:30)
[2019-01-07] MEDS: Tamsulosin HCl 0.4 MG CAP PO SCH (09:13)
[2019-01-07] MEDS: Carbidopa/Levodopa 25-100 mg Tablet PER TUBE SCH ×3 (09:14→20:33)
[2019-01-07] MEDS: Saccharomyces boulardii 250 MG CAP PER TUBE SCH (09:14)
[2019-01-07] MEDS: Adderall 20 Mg Tablet PO SCH (09:15)
[2019-01-07] MEDS: Lantiseptic Ointment 130 GM JAR TOP SCH (09:26)
[2019-01-07] MEDS: risperiDONE 1 MG TAB PER TUBE SCH (17:32)
[2019-01-07] MEDS: cefTRIAXone\\ROCEPHIN 2 GM in Sodium Chloride 0.9% 100 ML IVPB SCH (17:32)
[2019-01-07] MEDS: Melatonin 3 MG TAB PER TUBE SCH (20:34)
[2019-01-07] MEDS: Finasteride 5 MG TAB PO SCH (20:34)
[2019-01-07] MEDS: DESMOPRESSIN ACETATE 0.2 MG PER TUBE SCH (20:36)
[2019-01-08] MEDS: Tamsulosin HCl 0.4 MG CAP PO SCH (08:48)
[2019-01-08] MEDS: Scopolamine 1.5 mg/72 hour Patch TD SCH (08:48)
[2019-01-08] MEDS: Carbidopa/Levodopa 25-100 mg Tablet PER TUBE SCH ×3 (08:48→21:03)
[2019-01-08] MEDS: Saccharomyces boulardii 250 MG CAP PER TUBE SCH (08:48)
[2019-01-08] MEDS: Venlafaxine HCl XR 150 MG CAP PO SCH (08:49)
[2019-01-08] MEDS: Divalproex Sodium 125 mg Sprinkle Capsule PER TUBE SCH ×2 (08:49→21:03)
[2019-01-08] MEDS: Lantiseptic Ointment 130 GM JAR TOP SCH (08:50)
[2019-01-08] MEDS: Adderall 20 Mg Tablet PO SCH (08:50)
[2019-01-08] MEDS: risperiDONE 1 MG TAB PER TUBE SCH (17:27)
[2019-01-08] MEDS: cefTRIAXone\\ROCEPHIN 2 GM in Sodium Chloride 0.9% 100 ML IVPB SCH (17:28)
[2019-01-08] MEDS: Melatonin 3 MG TAB PER TUBE SCH (21:02)
[2019-01-08] MEDS: Finasteride 5 MG TAB PO SCH (21:04)
[2019-01-08] MEDS: DESMOPRESSIN ACETATE 0.2 MG PER TUBE SCH (21:13)
[2019-01-09] MEDS: Adderall 20 Mg Tablet PO SCH (09:28)
[2019-01-09] MEDS: Divalproex Sodium 125 mg Sprinkle Capsule PER TUBE SCH ×2 (09:29→20:15)
[2019-01-09] MEDS: Carbidopa/Levodopa 25-100 mg Tablet PER TUBE SCH ×3 (09:29→20:15)
[2019-01-09] MEDS: Tamsulosin HCl 0.4 MG CAP PO SCH (09:29)
[2019-01-09] MEDS: Venlafaxine HCl XR 150 MG CAP PO SCH (09:29)
[2019-01-09] MEDS: Saccharomyces boulardii 250 MG CAP PER TUBE SCH (09:29)
[2019-01-09] MEDS: Lantiseptic Ointment 130 GM JAR TOP SCH (09:29)
[2019-01-09] MEDS: risperiDONE 1 MG TAB PER TUBE SCH (17:22)
[2019-01-09] MEDS: cefTRIAXone\\ROCEPHIN 2 GM in Sodium Chloride 0.9% 100 ML IVPB SCH (17:22)
[2019-01-09] MEDS ORDERED: Clotrimazole 1% Cream 15 GM TUBE TOP PRN (19:33)
[2019-01-09] MEDS: Clotrimazole 1% Cream 15 GM TUBE TOP SCH (20:13)
[2019-01-09] MEDS: Melatonin 3 MG TAB PER TUBE SCH (20:14)
[2019-01-09] MEDS: Finasteride 5 MG TAB PO SCH (20:15)
[2019-01-09] MEDS: DESMOPRESSIN ACETATE 0.2 MG PER TUBE SCH (20:16)
[2019-01-10 06:30] LABS: Anion Gap 12 mmol/L (10-20); BUN (Urea Nitrogen) 17 mg/dL (8.4-25.7); Calc. Creatinine Clearance 89 mL/min (70-130); Calcium 9.2 mg/dL (7.8-10.44); Carbon Dioxide 31 mmol/L (23-31); Chloride 98 mmol/L (98-107); Estimated GFR-MDRD Greater than 90; Glucose 123 mg/dL (83-110); Potassium 4.2 mmol/L (3.5-5.1); Sodium 137 mmol/L (136-145)
[2019-01-10 06:32] LABS: #Basophils 0.1 thou/uL (0.0-0.2); #Eosinphils 0.2 thou/uL (0.0-0.7); #Lymphocytes 1.7 thou/uL (1.20-3.40); #Monocytes 0.6 thou/uL (0.11-0.59); #Neutrophils 5.1 thou/uL (1.40-6.50); %Eosinophils 2.6 % (0.0-10.0); %Lymphocytes 22.3 % (21.0-51.0); %Monocytes 7.8 % (0.0-10.0); %Neutrophils 66.3 % (42.0-75.0); Hemoglobin 12.8 g/dL (14.0-18.0); Mean Corpuscular HGB CONC 32.6 g/dL (32.0-36.0); Mean Corpuscular Hemoglobin 30.7 pg (27.0-31.0); Mean Corpuscular Volume 94.2 fL (78.0-98.0); Mean Platelet Volume 5.8 fL (7.4-10.4); Platelet Count 317 thou/uL (130-400); RBC Distribution Width 12.1 % (11.5-14.5); Red Blood Cell (RBC) Count 4.17 mill/uL (4.70-6.10); White Blood Cell (WBC) Count 7.7 thou/uL (4.8-10.8)
[2019-01-10] MEDS ORDERED: Bisacodyl 10 MG SUPP PR PRN (07:49)
--- NOTE | 2019-01-10 09:11 | PRG ---
DATE OF SERVICE: 01/07/2019 SUBJECTIVE: The patient is up in a lounge chair, sitting up about 75 degrees. He is awake and looking around. He is a little more interactive, but still when he speaks some, it is very difficult to understand. He does have a better cough effort. It sounds productive, but he cannot expectorate it. He does not appear in any acute distress. He is still having some diarrhea. OBJECTIVE: GENERAL: The patient is sitting upright in a lounge chair. He is alert, appears in no distress. Does have a productive cough. VITAL SIGNS: His temperature is 97.5, pulse 73, respirations 18, O2 saturation 93% on 3 L, blood pressure 131/62. His weight is 141. LUNGS: Have improved breath sounds. There are expiratory rhonchi, but no rales. No wheeze. HEART: Regular rate. LABORATORY DATA: The stools for Clostridium difficile antigen and toxin were both negative. Blood cultures drawn on 01/04, have no growth x2. ASSESSMENT: 1. Severe weakness. a. Presently leaving him bed confined, requiring total care. b. Secondary to his advance Parkinson's and recent aspiration pneumonia. c. Tolerating sitting up in a Toya chair, but still requires maximum assistance with transfers as of 01/07/2019. 2. Hospitalized at [facility] from 12/18/2018 to 12/28/2018 for aspiration pneumonia with sepsis, progression of his Parkinson's with severe dysphagia , requiring G-tube placement on 12/23/2018. EGD showed erosive gastritis. 3. Advanced Parkinson's disease. a. Complicated by severe dysphagia, requiring G-tube placement, severe weakness with history of frequent falls. 1. G-tube feeding going well as of 01/07/2019. The patient continues to be held n.p.o. due to the high aspiration risk. b. Requires total care. c. Complicated by Parkinson's dementia. 4. Hypertension. 5. Depression. a. Complicated by apathy. b. The patient is alert, attempts to talk, but very difficult to understand as of 01/07/2019. 6. History of cigarette abuse. 7. Severe dysphagia. a. Modified barium swallow showed penetration and aspiration with thin liquids and delayed swallowing with spillage into the vallecula and piriform sinuses in August 2017. b. Had previously been managed with pureed diet with nectar-thickened liquids. c. Progression complicated by aspiration pneumonia. d. Required enteral feeding through G-tube placed on 12/23/2018. e. G-tube feeding going well as of 01/07/2019. 8. DNR status. 9. Lower respiratory tract infection. a. Presenting with low-grade fever, decreased responsiveness and coarse breath sounds over the right chest and negative chest x-ray. b. The blood cultures drawn on 01/04 have no growth x2. c. Improved as of 01/07/2019. 10. Diarrhea. a. Clostridium difficile toxin and antigen, negative. b. Suspect secondary to the Augment and the MiraLAX, both of which have been stopped. c. Gradual improvement as of 01/07/2019. PLAN: Continue present care. Continue the scopolamine patch. We will continue the ceftriaxone for the probable aspiration, it was started on 01/04. We will continue this for total of 7 days. [facility]: [id number] [facility]
--- NOTE | 2019-01-10 09:13 | PRG ---
DATE OF SERVICE: 01/08/2019 SUBJECTIVE: The patient is doing better today. He is sitting up in bed and speaking a little bit, some of which I could understand. He asked how I was and said he felt better. OBJECTIVE: GENERAL: The patient is sitting upright in bed. He is alert, more talkative than usual. VITAL SIGNS: His temperature is 97.9, pulse 84, respirations 20, O2 saturation 94% on 2 L, blood pressure 147/68. LUNGS: Clear. HEART: Regular rate. EXTREMITIES: No edema. ASSESSMENT: 1. Severe weakness. a. Presently leaving him bed confined, requiring total care. b. Secondary to his advance Parkinson's and recent aspiration pneumonia. c. The patient is able to sit up in a wheelchair and stand, but requires maximum assistance with transfers and the standing effort. This is unchanged as of 01/06/2019. 2. Hospitalized at [facility] from 12/18/2018 to 12/28/2018 for aspiration pneumonia with sepsis, progression of his Parkinson's with severe dysphagia , requiring G-tube placement on 12/23/2018. EGD showed erosive gastritis. 3. Advanced Parkinson's disease. a. Complicated by severe dysphagia, requiring G-tube placement, severe weakness with history of frequent falls. 1. G-tube feeding going well as of 01/08/2019. The patient continues to be held n.p.o. due to the high aspiration risk. b. Requires total care. c. Complicated by Parkinson's dementia. 4. Hypertension. 5. Depression. a. Complicated by apathy. b. The patient is alert, but not communicative as of 01/04/2019. 6. History of cigarette abuse. 7. Severe dysphagia. a. Modified barium swallow showed penetration and aspiration with thin liquids and delayed swallowing with spillage into the vallecula and piriform sinuses in August 2017. b. Had previously been managed with pureed diet with nectar-thickened liquids. c. Progression complicated by aspiration pneumonia. d. Required enteral feeding through G-tube placed on 12/23/2018. e. G-tube feeding going well as of 01/08/2019. 8. DNR status. 9. Lower respiratory tract infection. a. Presenting with low-grade fever, decreased responsiveness and coarse breath sounds over the right chest and negative chest x-ray. b. The blood cultures drawn on 01/04 have no growth x2. c. Improved as of 01/08/2019. PLAN: The patient is doing much better. The diarrhea is resolving. His lungs have been very clear today. He does not have the productive cough. He is more interactive. We will continue present care. The patient is scheduled to receive a 7-day course of the ceftriaxone. Last dose will be on 01/10. Job ID: [id number] [facility]
[2019-01-10] MEDS: Adderall 20 Mg Tablet PO SCH (09:17)
[2019-01-10] MEDS: Venlafaxine HCl XR 150 MG CAP PO SCH (09:18)
[2019-01-10] MEDS: Carbidopa/Levodopa 25-100 mg Tablet PER TUBE SCH ×3 (09:18→20:06)
[2019-01-10] MEDS: Polyethylene Glycol 3350 17 GM Packet PER TUBE SCH (09:18)
[2019-01-10] MEDS: Divalproex Sodium 125 mg Sprinkle Capsule PER TUBE SCH ×2 (09:18→20:06)
[2019-01-10] MEDS: Saccharomyces boulardii 250 MG CAP PER TUBE SCH (09:18)
[2019-01-10] MEDS: Tamsulosin HCl 0.4 MG CAP PO SCH (09:18)
--- NOTE | 2019-01-10 09:18 | PRG ---
DATE OF SERVICE: 01/10/2019 SUBJECTIVE: The patient is lying in bed. He is awake, but not talkative. Nurses said that he has not had a bowel movement for a couple of days. He has not had any significant cough or congestion. OBJECTIVE: GENERAL: The patient is lying in bed, alert, but not talkative. He acts like he talks, but just hears a little moan type of sound when he attempts to talk. He does not look uncomfortable. VITAL SIGNS: His temperature is 98.6, pulse 95, respirations 18, O2 saturation 90%, blood pressure is 102/52. LUNGS: Clear. HEART: Regular rate. EXTREMITIES: No edema. ASSESSMENT: 1. Severe weakness. a. Presently leaving him bed confined, requiring total care. b. Secondary to his advance Parkinson's and recent aspiration pneumonia. c. The patient is able to sit up in a wheelchair and stand, but requires maximum assistance with transfers and the standing effort. This is unchanged as of 01/10/2019. 2. Hospitalized at [facility] from 12/18/2018 to 12/28/2018 for aspiration pneumonia with sepsis, progression of his Parkinson's with severe dysphagia , requiring G-tube placement on 12/23/2018. EGD showed erosive gastritis. 3. Advanced Parkinson's disease. a. Complicated by severe dysphagia, requiring G-tube placement, severe weakness with history of frequent falls. 1. G-tube feeding going well as of 01/10/2019. The patient continues to be held n.p.o. due to the high aspiration risk. b. Requires total care. c. Complicated by Parkinson's dementia. 4. Hypertension. 5. Depression. a. Complicated by apathy. b. The patient is alert, but not communicative as of 01/04/2019. 6. History of cigarette abuse. 7. Severe dysphagia. a. Modified barium swallow showed penetration and aspiration with thin liquids and delayed swallowing with spillage into the vallecula and piriform sinuses in August 2017. b. Had previously been managed with pureed diet with nectar-thickened liquids. c. Progression complicated by aspiration pneumonia. d. Required enteral feeding through G-tube placed on 12/23/2018. e. G-tube feeding going well as of 01/10/2019. 8. DNR status. 9. Lower respiratory tract infection. a. Presenting with low-grade fever, decreased responsiveness and coarse breath sounds over the right chest and negative chest x-ray. b. The blood cultures drawn on 01/04 have no growth x2. c. Resolving as of 01/10/2019, due to complete his Rocephin on 01/11. 10. Diarrhea. a. Resolved as of 01/10/2019. PLAN: Continue present care. The patient due to complete his Rocephin tomorrow. We will restart his MiraLAX and also order Dulcolax suppository if needed. [facility] ID[facility] [id number] [facility]
[2019-01-10] MEDS: Clotrimazole 1% Cream 15 GM TUBE TOP SCH ×2 (09:19→20:07)
[2019-01-10] MEDS: Lantiseptic Ointment 130 GM JAR TOP SCH (09:19)
[2019-01-10] MEDS ORDERED: Sodium Chloride 0.9% 1,000 ML BAG ONE (12:59)
[2019-01-10] MEDS: risperiDONE 1 MG TAB PER TUBE SCH (17:41)
[2019-01-10] MEDS: cefTRIAXone\\ROCEPHIN 2 GM in Sodium Chloride 0.9% 100 ML IVPB SCH (17:41)
[2019-01-10] MEDS: Finasteride 5 MG TAB PO SCH (20:06)
[2019-01-10] MEDS: Melatonin 3 MG TAB PER TUBE SCH (20:06)
[2019-01-10] MEDS: DESMOPRESSIN ACETATE 0.2 MG PER TUBE SCH (20:08)
[2019-01-11] MEDS: Adderall 20 Mg Tablet PO SCH (08:11)
[2019-01-11] MEDS: Polyethylene Glycol 3350 17 GM Packet PER TUBE SCH (08:12)
[2019-01-11] MEDS: Venlafaxine HCl XR 150 MG CAP PO SCH (08:13)
[2019-01-11] MEDS: Tamsulosin HCl 0.4 MG CAP PO SCH (08:13)
[2019-01-11] MEDS: Saccharomyces boulardii 250 MG CAP PER TUBE SCH (08:13)
[2019-01-11] MEDS: Scopolamine 1.5 mg/72 hour Patch TD SCH (08:14)
[2019-01-11] MEDS: Divalproex Sodium 125 mg Sprinkle Capsule PER TUBE SCH ×2 (08:14→20:49)
[2019-01-11] MEDS: Carbidopa/Levodopa 25-100 mg Tablet PER TUBE SCH ×3 (08:14→20:53)
[2019-01-11] MEDS: Lantiseptic Ointment 130 GM JAR TOP SCH (08:16)
[2019-01-11] MEDS: Clotrimazole 1% Cream 15 GM TUBE TOP SCH ×2 (08:16→20:55)
--- NOTE | 2019-01-11 10:33 | PRG ---
DATE OF SERVICE: 01/11/2019 SUBJECTIVE: The patient is up in a geriatric chair. He was not able really to communicate with, where he could be understood. He did try to talk some, but it was just not understandable. Nurses report no change in his condition. OBJECTIVE: GENERAL: The patient is sitting up in a geriatric chair in upright position. His eyes are open. He tries to talk, but it is not understandable. He does not appear in any distress. VITAL SIGNS: Shows a temperature of 98.3, pulse 105, respirations 18, O2 saturation 94% on 2 L, blood pressure 147/69. LUNGS: Clear. HEART: Regular rate. EXTREMITIES: No edema. ASSESSMENT: 1. Severe weakness. a. Presently leaving him bed confined, requiring total care. b. Secondary to his advance Parkinson's and recent aspiration pneumonia. c. The patient tolerating sitting up in a geriatric chair or wheelchair, requires maximum assistance with transfers as of 01/11/2019. 2. Hospitalized at [facility] from 12/18/2018 to 12/28/2018 for aspiration pneumonia with sepsis, progression of his Parkinson's with severe dysphagia , requiring G-tube placement on 12/23/2018. EGD showed erosive gastritis. 3. Advanced Parkinson's disease. a. Complicated by severe dysphagia, requiring G-tube placement, severe weakness with history of frequent falls. 1. G-tube feeding going well as of 01/11/2019. The patient continues to be held n.p.o. due to the high aspiration risk. b. Requires total care. c. Complicated by Parkinson's dementia. 4. Hypertension. 5. Depression. a. Complicated by apathy. b. The patient is alert, but not communicative as of 01/04/2019. 6. History of cigarette abuse. 7. Severe dysphagia. a. Modified barium swallow showed penetration and aspiration with thin liquids and delayed swallowing with spillage into the vallecula and piriform sinuses in August 2017. b. Had previously been managed with pureed diet with nectar-thickened liquids. c. Progression complicated by aspiration pneumonia. d. Required enteral feeding through G-tube placed on 12/23/2018. e. G-tube feeding going well as of 01/10/2019. 8. DNR status. 9. Lower respiratory tract infection. a. Presenting with low-grade fever, decreased responsiveness and coarse breath sounds over the right chest and negative chest x-ray. b. The blood cultures drawn on 01/04 have no growth x2. c. Resolving as of 01/11/2019. We will complete his Rocephin today on . 10. Diarrhea. a. Resolved as of 01/10/2019. PLAN: The patient received his last dose of Rocephin today. We will discontinue the IV access after that. Continue G-tube feedings. is making arrangements to take care of him in the home with hospice. Once things were arranged there, we will discharge. Job ID: [id number] [facility]
[2019-01-11] MEDS: risperiDONE 1 MG TAB PER TUBE SCH (17:03)
[2019-01-11] MEDS: Melatonin 3 MG TAB PER TUBE SCH (20:49)
[2019-01-11] MEDS: Finasteride 5 MG TAB PO SCH (20:54)
[2019-01-11] MEDS: DESMOPRESSIN ACETATE 0.2 MG PER TUBE SCH (21:27)
[2019-01-12] MEDS: Divalproex Sodium 125 mg Sprinkle Capsule PER TUBE SCH ×2 (08:40→21:07)
[2019-01-12] MEDS: Adderall 20 Mg Tablet PO SCH (08:40)
[2019-01-12] MEDS: Carbidopa/Levodopa 25-100 mg Tablet PER TUBE SCH ×3 (08:40→21:08)
[2019-01-12] MEDS: Polyethylene Glycol 3350 17 GM Packet PER TUBE SCH (08:40)
[2019-01-12] MEDS: Clotrimazole 1% Cream 15 GM TUBE TOP SCH ×2 (08:41→21:17)
[2019-01-12] MEDS: Tamsulosin HCl 0.4 MG CAP PO SCH (08:41)
[2019-01-12] MEDS: Venlafaxine HCl XR 150 MG CAP PO SCH (08:41)
[2019-01-12] MEDS: Lantiseptic Ointment 130 GM JAR TOP SCH ×2 (08:41→21:15)
[2019-01-12] MEDS: Saccharomyces boulardii 250 MG CAP PER TUBE SCH (08:44)
--- NOTE | 2019-01-12 10:33 | PRG ---
DATE OF SERVICE: 01/12/2019 SUBJECTIVE: The patient has been doing well. His G-tube feedings are going well. He completed his Rocephin yesterday during a period where he was a little more agitated. He was speaking more and it was very easy to understand. He was asking for his . He later gradually settled down after his risperidone. OBJECTIVE: GENERAL: This morning, the patient is lying in bed. He is alert and attempts to talk, but cannot understand what he is saying, and he appears comfortable and in no distress. VITAL SIGNS: Temperature 97.8, pulse 97, respirations 20, O2 saturation 91% on 2 L, blood pressure 133/69. LUNGS: Clear. Breath sounds little harder to hear at the posterior bases due to the shallow respirations. HEART: Regular rate. EXTREMITIES: No edema. ASSESSMENT: 1. Severe weakness. a. Presently leaving him bed confined, requiring total care. b. Secondary to his advance Parkinson's and recent aspiration pneumonia. c. The patient tolerating sitting up in a geriatric chair or wheelchair, requires maximum assistance with transfers as of 01/12/2019. 2. Hospitalized at [facility] from 12/18/2018 to 12/28/2018 for aspiration pneumonia with sepsis, progression of his Parkinson's with severe dysphagia , requiring G-tube placement on 12/23/2018. EGD showed erosive gastritis. 3. Advanced Parkinson's disease. a. Complicated by severe dysphagia, requiring G-tube placement, severe weakness with history of frequent falls. 1. G-tube feeding going well as of 01/12/2019. The patient continues to be held n.p.o. due to the high aspiration risk. b. Requires total care. c. Complicated by Parkinson's dementia. 4. Hypertension. 5. Depression. a. Complicated by apathy. b. The patient is alert, but not communicative as of 01/04/2019. 6. History of cigarette abuse. 7. Severe dysphagia. a. Modified barium swallow showed penetration and aspiration with thin liquids and delayed swallowing with spillage into the vallecula and piriform sinuses in August 2017. b. Had previously been managed with pureed diet with nectar-thickened liquids. c. Progression complicated by aspiration pneumonia. d. Required enteral feeding through G-tube placed on 12/23/2018. e. G-tube feeding going well as of 01/12/2019. 8. DNR status. 9. Lower respiratory tract infection. a. Presenting with low-grade fever, decreased responsiveness and coarse breath sounds over the right chest and negative chest x-ray. b. The blood cultures drawn on 01/04 have no growth x2. c. Resolved as of 01/12/2019. Completed Rocephin on 01/11/2019. 10. Diarrhea. a. Resolved as of 01/10/2019. PLAN: Continue present care. is making preparation for his care in the home under hospice. [facility] ID: [id number] [facility]
[2019-01-12] MEDS: risperiDONE 1 MG TAB PER TUBE SCH (17:14)
[2019-01-12] MEDS: Acetaminophen 325 MG TAB PER TUBE PRN (17:15)
[2019-01-12] MEDS: Finasteride 5 MG TAB PO SCH (21:08)
[2019-01-12] MEDS: Melatonin 3 MG TAB PER TUBE SCH (21:08)
[2019-01-12] MEDS: DESMOPRESSIN ACETATE 0.2 MG PER TUBE SCH (21:10)
[2019-01-13] MEDS: Tamsulosin HCl 0.4 MG CAP PO SCH (09:41)
[2019-01-13] MEDS: Polyethylene Glycol 3350 17 GM Packet PER TUBE SCH (09:41)
[2019-01-13] MEDS: Saccharomyces boulardii 250 MG CAP PER TUBE SCH (09:41)
[2019-01-13] MEDS: Divalproex Sodium 125 mg Sprinkle Capsule PER TUBE SCH ×2 (09:41→20:26)
[2019-01-13] MEDS: Adderall 20 Mg Tablet PO SCH (09:41)
[2019-01-13] MEDS: Lantiseptic Ointment 130 GM JAR TOP SCH (09:42)
[2019-01-13] MEDS: Clotrimazole 1% Cream 15 GM TUBE TOP SCH ×2 (09:42→20:35)
[2019-01-13] MEDS: Carbidopa/Levodopa 25-100 mg Tablet PER TUBE SCH ×3 (09:42→20:25)
[2019-01-13] MEDS: Venlafaxine HCl XR 150 MG CAP PO SCH (09:42)
--- NOTE | 2019-01-13 09:46 | PRG ---
DATE OF SERVICE: 01/13/2019 SUBJECTIVE: The patient had a good night. Physical Therapy got him sitting on the edge of the bed and putting a gait belt on him in preparatory to transferring him to a Toya chair. Tim is awake, and I could understand good morning, but after that I could not understand what he said. He appears comfortable. OBJECTIVE: VITAL SIGNS: Show a temperature of 97.9, pulse 93, respirations 18 , O2 saturation 92% on 2 L, blood pressure 134/68. LUNGS: Clear. HEART: Regular rate. NEUROLOGIC: The patient is alert. I could understand only the first couple of words that he said. He is very stiff all over. He has not yet had his Sinemet. ASSESSMENT: 1. Severe weakness. a. Presently leaving him bed confined, requiring total care. b. Secondary to his advance Parkinson's and recent aspiration pneumonia. c. The patient tolerating sitting up in a geriatric chair or wheelchair, requires maximum assistance with transfers as of 01/13/2019. 2. Hospitalized at [facility] from 12/18/2018 to 12/28/2018 for aspiration pneumonia with sepsis, progression of his Parkinson's with severe dysphagia , requiring G-tube placement on 12/23/2018. EGD showed erosive gastritis. 3. Advanced Parkinson's disease. a. Complicated by severe dysphagia, requiring G-tube placement, severe weakness with history of frequent falls. 1. G-tube feeding going well as of 01/13/2019. The patient continues to be held n.p.o. due to the high aspiration risk. b. Requires total care. c. Complicated by Parkinson's dementia. 4. Hypertension. 5. Depression. a. Complicated by apathy. b. The patient is alert, but not communicative as of 01/04/2019. 6. History of cigarette abuse. 7. Severe dysphagia. a. Modified barium swallow showed penetration and aspiration with thin liquids and delayed swallowing with spillage into the vallecula and piriform sinuses in August 2017. b. Had previously been managed with pureed diet with nectar-thickened liquids. c. Progression complicated by aspiration pneumonia. d. Required enteral feeding through G-tube placed on 12/23/2018. e. G-tube feeding going well as of 01/13/2019. 8. DNR status. 9. Lower respiratory tract infection. a. Presenting with low-grade fever, decreased responsiveness and coarse breath sounds over the right chest and negative chest x-ray. b. The blood cultures drawn on 01/04 have no growth x2. c. Resolved as of 01/12/2019. Completed Rocephin on 01/11/2019. 10. Diarrhea. a. Resolved as of 01/10/2019. PLAN: The patient's condition is stable. The patient's along with hospice are making preparation for his discharge on 01/18/2019. [facility] [id number] [facility]
[2019-01-13] MEDS: risperiDONE 1 MG TAB PER TUBE SCH (16:54)
[2019-01-13 18:35] VITALS: BMI 19.3
[2019-01-13] MEDS: Melatonin 3 MG TAB PER TUBE SCH (20:25)
[2019-01-13] MEDS: Finasteride 5 MG TAB PO SCH (20:26)
[2019-01-13] MEDS: DESMOPRESSIN ACETATE 0.2 MG PER TUBE SCH (20:28)
--- NOTE | 2019-01-14 08:46 | PRG ---
DATE OF SERVICE: 01/14/2019 SUBJECTIVE: Nurse said the patient is doing well this morning. Yesterday, he had a good day. Yesterday, the nurses said they found him standing by the side of the bed. He had gotten up somehow on his own. He was assisted back, had been observed to get up by himself. OBJECTIVE: GENERAL: This morning, he is alert and tries to talk, but could not understand what he says. He appears very comfortable, in no distress. VITAL SIGNS: His temp is 98.5, pulse 93, respirations 20, O2 saturation on room air 90%, blood pressure 130/69. LUNGS: Clear. HEART: Regular rate. ASSESSMENT: 1. Severe weakness. a. Leaving him bed confined, requiring total care on admission. b. Secondary to his advance Parkinson's and recent aspiration pneumonia. c. The patient tolerating sitting up in a geriatric chair or wheelchair, requires maximum assistance with transfers as of 01/14/2019. 2. Hospitalized at [facility] from 12/18/2018 to 12/28/2018 for aspiration pneumonia with sepsis, progression of his Parkinson's with severe dysphagia , requiring G-tube placement on 12/23/2018. EGD showed erosive gastritis. 3. Advanced Parkinson's disease. a. Complicated by severe dysphagia, requiring G-tube placement, severe weakness with history of frequent falls. 1. G-tube feeding going well as of 01/14/2019. The patient continues to be held n.p.o. due to the high aspiration risk. b. Requires total care. c. Complicated by Parkinson's dementia. 4. Hypertension. 5. Depression. a. Complicated by apathy. b. Controlled as of 01/14/2019. 6. History of cigarette abuse. 7. Severe dysphagia. a. Modified barium swallow showed penetration and aspiration with thin liquids and delayed swallowing with spillage into the vallecula and piriform sinuses in August 2017. b. Had previously been managed with pureed diet with nectar-thickened liquids. c. Progression complicated by aspiration pneumonia. d. Required enteral feeding through G-tube placed on 12/23/2018. e. G-tube feeding going well as of 01/14/2019. 8. DNR status. 9. Lower respiratory tract infection. a. Presenting with low-grade fever, decreased responsiveness and coarse breath sounds over the right chest and negative chest x-ray. b. The blood cultures drawn on 01/04 have no growth x2. c. Resolved as of 01/12/2019. Completed Rocephin on 01/11/2019. 10. Diarrhea. a. Resolved as of 01/10/2019. PLAN: The patient's condition is stable. The nurse visited with the hospice nurse, , and the patient's home equipment will all be delivered on Thursday, , with plans for him to be discharged on Thursday, the 01/17. Job ID: [id number] [facility]
[2019-01-14] MEDS: Adderall 20 Mg Tablet PO SCH (09:04)
[2019-01-14] MEDS: Divalproex Sodium 125 mg Sprinkle Capsule PER TUBE SCH ×2 (09:05→20:59)
[2019-01-14] MEDS: Scopolamine 1.5 mg/72 hour Patch TD SCH (09:05)
[2019-01-14] MEDS: Saccharomyces boulardii 250 MG CAP PER TUBE SCH (09:05)
[2019-01-14] MEDS: Venlafaxine HCl XR 150 MG CAP PO SCH (09:06)
[2019-01-14] MEDS: Carbidopa/Levodopa 25-100 mg Tablet PER TUBE SCH ×3 (09:06→20:54)
[2019-01-14] MEDS: Tamsulosin HCl 0.4 MG CAP PO SCH (09:06)
[2019-01-14] MEDS: Clotrimazole 1% Cream 15 GM TUBE TOP SCH ×2 (09:07→20:54)
[2019-01-14] MEDS: Polyethylene Glycol 3350 17 GM Packet PER TUBE SCH (09:07)
[2019-01-14] MEDS: risperiDONE 1 MG TAB PER TUBE SCH (16:57)
[2019-01-14] MEDS: DESMOPRESSIN ACETATE 0.2 MG PER TUBE SCH (20:57)
[2019-01-14] MEDS: Melatonin 3 MG TAB PER TUBE SCH (20:58)
[2019-01-14] MEDS: Finasteride 5 MG TAB PO SCH (20:58)
[2019-01-15] MEDS: Saccharomyces boulardii 250 MG CAP PER TUBE SCH (09:45)
[2019-01-15] MEDS: Divalproex Sodium 125 mg Sprinkle Capsule PER TUBE SCH ×2 (09:45→20:52)
[2019-01-15] MEDS: Carbidopa/Levodopa 25-100 mg Tablet PER TUBE SCH ×3 (09:45→20:53)
[2019-01-15] MEDS: Polyethylene Glycol 3350 17 GM Packet PER TUBE SCH (09:46)
[2019-01-15] MEDS: Tamsulosin HCl 0.4 MG CAP PO SCH (09:46)
[2019-01-15] MEDS: Lantiseptic Ointment 130 GM JAR TOP SCH (09:46)
[2019-01-15] MEDS: Clotrimazole 1% Cream 15 GM TUBE TOP SCH ×2 (09:46→20:54)
[2019-01-15] MEDS: Venlafaxine HCl XR 150 MG CAP PO SCH (09:46)
[2019-01-15] MEDS: Adderall 20 Mg Tablet PO SCH (10:00)
[2019-01-15] MEDS: risperiDONE 1 MG TAB PER TUBE SCH (16:41)
[2019-01-15] MEDS: DESMOPRESSIN ACETATE 0.2 MG PER TUBE SCH (20:50)
[2019-01-15] MEDS: Melatonin 3 MG TAB PER TUBE SCH (20:52)
[2019-01-15] MEDS: Finasteride 5 MG TAB PO SCH (20:52)
[2019-01-16] MEDS: Adderall 20 Mg Tablet PO SCH (08:43)
[2019-01-16] MEDS: Tamsulosin HCl 0.4 MG CAP PO SCH (08:44)
[2019-01-16] MEDS: Polyethylene Glycol 3350 17 GM Packet PER TUBE SCH (08:44)
[2019-01-16] MEDS: Divalproex Sodium 125 mg Sprinkle Capsule PER TUBE SCH ×2 (08:44→20:59)
[2019-01-16] MEDS: Saccharomyces boulardii 250 MG CAP PER TUBE SCH (08:44)
[2019-01-16] MEDS: Carbidopa/Levodopa 25-100 mg Tablet PER TUBE SCH ×3 (08:44→21:01)
[2019-01-16] MEDS: Venlafaxine HCl XR 150 MG CAP PO SCH (08:44)
[2019-01-16] MEDS: Clotrimazole 1% Cream 15 GM TUBE TOP SCH ×2 (08:45→21:11)
[2019-01-16] MEDS: Acetaminophen 325 MG TAB PER TUBE PRN (08:49)
[2019-01-16] MEDS: Lantiseptic Ointment 130 GM JAR TOP SCH ×2 (08:51→09:00)
[2019-01-16] MEDS: risperiDONE 1 MG TAB PER TUBE SCH (16:27)
[2019-01-16] MEDS: DESMOPRESSIN ACETATE 0.2 MG PER TUBE SCH (20:58)
[2019-01-16] MEDS: Finasteride 5 MG TAB PO SCH (21:00)
[2019-01-16] MEDS: Melatonin 3 MG TAB PER TUBE SCH (21:00)
[2019-01-17] MEDS: Scopolamine 1.5 mg/72 hour Patch TD SCH (09:08)
[2019-01-17] MEDS: Saccharomyces boulardii 250 MG CAP PER TUBE SCH (09:09)
[2019-01-17] MEDS: Carbidopa/Levodopa 25-100 mg Tablet PER TUBE SCH ×3 (09:09→20:24)
[2019-01-17] MEDS: Venlafaxine HCl XR 150 MG CAP PO SCH (09:09)
[2019-01-17] MEDS: Tamsulosin HCl 0.4 MG CAP PO SCH (09:09)
[2019-01-17] MEDS: Polyethylene Glycol 3350 17 GM Packet PER TUBE SCH (09:09)
[2019-01-17] MEDS: Divalproex Sodium 125 mg Sprinkle Capsule PER TUBE SCH ×2 (09:09→20:23)
[2019-01-17] MEDS: Adderall 20 Mg Tablet PO SCH (09:10)
[2019-01-17] MEDS: Lantiseptic Ointment 130 GM JAR TOP SCH (09:37)
[2019-01-17] MEDS: Clotrimazole 1% Cream 15 GM TUBE TOP SCH ×2 (09:43→20:14)
--- NOTE | 2019-01-17 12:57 | PRG ---
DATE OF SERVICE: 01/16/2019 SUBJECTIVE: Nurses report no change in the patient's condition. Tube feeding is going well. His had said that she is not ready at home and does not want him discharged until 01/18. The previous ambulance transfer home that was scheduled for 01/17 will be canceled and changed to 01/18. OBJECTIVE: GENERAL: The patient lied in bed. He is alert, appears comfortable, and in no distress. VITAL SIGNS: Show temperature of 99.3, pulse 89, respirations 16, O2 saturations 94% on 3 L, and blood pressure 129/60. LUNGS: Clear. HEART: Regular rate. EXTREMITIES: No edema. ASSESSMENT: Please type the assessment from the progress note of 01/14 with these changes. 1.c. Change the date to 01/16. 3.a.1. Change the date to 01/16. 7.e. Change the date to 01/16. PLAN: Continue present care. We will continue PT, continue G-tube feeding. Discharge home will be delayed until 01/18/2019. Job ID: [id number]
[2019-01-17] MEDS: risperiDONE 1 MG TAB PER TUBE SCH (16:08)
[2019-01-17] MEDS: DESMOPRESSIN ACETATE 0.2 MG PER TUBE SCH (20:22)
[2019-01-17] MEDS: Finasteride 5 MG TAB PO SCH (20:23)
[2019-01-17] MEDS: Melatonin 3 MG TAB PER TUBE SCH (20:24)
[2019-01-18 08:27] VITALS: BP 153/67; TEMP 97.6
[2019-01-18] MEDS: Adderall 20 Mg Tablet PO SCH (08:59)
[2019-01-18] MEDS: Clotrimazole 1% Cream 15 GM TUBE TOP SCH (09:00)
[2019-01-18] MEDS: Lantiseptic Ointment 130 GM JAR TOP SCH (09:00)
[2019-01-18] MEDS: Venlafaxine HCl XR 150 MG CAP PO SCH (09:00)
[2019-01-18] MEDS: Polyethylene Glycol 3350 17 GM Packet PER TUBE SCH (09:00)
[2019-01-18] MEDS: Tamsulosin HCl 0.4 MG CAP PO SCH (09:00)
[2019-01-18] MEDS: Carbidopa/Levodopa 25-100 mg Tablet PER TUBE SCH (09:00)
[2019-01-18] MEDS: Divalproex Sodium 125 mg Sprinkle Capsule PER TUBE SCH (09:00)
--- NOTE | 2019-01-18 09:25 | DIS ---
DATE OF ADMISSION: 12/28/2018 DATE OF DISCHARGE: 01/18/2019 FINAL DIAGNOSES: Please type the assessment from the progress note of 01/14 with these changes: On #1 C, change the date to 01/18. On #3 A 1, change the date to 01/18. On #5 B, change the date to 01/18. #7 E, change the date to 01/18. SUMMARY: The patient is a 73-year-old white male, who has a history of hypertension, depression, and severe Parkinson's disease that has been complicated by Parkinson's dementia and severe dysphagia with aspiration. The patient has been hospitalized at [facility] from 12/18/2018 to 12/28/2018 for aspiration pneumonia with sepsis and progression of his Parkinson's disease and progression of his dysphagia, to where he was aspirating. His aspiration pneumonia cleared. He had a G-tube placed on 12/23/2018, was placed n.p.o., and his nutrition and fluid intake was handled through the G-tube. At the time of his G-tube placement, he was found to have erosive gastritis, that was treated with proton-pump inhibitor. His condition stabilized, but he was left severely weak and requiring total care. He was moved to [facility] on 12/28/2018 for continuation of his G-tube feeding and efforts toward PT and OT, and also in an effort to see if his functional capabilities could be improved. HOSPITAL COURSE: During the patient's hospital stay, he worked with Physical Therapy and required usually maximum assist on transfer from bed to a chair. He did progress to where he was able to walk with his walker and maximum assistance up to 10 to 12 feet, any transferred required maximum assistance. During his hospital stay, he did develop a fever and increased congestion and a lot of upper airway secretions. His repeat chest x-ray showed no infiltrate. It was felt that he had an aspiration with resulting bronchitis. He was managed with IV Rocephin for nebulization treatments and was placed on scopolamine patch, which helped improve the upper airway secretion and saliva production. He improved, the fever resolved, and his lungs cleared. He was treated with the Rocephin IV for 7 days and then this was stopped. His lungs remained clear throughout the remainder of his hospital stay and the upper airway congestion seemed to be much improved. He was held n.p.o. due to his severe dysphagia from the Parkinson's. His G-tube site remained clean and free of any evidence of any infection. He was continued on G-tube feeding with Jevity 1.5 calories/mL at 65 mL/h with water flushes of 135 mL every 4 hours. Aspiration precautions were followed. There was no trouble with the G-tube during his hospitalization. His condition is stabilized. His had opted to manage him at home under Hospice. Arrangements were made and the patient is to be discharged on 01/18/2019. DISPOSITION: DIET: N.p.o., G-tube feeding with Jevity 1.5 calories/mL at 65 mL/h with water flushes of 135 mL every 4 hours. Aspiration precautions. ACTIVITIES: Up in a chair as tolerated. Keep the head of the bed elevated at least 30 degrees. MEDICATIONS: 1. Acetaminophen 650 mg per G-tube every 6 hours p.r.n. 2. Adderall 20 mg one daily per G-tube. 3. Dulcolax suppository 10 mg 1 per rectum daily p.r.n. 4. Sinemet 25/100 three tabs per G-tube t.i.d. 5. Clotrimazole cream to skin fold areas or bottom p.r.n. redness. 6. Desmopressin acetate 0.2 mg per G-tube daily. 7. Depakote Sprinkles 125 mg per G-tube b.i.d. 8. Finasteride 5 mg at bedtime. 9. Lantiseptic to the bottom area b.i.d. and p.r.n. 10. Melatonin 9 mg per G-tube at bedtime. 11. MiraLAX 17 g in 8 ounces water per G-tube daily. 12. Risperidone 4 mg per tube at bedtime. 13. Scopolamine patch 1.5 mg every 3 days. 14. Tamsulosin 0.4 mg daily. 15. Venlafaxine ER 150 mg daily. 16. Verapamil ER 180 mg daily. FOLLOWUP: 1. Hospice has arranged for equipment needed in the home, will also mushroom picker on his care today, 01/18. 2. Follow up with me as needed. CODE STATUS: DNR. Job ID: [id number]
== END 2019-01-18 12:07 | disposition hospice, home (50) | DRG 56 ==
LOC: MADMS 12-28 17:55
PROVIDERS: ADMIT Family Medicine; ATTEND Family Medicine
DX: G20 Parkinson's disease (principal); J69.0 Pneumonitis due to inhalation of food and vomit; F02.80 Dementia in other diseases classified elsewhere, unspecified severity, without behavioral disturbance, psychotic disturbance, mood disturbance, and anxiety; R53.1 Weakness; Z66 Do not resuscitate; I10 Essential (primary) hypertension; F32.9 Major depressive disorder, single episode, unspecified; R45.3 Demoralization and apathy; R13.10 Dysphagia, unspecified; R19.7 Diarrhea, unspecified; J22 Unspecified acute lower respiratory infection; E78.5 Hyperlipidemia, unspecified; Z93.1 Gastrostomy status; Z79.2 Long term (current) use of antibiotics; Z74.01 Bed confinement status; Z88.8 Allergy status to other drugs, medicaments and biological substances; Z87.891 Personal history of nicotine dependence; Z91.81 History of falling
CPT/HCPCS: 36415; 71045; 80048; 80053; 85025; 87040; 87324; 87449; J0696; J3490; J7050